=== PATIENT | male | born 1955 | race Two or more races ===

== ENCOUNTER 2019-12-13 07:27 | Day surgery (SDC) | payer MEDICARE, SELFPAY ==
[2019-12-10 12:56] VITALS: BMI 28.8
--- NOTE | 2019-12-10 13:15 | HO.ANESPROP2 ---
FORMERLY [facility], LATER [facility] Past Medical History Medical History (Updated 12/10/19 @ 13:16 by Cherelle Lindsay) Abdominal mass Allergic rhinitis BPH (benign prostatic hyperplasia) Diabetes Elevated cholesterol Elevated PSA GERD (gastroesophageal reflux disease) Presbyopia Surgical History Surgical History (Updated 12/10/19 @ 13:00 by Mateo Burns) History of inguinal hernia repair, bilateral History of lithotripsy History of local excision of skin lesion History of parathyroidectomy History of prostate surgery Meds Allergies Allergy/AdvReac Type Severity Reaction Status Date / Time aspirin [ASPIRIN] Allergy Unknown LOW Unverified 11/25/19 19:29 PLATELETS Finasteride Allergy Unknown lower Uncoded 09/08/19 00:00 etremity parasthesia Home Medications Medication Instructions Recorded Confirmed Type atorvastatin 1 tab PO DAILY 12/10/19 12/10/19 History doxazosin 2 tab PO DAILY 12/10/19 12/10/19 History dutasteride 1 cap PO DAILY 12/10/19 12/10/19 History fluticasone propionate 1 spray INTRANASAL DAILY 12/10/19 12/10/19 History loratadine 1 tab PO DAILY 12/10/19 12/10/19 History metformin 1 tab PO BID 12/10/19 12/10/19 History omeprazole 1 cap PO DAILY 12/10/19 12/10/19 History Exam Exam Date and Time: December 10, 2019 1315 Height,Weight and Vital Signs: Height 5 ft 8 in Weight 86.183 kg Assessment and Plan Assessment Anesthesia Assessment: Chart Reviewed
[2019-12-13] VITALS (12 sets, daily range): BP systolic 126–145; BP diastolic 79–92; PULSE 66–78; RESP 16–18; TEMP 36.1–36.3; O2SAT 96–98
[2019-12-13 08:20] LABS: Glucose, Whole Blood 94 mg/dL (60-115)
[2019-12-13] MEDS: levoFLOXacin 500 MG TABLET PO (08:35)
[2019-12-13] MEDS: Lactated Ringers 1,000 ML 100 ML IVCONT (08:35)
--- NOTE | 2019-12-13 08:48 | HO.ANESPROP2 ---
[facility] Past Medical History Medical History Abdominal mass Allergic rhinitis BPH (benign prostatic hyperplasia) Diabetes Elevated cholesterol Elevated PSA GERD (gastroesophageal reflux disease) Presbyopia Surgical History Surgical History History of inguinal hernia repair, bilateral History of lithotripsy History of local excision of skin lesion History of parathyroidectomy History of prostate surgery Social History Social History Smoking Status: Never smoker Use of substances other than those prescribed or required for medical reasons: No Have you been hit, kicked, punched, or otherwise hurt by someone within the past year? If so, by whom?: No Advance Directives: No (n/a) Advance Directives Information Provided: No Meds Allergies Allergy/AdvReac Type Severity Reaction Status Date / Time aspirin [ASPIRIN] Allergy Unknown LOW Unverified 11/25/19 19:29 PLATELETS Finasteride Allergy Unknown lower Uncoded 09/08/19 00:00 etremity parasthesia Home Medications Medication Instructions Recorded Confirmed Type atorvastatin 1 tab PO DAILY 12/10/19 12/10/19 History doxazosin 2 tab PO DAILY 12/10/19 12/10/19 History dutasteride 1 cap PO DAILY 12/10/19 12/10/19 History fluticasone propionate 1 spray INTRANASAL DAILY 12/10/19 12/10/19 History loratadine 1 tab PO DAILY 12/10/19 12/10/19 History metformin 1 tab PO BID 12/10/19 12/10/19 History omeprazole 1 cap PO DAILY 12/10/19 12/10/19 History Exam Exam Date and Time: December 13, 2019 0848 Height,Weight and Vital Signs: Height 5 ft 8 in Weight 86.183 kg Last Vital Signs Temp 97 F 12/13/19 08:19 Pulse 72 12/13/19 08:19 Resp 18 12/13/19 08:19 BP 131/80 12/13/19 08:19 Pertinent Lab Results Pertinent Lab Results: Laboratory Tests 12/13/19 08:17 POC Glucose 94 Assessment and Plan Assessment Anesthesia Assessment: Anesthesia Plan Discussed, Consent Obtained and PAT Visit Final Anesthetic Review NPO: Yes ASA Class: II Final Preanesthetic Review: No Changes in Pt Med Stat, Meds & Allergies Reviewed, Consent Obtained/Reviewed, Med/Surg/Anes Hx Reviewed and Anes Risks/Benef Reviewed Patient Risk: Intermediate Procedure Risk: Low Anesthetic Plan Anesthetic Plan: GA Disposition: Standard PACU
--- NOTE | 2019-12-13 11:12 | PM.OP ---
Brief Operative Note Date of procedure: 12/13/19 Pre-op diagnosis: Recurrent BPH Post-op diagnosis: same Procedure: Laser enucleation of prostate Anesthesia: SONIA Surgeon: Sai Snow Pathology: other (prostate) Condition: stable Disposition: same day
[2019-12-13] MEDS: oxyCODONE HCl Immed Release 5 MG TABLET PO (11:26)
--- NOTE | 2019-12-13 12:59 | HO.POSTANES ---
Post Anesthesia Evaluation Post Anesthesia Evaluation Vital Signs: Vital Signs Temp Pulse Resp BP Pulse Ox 12/13/19 12:19 68 18 142/90 H 97 12/13/19 12:04 67 18 145/92 H 97 12/13/19 11:49 68 18 141/90 H 97 12/13/19 11:44 71 18 138/82 96 12/13/19 11:39 66 18 138/85 97 12/13/19 11:34 67 16 126/84 96 12/13/19 11:29 70 18 126/79 97 12/13/19 11:18 69 18 136/84 98 12/13/19 11:13 75 16 144/84 H 96 12/13/19 11:08 72 18 144/85 H 97 12/13/19 11:03 97.3 F 78 16 134/80 96 12/13/19 08:19 97 F 72 18 131/80 Anesthesia: General LMA Mental Status: Awake Pain Control: Satisfactory Nausea/Vomiting: None Hydration: Adequate Anesthesia-Related Issues: No Anes. Related Issues
--- NOTE | 2019-12-14 20:18 | OP_ITS ---
SURGEON: Sai Snow MD PREOPERATIVE DIAGNOSIS: Recurrent benign prostatic hypertrophy. POSTOPERATIVE DIAGNOSIS: Recurrent benign prostatic hypertrophy. PROCEDURE PERFORMED: Laser enucleation of the prostate. ESTIMATED BLOOD LOSS: COMPLICATIONS: ANESTHESIA: General. ASSISTANTS: SPECIMENS: Prostate tissue. INDICATIONS FOR PROCEDURE: This is a 64-year-old male. Progressive urinary weakness of stream and incomplete emptying. On cystoscopy, had regrowth of bilateral lobes. Had procedure performed on prostate in [place] greater than 10 years ago. He is aware that he needs a secondary procedure. DESCRIPTION OF PROCEDURE: After informed consent was verified, the patient was brought to the operating room and placed in supine position. Anesthesia administered per protocol. The patient was placed in modified dorsal lithotomy position and prepped and draped in sterile fashion. Safety pause time-out observed. Antibiotics had been given. A 24-Faroese laser resectoscope placed. No abnormalities of the bladder. Both ureteric orifices were normal in position. There was regrowth of both lateral lobes. We focused first on the right side. We developed the 7 o'clock groove more to the lateral side, undermining the lateral lobe. We then developed a groove at the 11 o'clock position. The intervening tissue was ablated and enucleated. We then moved around to the median lobe and realized there had been some regrowth there. This was removed and the floor was flattened. We moved to the left lobe and a similar procedure was repeated with undermining at the 5 o'clock position and then groove taken in the 1 o'clock position down to fibers and the intervening tissue removed. In the medium lobe area, we did encounter some prostatic calcifications indicative of the junction between the surgical capsule on the rest of the prostate. At the completion of the procedure, we were able to get fragments of the tissue. When the procedure was completed, we had placed a 22-Faroese to a 30 mL Arredondo catheter. He tolerated the procedure well, was extubated in the operating room, and transferred in stable condition to the recovery area. Approximately, 96 kJ energy was used. Please see laser form for further details. MD BETTIE Torrez/ARACELI / [phone] MTDLaurne
== END 2019-12-13 13:00 | disposition home or self-care (01) ==
PROVIDERS: PCP Physician Assistant; Visit Provider Urology
PROC: 0V507ZZ Destruction of Prostate, Via Natural or Artificial Opening (ICD-10-PCS; CPT 52648; principal; 2019-12-13 09:40)
DX: N40.1 Benign prostatic hyperplasia with lower urinary tract symptoms (principal); R39.12 Poor urinary stream; R39.11 Hesitancy of micturition; R97.20 Elevated prostate specific antigen [PSA]; I10 Essential (primary) hypertension; E11.9 Type 2 diabetes mellitus without complications; K21.9 Gastro-esophageal reflux disease without esophagitis; E78.00 Pure hypercholesterolemia, unspecified; J30.9 Allergic rhinitis, unspecified
CPT/HCPCS: 52648; 82947; 88305; J2250; J3010

== ENCOUNTER → 2019-12-16 09:27 | Outpatient (BNVA) | payer MEDICARE, SELFPAY | PROVIDERS: PCP Physician Assistant; Visit Provider Urology | DX: Z48.816 Encounter for surgical aftercare following surgery on the genitourinary system (principal); Z46.6 Encounter for fitting and adjustment of urinary device | CPT/HCPCS: 51798; 99024; 99212 ==

== ENCOUNTER → 2020-01-25 09:55 | Outpatient (BNVA) | payer MEDICARE, SELFPAY | PROVIDERS: PCP Physician Assistant; Referring Provider Physician Assistant; Visit Provider Urology | DX: N40.1 Benign prostatic hyperplasia with lower urinary tract symptoms (principal); N13.8 Other obstructive and reflux uropathy; N52.9 Male erectile dysfunction, unspecified | CPT/HCPCS: 51798; 81002; 99212 ==

== ENCOUNTER 2020-02-11 08:44 | Outpatient (REF) | payer MEDICARE, SELFPAY ==
[2020-02-11 10:14] LABS: MANUAL DIFF FLAG NO
[2020-02-11 10:26] LABS: Basophils Percent Auto 0.4 % (0-2); Eosinophils Absolute Auto 0.1 X10*3/uL (0.0-0.4); Eosinophils Percent Auto 1.3 % (0-4); Hematocrit 46.3 % (42-52); Hemoglobin 14.9 g/dl (14.0-18.0); Imm Gran Abs Auto 0.01 X10*3/uL (0.00-0.03); Imm Gran Pct Auto 0.2 % (0.0-0.4); Lymphocytes Percent Auto 36.8 % (20-40); Mean Corpuscular HGB Conc 32.2 g/dl (31.0-36.0); Mean Corpuscular Hemoglobin 30.2 pg (27.0-33.0); Mean Corpuscular Volume 93.7 fL (80-98); Mean Platelet Volume 12.3 fL (9.4-12.4); Monocytes Absolute Auto 0.6 X10*3/uL (0.1-1.2); Monocytes Percent Auto 10.1 % (2-11); Neutrophils Absolute Auto 2.8 X10*3/uL (2.0-8.3); Neutrophils Percent Auto 51.2 % (45-73); Platelet Count 121 X10*3/uL (160-400); Red Blood Count 4.94 X10*6/uL (4.60-5.80); Red Cell Distribution Width 11.8 % (11.0-16.0); White Blood Count 5.5 X10*3/uL (4.8-10.8)
[2020-02-11 10:36] LABS: Alanine Aminotransferase 35 U/L (0-40); Albumin Level 4.2 g/dL (3.5-5.0); Alkaline Phosphatase 54 U/L (39-117); Anion Gap 14 (12-20); Aspartate Amino Transferase 26 U/L (5-37); Bilirubin Total 0.7 mg/dL (0.0-1.0); Blood Urea Nitrogen 24 mg/dL (9-16); Calcium 8.8 mg/dL (8.4-10.2); Carbon Dioxide 29 mmol/L (22-29); Chloride 101 mmol/L (96-108); Cholesterol 165 mg/dL; Estimated Average Glucose 126 mg/dL; Estimated Glomerular Filt Rate > 60; Glucose Fasting 83 mg/dL (60-99); HDL Cholesterol 50 mg/dL; LDL Cholesterol Calculated 103 mg/dl; Potassium 4.3 mmol/l (3.3-5.1); Sodium 140 mmol/L (135-145); Triglycerides 64 mg/dL
[2020-02-11 10:58] LABS: TSH reflex Free T4 2.48 mIU/mL (0.32-4.0)
[2020-02-11 11:17] LABS: Creatinine Urine 120.58 mg/dL; Microalbum/Creatinine Ratio Ur 70.4 ug/mg cr
== END 2020-02-11 08:45 | disposition home or self-care (01) ==
LOC: HO.LAB 08:44
PROVIDERS: PCP Physician Assistant; Visit Provider Physician Assistant
DX: E11.9 Type 2 diabetes mellitus without complications (principal); I10 Essential (primary) hypertension
CPT/HCPCS: 36415; 80053; 80061; 82043; 83036; 84443; 85025

== ENCOUNTER 2020-04-21 09:23 | Outpatient (REF) | payer MEDICARE, SELFPAY ==
[2020-04-21 11:15] LABS: PSA,Total (Free>4and<10) 2.77 ng/mL (0.00-4.00)
== END 2020-04-21 09:24 | disposition home or self-care (01) ==
LOC: HO.LAB 09:23
PROVIDERS: PCP Physician Assistant; Visit Provider Urology
DX: N40.1 Benign prostatic hyperplasia with lower urinary tract symptoms (principal); N13.8 Other obstructive and reflux uropathy; Z12.5 Encounter for screening for malignant neoplasm of prostate
CPT/HCPCS: 36415; 84153

== ENCOUNTER 2020-07-13 07:12 | Outpatient (REF) | payer MEDICARE, SELFPAY ==
[2020-07-13 08:45] LABS: Hemoglobin 15.5 g/dl (14.0-18.0); Mean Corpuscular Hemoglobin 30.9 pg (27.0-33.0); Mean Corpuscular Volume 93.8 fL (80-98); Mean Platelet Volume 12.1 fL (9.4-12.4); Platelet Count 115 X10*3/uL (160-400); Red Blood Count 5.01 X10*6/uL (4.60-5.80); Red Cell Distribution Width 11.7 % (11.0-16.0); White Blood Count 4.5 X10*3/uL (4.8-10.8)
[2020-07-13 08:58] LABS: Alanine Aminotransferase 33 U/L (0-40); Albumin Level 4.2 g/dL (3.5-5.0); Alkaline Phosphatase 56 U/L (39-117); Anion Gap 13 (12-20); Aspartate Amino Transferase 25 U/L (5-37); Bilirubin Total 0.7 mg/dL (0.0-1.0); Blood Urea Nitrogen 18 mg/dL (9-16); Calcium 9.1 mg/dL (8.4-10.2); Carbon Dioxide 30 mmol/L (22-29); Chloride 102 mmol/L (96-108); Cholesterol 191 mg/dL; Estimated Glomerular Filt Rate > 60; Glucose Fasting 117 mg/dL (60-99); HDL Cholesterol 54 mg/dL; LDL Cholesterol Calculated 127 mg/dl; Potassium 4.5 mmol/L (3.3-5.1); Sodium 140 mmol/L (135-145); Total Protein 7.1 g/dL (6.5-8.0); Triglycerides 54 mg/dL
[2020-07-13 09:11] LABS: Estimated Average Glucose 137 mg/dL; Hemoglobin A1c % 6.4 %
[2020-07-13 09:23] LABS: TSH reflex Free T4 1.49 uIU/mL (0.32-4.0)
== END 2020-07-13 07:13 | disposition home or self-care (01) ==
LOC: HO.LAB 07:12
PROVIDERS: Visit Provider Physician Assistant
DX: I10 Essential (primary) hypertension (principal); E11.9 Type 2 diabetes mellitus without complications
CPT/HCPCS: 36415; 80053; 80061; 83036; 84443; 85027

== ENCOUNTER → 2020-08-03 13:24 | Outpatient (BNVA) | payer MEDICARE, SELFPAY | PROVIDERS: PCP Physician Assistant; Visit Provider Urology | DX: N52.9 Male erectile dysfunction, unspecified (principal); N40.1 Benign prostatic hyperplasia with lower urinary tract symptoms | CPT/HCPCS: 99212 ==

== ENCOUNTER → 2020-11-21 08:26 | Outpatient (BNVA) | payer MEDICARE, SELFPAY | PROVIDERS: PCP Physician Assistant; Referring Provider Physician Assistant; Visit Provider Nurse Practitioner Family | DX: G47.19 Other hypersomnia (principal); G47.9 Sleep disorder, unspecified | CPT/HCPCS: 99202 ==

== ENCOUNTER → 2020-12-12 10:44 | Outpatient (REF) | payer MEDICARE, SELFPAY | LOC: HO.SL 10:44 | PROVIDERS: PCP Physician Assistant; Visit Provider Nurse Practitioner Family | DX: G47.19 Other hypersomnia (principal); G47.9 Sleep disorder, unspecified; G47.00 Insomnia, unspecified; I10 Essential (primary) hypertension; E11.9 Type 2 diabetes mellitus without complications | CPT/HCPCS: 95806 ==

== ENCOUNTER → 2021-02-06 14:37 | Outpatient (BNVA) | payer MEDICARE, SELFPAY | PROVIDERS: PCP Physician Assistant; Visit Provider Urology | DX: N40.1 Benign prostatic hyperplasia with lower urinary tract symptoms (principal); N52.9 Male erectile dysfunction, unspecified; N48.6 Induration penis plastica | CPT/HCPCS: 51798; 99212 ==

== ENCOUNTER 2021-02-26 08:02 | Outpatient (REF) | payer MEDICARE, SELFPAY ==
[2021-02-26 09:11] LABS: Estimated Average Glucose 140 mg/dL; Hemoglobin A1c % 6.5 %
[2021-02-26 09:27] LABS: Alanine Aminotransferase 33 U/L (0-40); Albumin Level 4.2 g/dL (3.5-5.0); Alkaline Phosphatase 49 U/L (39-117); Anion Gap 12 (12-20); Aspartate Amino Transferase 21 U/L (5-37); Bilirubin Total 0.4 mg/dL (0.0-1.0); Blood Urea Nitrogen 17 mg/dL (9-16); Calcium 9.7 mg/dL (8.4-10.2); Carbon Dioxide 32 mmol/L (22-29); Chloride 102 mmol/L (96-108); Cholesterol 174 mg/dL; Estimated Glomerular Filt Rate > 60; Glucose Fasting 91 mg/dL (60-99); HDL Cholesterol 50 mg/dL; LDL Cholesterol Calculated 109 mg/dl; Potassium 4.6 mmol/L (3.3-5.1); Sodium 141 mmol/L (135-145); Total Protein 7.1 g/dL (6.5-8.0); Triglycerides 79 mg/dL
[2021-02-26 09:52] LABS: TSH reflex Free T4 1.92 uIU/mL (0.32-4.0)
[2021-02-26 10:13] LABS: Hematocrit 46.8 % (42.0-52.0); Hemoglobin 16.3 g/dl (14.0-18.0); Mean Corpuscular HGB Conc 34.8 g/dl (31.0-36.0); Mean Corpuscular Volume 94.7 fL (80.0-98.0); Mean Platelet Volume 12.2 fL (9.4-12.4); Platelet Count 123 X10*3/uL (160-400); Red Blood Count 4.94 X10*6/uL (4.60-5.80); Red Cell Distribution Width 11.3 % (11.0-16.0); White Blood Count 4.5 X10*3/uL (4.8-10.8)
[2021-02-26 10:53] LABS: Creatinine Urine 146.94 mg/dL; Microalbum/Creatinine Ratio Ur 18.3 ug/mg cr
== END 2021-02-26 08:03 | disposition home or self-care (01) ==
LOC: HO.LAB 08:02
PROVIDERS: PCP Physician Assistant; Visit Provider Physician Assistant
DX: E11.65 Type 2 diabetes mellitus with hyperglycemia (principal); I10 Essential (primary) hypertension
CPT/HCPCS: 36415; 80053; 80061; 82043; 83036; 84443; 85027

== ENCOUNTER 2021-05-15 14:01 | Outpatient (REF) | payer MEDICARE, SELFPAY ==
--- NOTE | ~2021-05-15 | XR_ITS ---
EXAMINATION: XR ABDOMEN COMPLETE CLINICAL INDICATION: This is a 66-year-old male with noninfectious gastroenteritis and colitis, unspecified. COMPARISON: Comparison is made to a previous KUB dated 05/13/2018. TECHNIQUE: 2 views of the abdomen. FINDINGS: There is a nonobstructive bowel gas pattern present. Air and fluid is seen in the distribution of the colon. There appears to be increased fullness and soft tissue density overlying the anatomic region of the left kidney. This may represent an increasing mass within the left kidney. A CT scan through the abdomen is recommended for better characterization. Again noted is the heterogeneous lucent lesion in the proximal left femur. This appears similar to the previous study. XR/XR abdomen 3V IMPRESSION: 1. Air and fluid levels are seen in the nondilated colon. There is a nonobstructive bowel gas pattern present. 2. There appears to be an increasing mass in the anatomic region of the left kidney. This would be best evaluated with a CT scan of the abdomen.
== END 2021-05-15 14:02 | disposition home or self-care (01) ==
LOC: HO.XRAY 14:01
PROVIDERS: PCP Physician Assistant; Visit Provider Physician Assistant
DX: K52.9 Noninfective gastroenteritis and colitis, unspecified (principal)
CPT/HCPCS: 74021

== ENCOUNTER 2021-05-16 09:09 | Outpatient (REF) | payer MEDICARE, SELFPAY ==
[2021-05-16 10:16] LABS: Hematocrit 48.8 % (42.0-52.0); Hemoglobin 15.8 g/dl (14.0-18.0); Mean Corpuscular HGB Conc 32.4 g/dl (31.0-36.0); Mean Corpuscular Hemoglobin 30.4 pg (27.0-33.0); Mean Platelet Volume 11.5 fL (9.4-12.4); Platelet Count 117 X10*3/uL (160-400); Red Blood Count 5.19 X10*6/uL (4.60-5.80); Red Cell Distribution Width 11.4 % (11.0-16.0)
[2021-05-16 10:27] LABS: Estimated Average Glucose 143 mg/dL; Hemoglobin A1c % 6.6 %
[2021-05-16 10:50] LABS: Alanine Aminotransferase 42 U/L (0-40); Alkaline Phosphatase 58 U/L (39-117); Anion Gap 10 (12-20); Aspartate Amino Transferase 23 U/L (5-37); Bilirubin Direct 0.3 mg/dL (0.0-0.5); Bilirubin Total 0.9 mg/dL (0.0-1.0); Blood Urea Nitrogen 9 mg/dL (9-16); Calcium 9.3 mg/dL (8.4-10.2); Carbon Dioxide 32 mmol/L (22-29); Chloride 103 mmol/L (96-108); Cholesterol 172 mg/dL; Estimated Glomerular Filt Rate > 60; Glucose Random 111 mg/dL (60-115); HDL Cholesterol 44 mg/dL; LDL Cholesterol Calculated 108 mg/dl; Lipase 31 U/L (8-78); Potassium 4.9 mmol/L (3.3-5.1); Sodium 140 mmol/L (135-145); Triglycerides 102 mg/dL
[2021-05-16 11:13] LABS: TSH reflex Free T4 1.92 uIU/mL (0.32-4.0)
== END 2021-05-16 09:10 | disposition home or self-care (01) ==
LOC: HO.LAB 09:09
PROVIDERS: PCP Physician Assistant; Visit Provider Physician Assistant
DX: K52.9 Noninfective gastroenteritis and colitis, unspecified (principal); I10 Essential (primary) hypertension; E11.65 Type 2 diabetes mellitus with hyperglycemia
CPT/HCPCS: 36415; 80048; 80061; 80076; 83036; 83690; 84443; 85027

== ENCOUNTER 2021-06-02 06:14 | Inpatient (IN) | payer OTHER, SELFPAY ==
--- NOTE | ~2021-06-02 | CT_ITS ---
EXAMINATION: CT ABDOMEN AND PELVIS WITH CONTRAST CLINICAL INFORMATION: Upper abdominal pain COMPARISON: Previous x-ray from earlier this month, abdominal ultrasound September [address] February 2018 TECHNIQUE: Multidetector volumetric images were obtained from the superior aspect of the liver through the pubic symphysis following administration 85 mL of Omnipaque 350 intravenous contrast. Sagittal and coronal reformatted images were obtained on the technologist's workstation. Oral contrast: Yes This CT examination was performed using dose optimization techniques as appropriate, variously including the following: *Automated exposure control *Adjustment of mA and/or kV according to patient size (this includes techniques or standardized protocols for targeted exams where dose is matched to indication/reason for exam; i.e. extremities or head) *Use of iterative reconstruction technique DLP: 538 mGy-cm FINDINGS: LUNG BASES: The visualized lung bases are unremarkable. LIVER, GALLBLADDER, AND BILIARY TREE: The liver is normal in size, shape, and attenuation. No focal hepatic lesion or biliary ductal dilatation is present. The gallbladder is upper normal in size. There are gallstones. There is gallbladder wall thickening or edema. There is a stranding of the pericholecystic fat. Findings are suggestive of acute cholecystitis. PANCREAS: Unremarkable. SPLEEN: Unremarkable. ADRENAL GLANDS: Unremarkable. KIDNEYS AND URETERS: There is a large 8 cm left renal cyst. There is a 3 mm stone in the lower pole the left kidney. BLADDER: The prostate gland is enlarged and protrudes into the base of the bladder. The bladder is otherwise unremarkable. GASTROINTESTINAL TRACT: The small and large bowel are unremarkable. The appendix is unremarkable. ABDOMINAL WALL: No significant hernia is appreciated. LYMPH NODES: Normal. VASCULAR: Unremarkable. PELVIC VISCERA: Prostate gland is enlarged and protrudes into the base of the bladder. OSSEOUS STRUCTURES: There are degenerative changes of the spine. There is stable partially visualized lesion in the left femoral intertrochanteric region. Going back to August 2017 suggestive of a benign process. CT/CT abdomen pelvis w con IMPRESSION: Gallstones and probable acute cholecystitis. Largest left renal cyst. Small nonobstructing left renal stone. Slightly enlarged prostate gland. Stable left femoral intertrochanteric bone lesion. Fleischner guidelines were followed.
--- NOTE | 2021-06-02 06:31 | ECG_ITS ---
Test Reason : ABNOMINAL PAIN Blood Pressure : / mmHG Vent. Rate : 077 BPM Atrial Rate : 077 BPM P-R Int : 212 ms QRS Dur : 082 ms QT Int : 364 ms P-R-T Axes : 037 014 019 degrees QTc Int : 411 ms Sinus rhythm with 1st degree A-V block Otherwise normal ECG No previous ECGs available Referred By: Abbey Kennedy Electronically Signed By:Christopher Alarcon
[2021-06-02 06:41] VITALS: BP 172/99; BP 182/92; PULSE 77; RESP 18; TEMP 36.4; O2SAT 97; BMI 27.0
--- NOTE | 2021-06-02 06:49 | ED_ITS ---
HPI - Abdominal Pain General Chief Complaint: Abdominal Pain Stated Complaint: abd pain Time Seen by Provider: 06/02/21 06:31 Source: patient Mode of arrival: EMS History of Present Illness HPI narrative: 66 years old male presented to the ED via ambulance with chief complaint of upper abdominal pain since that 3 am, denies any shortness of breath denies any vomiting any diarrhea, the pain is localized in the upper abdomen epigastric jacqueline garcia MD elicited complaint: abdominal pain Onset (ago): hour(s) (4) Pain Consistency: constant Location: epigastric Severity: moderate Quality: aching Radiation: epigastric Migration to: no migration Exacerbating factors: nothing Relieving factors: nothing Associated symptoms: denies other symptoms Related Data Home Medications Medication Instructions Recorded Confirmed doxazosin 4 mg tablet 2 tab PO DAILY 12/10/19 05/15/21 fluticasone propionate 50 spray INTRANASAL 02/06/21 05/15/21 mcg/actuation nasal spray,suspension Previous Rx's Medication Instructions Recorded atorvastatin 40 mg tablet 80 mg PO DAILY 90 Days #180 tab 07/27/20 acetaminophen 500 mg capsule 500 mg PO Q6H PRN 15 Days #60 cap 08/28/20 loratadine 10 mg tablet 10 mg PO DAILY #90 tab 09/20/20 omeprazole 20 mg capsule,delayed 20 mg PO DAILY #90 cap 10/23/20 release metformin 500 mg tablet 500 mg PO BID #180 tab 11/14/20 cimetidine 200 mg tablet 200 mg PO DAILY #90 tab 11/19/20 lidocaine HCl 2 % mucosal solution 15 ml MUCOUS MEMBRANE Q3H PRN 10 11/28/20 (Lidocaine Viscous) Days #100 ml lisinopril 20 mg tablet 20 mg PO DAILY 90 Days #90 tab 02/28/21 amoxicillin 500 mg-potassium 1 tab PO BID 7 Days #14 tab 05/18/21 clavulanate 125 mg tablet (Augmentin) Allergies Allergy/AdvReac Type Severity Reaction Status Date / Time aspirin [ASPIRIN] Allergy Unknown LOW Verified 05/15/21 13:42 PLATELETS finasteride Allergy Unknown lower Verified 05/15/21 13:42 extremity parasthesia Review of Systems Review of Systems Yes all other systems are reviewed and are negative Constitutional: Denies fever(s) Cardiovascular: Reports Epigastric Pain and Denies dyspnea Respiratory: Denies cough and Denies dyspnea Gastrointestinal: Reports abdominal pain and Denies diarrhea PMF Past Medical History Medical History Abdominal mass Allergic rhinitis BPH (benign prostatic hyperplasia) BPH loc w urin obs/LUTS Diabetes Elevated cholesterol Elevated PSA GERD (gastroesophageal reflux disease) Headache Pharyngitis Presbyopia Surgical History History of colonoscopy History of inguinal hernia repair, bilateral History of lithotripsy History of local excision of skin lesion History of parathyroidectomy History of prostate surgery Family History Family History Mother No problems noted. Father No problems noted. Social History Social History Housing: House Alcohol intake: never Patient Tobacco Use Status: Never used Tobacco Advance Directives: No Advance Directives Information Provided: No service: No Current occupational status: employed Physical Exam ED Vital Signs: Vital Signs - 24 hr 06/02/21 06:41 06/02/21 09:09 Temperature 97.5 F Pulse Rate 77 88 Respiratory Rate 18 20 Blood Pressure 172/99 H 131/84 Pulse Oximetry 97 96 BMI result Body Mass Index 27.0 Const General: cooperative and no acute distress Nutritional Appearance: average body habitus Orientation/consciousness: patient oriented x3 HENMT Head: Yes normal to inspection Face and sinus: Yes normal facial exam Throat: Yes posterior oropharynx normal Neck Neck: Yes normal visual inspection, Yes full ROM and Yes no lymphadenopathy Thyroid: Thyroid normal Chest Chest palpation & inspection: normal inspection of the chest Resp Effort & Inspection: normal respiratory effort and able to speak in complete sentences Auscultation: clear to auscultation bilaterally Cardio Jugular venous distension: no JVD Rate: regular rate Rhythm: regular rhythm GI Inspection: Yes normal to inspection Palpation (GI): Tenderness to palpation present (GI) (epigastric tenderness) Auscultation: normal bowel sounds Skin General skin exam: no rashes or lesions noted, elasticity normal and turgor normal Rashes: no rashes Neuro General: patient oriented x3 Cranial nerves: Yes CN's II-XII intact bilaterally Course Reevaluation(s) Reevaluation #1: Spoke with surgery Dr Wiley will see pt in ED Reevaluation #2: Seen by Dr Wiley will admit to Dr Wiley service MDM - Abdominal Pain Lab Data Result diagrams: 06/02/21 07:00 06/02/21 07:00 Labs: Lab Results 06/02/21 06/02/21 06/02/21 Range/Units 07:00 07:00 09:05 WBC 9.0 (4.8-10.8) X10*3/uL RBC 5.03 (4.60-5.80) X10*6/uL Hgb 15.3 (14.0-18.0) g/dl Hct 46.4 (42.0-52.0) % MCV 92.2 (80.0-98.0) fL MCH 30.4 (27.0-33.0) pg MCHC 33.0 (31.0-36.0) g/dl RDW 11.3 (11.0-16.0) % Plt Count 116 L (160-400) X10*3/uL MPV 11.6 (9.4-12.4) fL Immature Gran % (Auto) 0.2 (0.0-0.4) % Neut % (Auto) 84.0 H (45-73) % Lymph % (Auto) 11.5 L (20-40) % Warren % (Auto) 4.0 (2-11) % Eos % (Auto) 0.2 (0-4) % Baso % (Auto) 0.1 (0-2) % Lymph # (Auto) 1.0 L (1.2-4.9) X10*3/uL Warren # (Auto) 0.4 (0.1-1.2) X10*3/uL Eos # (Auto) 0.0 (0.0-0.4) X10*3/uL Baso # (Auto) 0.0 (0.0-0.2) X10*3/uL Abs Immat Gran (auto) 0.02 (0.00-0.03) X10*3/uL Absolute Neuts (auto) 7.6 (2.0-8.3) x10*3/uL Absolute Nucleated RBC 0.000 (0.0-0.012) X10*3/uL Nucleated RBC % (auto) 0.0 (0.0-0.2) /100WBC Sodium 139 (135-145) mmol/L Potassium 5.3 H (3.3-5.1) mmol/L Chloride 101 (96-108) mmol/L Carbon Dioxide 30 H (22-29) mmol/L Anion Gap 13 (12-20) BUN 20 H D (9-16) mg/dL Creatinine 1.10 (0.5-1.4) mg/dL Estim Creat Clear Calc 62.1 Estimated GFR > 60 Random Glucose 174 H D (60-115) mg/dL Calcium 9.8 (8.4-10.2) mg/dL Total Bilirubin 0.5 (0.0-1.0) mg/dL Direct Bilirubin 0.3 (0.0-0.5) mg/dL AST 25 (5-37) U/L ALT 50 H (0-40) U/L Alkaline Phosphatase 54 (39-117) U/L Total Protein 7.3 (6.5-8.0) g/dL Albumin 4.3 (3.5-5.0) g/dL Lipase 60 (8-78) U/L Urine Color YELLOW Urine Appearance CLEAR Urine pH 7.0 (5.0-8.0) Ur Specific Stewart 1.015 (1.005-1.025) Urine Protein NEG (NEG-TRACE) MG/DL Urine Glucose (UA) NEG (NEG) MG/DL Urine Ketones NEG (NEG) MG/DL Urine Blood NEG (NEG) Urine Nitrite NEG (NEG) Ur Leukocyte Esterase NEG (NEG) ECG Data Attestation: I personally reviewed and interpreted this ECG as follows: ECG interpretation time: 06:54 Interpretation: ASTROINTESTINAL TRACT: The small and large bowel are unremarkable. The appendix is unremarkable.? ABDOMINAL WALL: No significant hernia is appreciated.? LYMPH NODES: Normal. VASCULAR: Unremarkable. PELVIC VISCERA: Prostate gland is enlarged and protrudes into the base of the bladder. OSSEOUS STRUCTURES: There are degenerative changes of the spine. There is stable partially visualized lesion in the left femoral intertrochanteric region. Going back to August 2017 suggestive of a benign process.? CT/CT abdomen pelvis w con IMPRESSION: Gallstones and probable acute cholecystitis. Largest left renal cyst. Small nonobstructing left renal stone. Slightly enlarged prostate gland. Stable left femoral intertrochanteric bone lesion. ? Fleischner guidelines were followed. Pacemaker model: NSR 77 no ischemic changes Discharge Plan Discharge Clinical Impression: Gallstone, Cholecystitis Patient Disposition: Admitted As Inpatient
[2021-06-02 07:11] LABS: MANUAL DIFF FLAG NO
[2021-06-02 07:16] LABS: Basophils Percent Auto 0.1 % (0-2); Eosinophils Percent Auto 0.2 % (0-4); Hematocrit 46.4 % (42.0-52.0); Hemoglobin 15.3 g/dl (14.0-18.0); Imm Gran Abs Auto 0.02 X10*3/uL (0.00-0.03); Imm Gran Pct Auto 0.2 % (0.0-0.4); Lymphocytes Percent Auto 11.5 % (20-40); Mean Corpuscular Hemoglobin 30.4 pg (27.0-33.0); Mean Corpuscular Volume 92.2 fL (80.0-98.0); Mean Platelet Volume 11.6 fL (9.4-12.4); Monocytes Absolute Auto 0.4 X10*3/uL (0.1-1.2); Neutrophils Absolute Auto 7.6 x10*3/uL (2.0-8.3); Platelet Count 116 X10*3/uL (160-400); Red Blood Count 5.03 X10*6/uL (4.60-5.80); Red Cell Distribution Width 11.3 % (11.0-16.0)
[2021-06-02] MEDS: ondansetron HCL 4 MG/2 ML VIAL IVPUSH (07:25)
[2021-06-02] MEDS: Famotidine/PF 20 MG/2 ML VIAL IVPUSH (07:25)
[2021-06-02] MEDS: Morphine Sulfate 4 MG/ML CARTRIDGE IVPUSH ×2 (07:25→10:08)
[2021-06-02 07:28] LABS: Alanine Aminotransferase 50 U/L (0-40); Albumin Level 4.3 g/dL (3.5-5.0); Alkaline Phosphatase 54 U/L (39-117); Anion Gap 13 (12-20); Aspartate Amino Transferase 25 U/L (5-37); Bilirubin Direct 0.3 mg/dL (0.0-0.5); Bilirubin Total 0.5 mg/dL (0.0-1.0); Blood Urea Nitrogen 20 mg/dL (9-16); Calcium 9.8 mg/dL (8.4-10.2); Carbon Dioxide 30 mmol/L (22-29); Chloride 101 mmol/L (96-108); Creatinine Clr Calc Pharmacy 62.1; Estimated Glomerular Filt Rate > 60; Glucose Random 174 mg/dL (60-115); Lipase 60 U/L (8-78); Potassium 5.3 mmol/L (3.3-5.1); Sodium 139 mmol/L (135-145); Total Protein 7.3 g/dL (6.5-8.0)
--- NOTE | 2021-06-02 07:48 | PC.NURSE ---
Pt A&OX3, pain 10/17 to diffuse abd, denies any N/V/D at this time. Medicated as per MAR orders. Call beasley within reach. Will continue to monitor.
[2021-06-02] MEDS: iohexoL 350 MG/ML 100 ML INFUS..BTL IV (08:23)
[2021-06-02 09:09] VITALS: BP 131/84; PULSE 88; RESP 20; O2SAT 96
[2021-06-02 09:24] LABS: Appearance Urine CLEAR; Color Urine YELLOW; Glucose Urine UA NEG (NEG); Leukocyte Esterase Urine NEG (NEG); Nitrite Urine NEG (NEG); Specific Gravity - Urine 1.015 (1.005-1.025); Urine Blood NEG (NEG); Urine Ketones NEG (NEG); Urine Protein NEG (NEG-TRACE)
--- NOTE | 2021-06-02 10:33 | P.HPGS_ITS ---
History of Present Illness History of Present Illness Date of Service: 06/02/21 Chief complaint: Acute cholecystitis, cholelithiasis Narrative: Olivier Valentine is a 66 year old male with history of diabetes, hyperlipidemia, hypertension, and GERD, presenting with complaints of abdominal pain in the upper abdomen found to have acute cholecystitis. His pain began at 03:00 this morning he was localized in the upper abdomen extending down to a periumbilical region mainly on the right side. The pain was associated with nausea and vomiting without fever or chills. He denies a previous history of similar pain in the past. He reports shortness of breath associated with the abdominal pain. He was subsequently brought to the emergency department by ambulance. In the ED was noted to be tender in the right upper quadrant with a positive Najera sign. Laboratories revealed a normal WBC. CT of the abdomen and pelvis however revealed a distended gallbladder with thickened gallbladder wall and gallstones within the gallbladder. Findings were suggestive of acute cholecystitis. He is admitted to the surgical service for further management. Review of Systems Constitutional: Constitutional: Denies chills, Denies fever(s), Denies headache(s) and Reports poor appetite ENT: Denies dizziness and Denies headache(s) Cardiovascular: Cardiovascular: Denies chest pain, Denies rapid heart rate, Denies palpitations and Denies slow heart rate Respiratory: Respiratory: Denies chest congestion, Denies cough, Denies pain on inspiration and Denies wheezing Gastrointestinal: Gastrointestinal: Reports abdominal pain, Denies bloating, Denies change in stool character, Denies constipation, Denies diarrhea, Reports nausea, Reports vomiting and Denies hematemesis Musculoskeletal: Musculoskeletal: Denies back pain, Denies arthralgias, Denies joint swelling and Denies numbness Integumentary/Breasts: Skin/Breast: Denies change in pigmentation, Denies erythema and Denies rash Neurologic: Denies dizziness, Denies headache(s) and Denies numbness Psychiatric: Psychiatric: Denies anxiety and Denies depression Endocrine: Endocrine: Denies palpitations Hematologic/Lymphatic: Hematologic/Lymphatic: Denies easy bleeding, Denies easy bruising and Denies lymphadenopathy Allergic/Immunologic: Allergic/Immunologic: Denies wheezing PMFSH Past Medical History Medical History Abdominal mass Allergic rhinitis BPH (benign prostatic hyperplasia) BPH loc w urin obs/LUTS Diabetes Elevated cholesterol Elevated PSA GERD (gastroesophageal reflux disease) Headache Pharyngitis Presbyopia Family History Family History Mother No problems noted. Father No problems noted. Surgical History Surgical History History of colonoscopy History of inguinal hernia repair, bilateral History of lithotripsy History of local excision of skin lesion History of parathyroidectomy History of prostate surgery Social History Social History Housing: House Alcohol intake: never Patient Tobacco Use Status: Never used Tobacco Advance Directives: No Advance Directives Information Provided: No service: No Current occupational status: employed Meds Allergies Allergy/AdvReac Type Severity Reaction Status Date / Time aspirin [ASPIRIN] Allergy Unknown LOW Verified 05/15/21 13:42 PLATELETS finasteride Allergy Unknown lower Verified 05/15/21 13:42 extremity parasthesia Active Medications: Current Medications Acetaminophen (Acetaminophen 325 Mg Tablet) 650 mg PO Q6H PRN PRN Reason: Pain, Mild (Pain Scale 1-3) Hydromorphone HCl (Hydromorphone Hcl 1 Mg/Ml Syringe) 0.5 mg IVPUSH Q4H PRN; Protocol PRN Reason: Pain, Severe (Pain Scale 7-10) Lactated Ringer's (Lr) 1,000 mls @ 100 mls/hr IVCONT .Q10H PAULA Piperacillin Sod/Tazobactam (Sod 3.375 gm/ Sodium Chloride) 50 mls @ 100 mls/hr IV Q6H PAULA Ondansetron HCl (Ondansetron Hcl 4 Mg/2 Ml Vial) 4 mg IVPUSH Q8H PRN PRN Reason: Nausea and Vomiting Oxycodone HCl (Oxycodone Hcl Immed Release 5 Mg Tablet) 5 mg PO Q6H PRN PRN Reason: Pain, Moderate (Pain Scale 4-6 Pharmacy Consult (Consult Rx Perform Med Rec) 1 each MISCELLANE ONCE PRN PRN Reason: Consult order Sodium Chloride (0.9 % Sodium Chloride Flush 3 Ml Syringe) 3 ml IVFLUSH QSHIFT PAULA Zolpidem Tartrate (Zolpidem Tartrate 5 Mg Tablet) 5 mg PO BEDTIME PRN PRN Reason: Insomnia Home Medications Medication Instructions Recorded Confirmed Last Taken Type doxazosin 4 mg tablet 2 tab PO DAILY 12/10/19 05/15/21 Unknown History fluticasone propionate 50 spray INTRANASAL 02/06/21 05/15/21 Unknown History mcg/actuation nasal spray,suspension Physical Exam Vital Signs: Vital Signs: Last Vital Signs Temp 97.5 F 06/02/21 06:41 Pulse 88 06/02/21 09:09 Resp 20 06/02/21 09:09 BP 131/84 06/02/21 09:09 Pulse Ox 96 06/02/21 09:09 BMI result Body Mass Index 27.0 Const: General: cooperative, comfortable and well developed Nutritional Appearance: well nourished Orientation/consciousness: patient oriented x3 HEENT: Head: Yes normocephalic and Yes atraumatic Ears: hearing grossly normal bilaterally Eyes: Sclerae: sclerae normal EOM: EOMs intact bilaterally Neck: Neck: Yes normal visual inspection Resp: Effort & Inspection: normal respiratory effort, no cough, no respiratory distress and no stridor Cardio: Jugular venous distension: no JVD GI: Inspection: Yes normal to inspection Palpation (GI): Soft to palpation, Tenderness to palpation present (GI) in the epigastrum, in the RUQ and Najera's sign positive, no guarding, not rigid and No Rebound tenderness present Percussion: Yes normal to percussion Auscultation: normal bowel sounds Rectal Exam - Male: Yes deferred Skin: General skin exam: dry skin Rashes: no rashes Neuro: General: patient oriented x3 and no focal motor deficits Extrem: General: Yes full ROM and Yes no clubbing, cyanosis or edema Psych: Appearance: grossly normal Results Results Labs: Short CBC 06/02/21 Range/Units 07:00 WBC 9.0 (4.8-10.8) X10*3/uL Hgb 15.3 (14.0-18.0) g/dl Hct 46.4 (42.0-52.0) % Plt Count 116 L (160-400) X10*3/uL BMP 06/02/21 07:00 Sodium 139 Potassium 5.3 H Chloride 101 Carbon Dioxide 30 H BUN 20 H D Creatinine 1.10 Calcium 9.8 Liver Function 03/26/22 Range/Units 07:00 Total Bilirubin 0.5 (0.0-1.0) mg/dL Direct Bilirubin 0.3 (0.0-0.5) mg/dL AST 25 (5-37) U/L ALT 50 H (0-40) U/L Alkaline Phosphatase 54 (39-117) U/L Albumin 4.3 (3.5-5.0) g/dL Urine 06/02/21 Range/Units 09:05 Urine Color YELLOW Urine Appearance CLEAR Urine pH 7.0 (5.0-8.0) Ur Specific [place] 1.015 (1.005-1.025) Urine Protein NEG (NEG-TRACE) MG/DL Urine Glucose (UA) NEG (NEG) MG/DL Abdomen CT scan report/results: image reviewed CT scan - pelvis: image reviewed Assessment and Plan (1) Cholecystitis, acute with cholelithiasis: Status: Acute Plan 66-year-old male patient presenting with complaints of abdominal pain in the epigastrium and right upper quadrant since 03:00 this morning. He denies previous episodes of similar pain. On examination he is tender in the epigastrium and right upper quadrant with a positive Najera sign. CT abdomen and pelvis revealed a thickened gallbladder wall with dilated gallbladder and gallstones suggestive of acute cholecystitis due to cholelithiasis. He will be admitted to the surgical service with plans of laparoscopic cholecystectomy possibly tomorrow morning. Hospitalist consultation for medical issues. Quality Stroke Does the patient have a stroke diagnosis?: No VTE Prior VTE?: No VTE Risk Level:: Surgical - high VTE Device Contraindication: N/A - Device Ordered VTE Drug Contraindication: N/A - Med Ordered Procedures Date of Service Date of Service: 06/02/21
[2021-06-02] MEDS: Enoxaparin Sodium 40 MG/0.4 ML SYRINGE SUBCUT (10:48)
[2021-06-02] MEDS: Piperacillin Sodium/Tazobactam 3.375 GM in 0.9 % Sodium Chloride 50 ML IV ×3 (10:48→22:27)
[2021-06-02] MEDS: Lactated Ringers 1,000 ML 100 ML IVCONT ×2 (10:49→22:33)
--- NOTE | 2021-06-02 11:31 | PHA.MEDREC ---
Pharmacy Consult ? Medication Reconciliation Pharmacy has completed the medication reconciliation.
[2021-06-02 12:14] LABS: Glucose, Whole Blood 149 mg/dL (60-115)
[2021-06-02 13:37] VITALS: BP 139/88; PULSE 77; RESP 18; TEMP 37.1; O2SAT 96
[2021-06-02 14:07] LABS: COVID-19 Test Negative (Negative); IDNOW Serial# 16C4AD1C
--- NOTE | 2021-06-02 14:41 | P.CONIM_ITS ---
History of Present Illness Data of Consult Service Date: 06/02/21 Primary Care Provider: Memo Gallo PA-C HPI Reason for consult: Abdominal pain A 66 years old male with PMH of BPH, diabetes, GERD who presents to the hospital complaining of RUQ abdominal pain. The patient reports that he started to have pain a home 03:00 this morning in his right upper quadrant extending to his mid abdomen associated with nausea and vomiting. He denies any fever, chills, change in bowel habit or urinary symptoms. He reports having similar episodes of this pain previously but not to this extent. In the emergency a CT scan of the abdomen was consistent with distended gallbladder with thickened wall and gallstones. Evaluated by surgery team who admitted the patient for acute cholecystitis with plan for surgical intervention during the hospital stay. Hospitalist team asked to evaluate the patient for preop evaluation. Review of Systems Review of Systems: No fever, chills or weakness No chest pain, palpitation No shortness of breath or coughing Reporting abdominal pain associated with nausea and vomiting No urinary symptoms No any rash or wounds PMFSH Medical History Abdominal mass Allergic rhinitis BPH (benign prostatic hyperplasia) BPH loc w urin obs/LUTS Diabetes Elevated cholesterol Elevated PSA GERD (gastroesophageal reflux disease) Headache Pharyngitis Presbyopia Family History Mother No problems noted. Father No problems noted. Surgical History History of colonoscopy History of inguinal hernia repair, bilateral History of lithotripsy History of local excision of skin lesion History of parathyroidectomy History of prostate surgery Social History Housing: House Alcohol intake: never Patient Tobacco Use Status: Never used Tobacco Advance Directives: No Advance Directives Information Provided: No service: No Current occupational status: employed Meds Allergies Allergy/AdvReac Type Severity Reaction Status Date / Time aspirin [ASPIRIN] Allergy Unknown LOW Verified 05/15/21 13:42 PLATELETS finasteride Allergy Unknown lower Verified 05/15/21 13:42 extremity parasthesia Active Medications: Current Medications Acetaminophen (Acetaminophen 325 Mg Tablet) 650 mg PO Q6H PRN PRN Reason: Pain, Mild (Pain Scale 1-3) Dextrose (Dextrose 50 % 25 Gm/50 Ml Vial) 25 gm IVPUSH Q15M PRN; Protocol PRN Reason: per Hypoglycemia Standing Ord. Enoxaparin Sodium (Enoxaparin Sodium 40 Mg/0.4 Ml Syringe) 40 mg SUBCUT Q24H [facility] Last Admin: 06/02/21 10:48 Dose: 40 mg Documented by: Glucose (Glucose Gel 15 Gm Gel..Gram.) 15 gm PO Q15M PRN; Protocol PRN Reason: per Hypoglycemia Standing Ord. Hydromorphone HCl (Hydromorphone Hcl 1 Mg/Ml Syringe) 0.5 mg IVPUSH Q4H PRN; Protocol PRN Reason: Pain, Severe (Pain Scale 7-10) Lactated Ringer's (Lr) 1,000 mls @ 100 mls/hr IVCONT .Q10H [facility] Last Admin: 06/02/21 10:49 Dose: 100 mls/hr Documented by: Piperacillin Sod/Tazobactam (Sod 3.375 gm/ Sodium Chloride) 50 mls @ 100 mls/hr IV Q6H [facility] Last Infusion: 06/02/21 12:13 Dose: Infused Documented by: Insulin Human Lispro (Insulin Lispro 100 Unit/Ml 3 Ml Vial) 0 unit SUBCUT QIDACHS [facility]; Protocol Stop: 06/03/21 10:31 Last Admin: 06/02/21 12:12 Dose: Not Given Documented by: Ondansetron HCl (Ondansetron Hcl 4 Mg/2 Ml Vial) 4 mg IVPUSH Q8H PRN PRN Reason: Nausea and Vomiting Oxycodone HCl (Oxycodone Hcl Immed Release 5 Mg Tablet) 5 mg PO Q6H PRN PRN Reason: Pain, Moderate (Pain Scale 4-6 Pharmacy Consult (Consult Rx Perform Med Rec) 1 each MISCELLANE ONCE PRN PRN Reason: Consult order Sodium Chloride (0.9 % Sodium Chloride Flush 3 Ml Syringe) 3 ml IVFLUSH [facility] Zolpidem Tartrate (Zolpidem Tartrate 5 Mg Tablet) 5 mg PO BEDTIME PRN PRN Reason: Insomnia Home Medications Medication Instructions Recorded Confirmed Last Taken Type fluticasone propionate 50 1 spray INTRANASAL DAILY 02/06/21 06/02/21 06/01/21 History mcg/actuation nasal spray,suspension atorvastatin 40 mg tablet 40 mg PO BEDTIME 06/02/21 06/02/21 Unknown History Physical Exam Vital Signs and Narrative: Vital Signs: Last Vital Signs Temp 98.7 F 06/02/21 13:37 Pulse 77 06/02/21 13:37 Resp 18 06/02/21 13:37 BP 139/88 06/02/21 13:37 Pulse Ox 96 06/02/21 13:37 BMI result Body Mass Index 27.0 Const: Other: Constitutional : Alert, oriented, not in distress Neck : Normal inspection, Supple Cardiovascular : RRR, S1 S2, no lower extremity edema Respiratory : Good bilateral air entry, no crackles, wheezes or rhonchi Gastrointestinal: soft, lax, RUQ tenderness, positive Najera sign Skin : Warm, Dry Neurological : Alert & oriented x3, No focal deficit Results Labs CBC and Chem 7: 06/02/21 07:00 06/02/21 07:00 Labs: Laboratory Results - last 24 hr 06/02/21 06/02/21 06/02/21 07:00 07:00 09:05 MCV 92.2 MCH 30.4 MCHC 33.0 RDW 11.3 Plt Count 116 L MPV 11.6 Immature Gran % (Auto) 0.2 Neut % (Auto) 84.0 H Lymph % (Auto) 11.5 L [place] % (Auto) 4.0 Eos % (Auto) 0.2 Baso % (Auto) 0.1 Lymph # (Auto) 1.0 L [place] # (Auto) 0.4 Eos # (Auto) 0.0 Baso # (Auto) 0.0 Abs Immat Gran (auto) 0.02 Absolute Neuts (auto) 7.6 Absolute Nucleated RBC 0.000 Nucleated RBC % (auto) 0.0 Anion Gap 13 Estim Creat Clear Calc 62.1 Estimated GFR > 60 POC Glucose Random Glucose 174 H D Calcium 9.8 Total Bilirubin 0.5 Direct Bilirubin 0.3 AST 25 ALT 50 H Alkaline Phosphatase 54 Total Protein 7.3 Albumin 4.3 Lipase 60 Urine Color YELLOW Urine Appearance CLEAR Urine pH 7.0 Ur Specific [place] 1.015 Urine Protein NEG Urine Glucose (UA) NEG Urine Ketones NEG Urine Blood NEG Urine Nitrite NEG Ur Leukocyte Esterase NEG COVID-19 (K[facility]AR) COVID-19 Clin Com 06/02/21 06/02/21 12:08 13:39 MCV MCH MCHC RDW Plt Count MPV Immature Gran % (Auto) Neut % (Auto) Lymph % (Auto) [place] % (Auto) Eos % (Auto) Baso % (Auto) Lymph # (Auto) [place] # (Auto) Eos # (Auto) Baso # (Auto) Abs Immat Gran (auto) Absolute Neuts (auto) Absolute Nucleated RBC Nucleated RBC % (auto) Anion Gap Estim Creat Clear Calc Estimated GFR POC Glucose 149 H Random Glucose Calcium Total Bilirubin Direct Bilirubin AST ALT Alkaline Phosphatase Total Protein Albumin Lipase Urine Color Urine Appearance Urine pH Ur Specific [place] Urine Protein Urine Glucose (UA) Urine Ketones Urine Blood Urine Nitrite Ur Leukocyte Esterase COVID-19 ([facility]AR) Negative COVID-19 Clin Com See Note Imaging Radiologist's Impressions: Impressions Abdomen/Pelvis CT 06/02/21 08:23 IMPRESSION: Gallstones and probable acute cholecystitis. Largest left renal cyst. Small nonobstructing left renal stone. Slightly enlarged prostate gland. Stable left femoral intertrochanteric bone lesion. Fleischner guidelines were followed. Assessment and Plan (1) Cholecystitis, acute with cholelithiasis: Status: Acute (2) Pre-op evaluation: Status: Acute Plan A 66 years old male with PMH of BPH, diabetes, GERD who presents to the hospital complaining of RUQ abdominal pain. Preop evaluation Non emergent surgery, no ACS RCRI score of 0, low risk MACE [id number] risk for major and Fares perioperative cardiac event We can proceed to operating room, no further testing needed at this point Acute cholecystitis Treatment per surgery team Hypertension Hold lisinopril until surgery Type 2 diabetes Hold metformin SSI DVT PPX Lovenox Thank you for the consult, will continue to monitor the patient with you.
[2021-06-02 16:00] VITALS: BP 154/90; PULSE 62; RESP 16; TEMP 36.8; O2SAT 98
--- NOTE | 2021-06-02 16:06 | PC.NURSE ---
Report to Joleen in Overflow.
[2021-06-02] MEDS: Acetaminophen 325 MG TABLET 650 MG PO (16:26)
[2021-06-02] MEDS: 0.9 % Sodium Chloride Flush 3 ML SYRINGE IVFLUSH (16:28)
[2021-06-02 18:07] LABS: Glucose, Whole Blood 91 mg/dL (60-115)
[2021-06-02 20:00] VITALS: BP 157/94; PULSE 74; RESP 16; TEMP 36.1; O2SAT 99
[2021-06-02 20:47] LABS: Glucose, Whole Blood 148 mg/dL (60-115)
[2021-06-02] MEDS: HYDROmorphone HCl 1 MG/ML SYRINGE 0.5 MG IVPUSH (22:24)
[2021-06-03] VITALS (12 sets, daily range): BP systolic 112–158; BP diastolic 77–100; PULSE 67–79; RESP 16–23; TEMP 36.6–37.8; O2SAT 93–99
[2021-06-03] MEDS: 0.9 % Sodium Chloride Flush 3 ML SYRINGE IVFLUSH ×4 (01:47→20:55)
[2021-06-03] MEDS: Piperacillin Sodium/Tazobactam 3.375 GM in 0.9 % Sodium Chloride 50 ML IV ×4 (05:42→20:55)
[2021-06-03 06:26] LABS: MANUAL DIFF FLAG NO
[2021-06-03 06:48] LABS: Basophils Percent Auto 0.3 % (0-2); Eosinophils Absolute Auto 0.1 X10*3/uL (0.0-0.4); Eosinophils Percent Auto 0.7 % (0-4); Hematocrit 45.9 % (42.0-52.0); Hemoglobin 15.1 g/dl (14.0-18.0); Imm Gran Abs Auto 0.02 X10*3/uL (0.00-0.03); Imm Gran Pct Auto 0.3 % (0.0-0.4); Lymphocytes Absolute Auto 1.5 X10*3/uL (1.2-4.9); Lymphocytes Percent Auto 21.3 % (20-40); Mean Corpuscular HGB Conc 32.9 g/dl (31.0-36.0); Mean Corpuscular Hemoglobin 30.4 pg (27.0-33.0); Mean Corpuscular Volume 92.5 fL (80.0-98.0); Mean Platelet Volume 11.7 fL (9.4-12.4); Monocytes Absolute Auto 0.8 X10*3/uL (0.1-1.2); Monocytes Percent Auto 11.2 % (2-11); Neutrophils Absolute Auto 4.7 x10*3/uL (2.0-8.3); Neutrophils Percent Auto 66.2 % (45-73); Platelet Count 115 X10*3/uL (160-400); Red Blood Count 4.96 X10*6/uL (4.60-5.80); Red Cell Distribution Width 11.3 % (11.0-16.0); White Blood Count 7.1 X10*3/uL (4.8-10.8)
[2021-06-03 06:59] LABS: Anion Gap 11 (12-20); Blood Urea Nitrogen 11 mg/dL (9-16); Calcium 8.8 mg/dL (8.4-10.2); Carbon Dioxide 30 mmol/L (22-29); Chloride 102 mmol/L (96-108); Creatinine Clr Calc Pharmacy 79.5; Estimated Glomerular Filt Rate > 60; Glucose Random 127 mg/dL (60-115); Potassium 4.3 mmol/L (3.3-5.1); Sodium 139 mmol/L (135-145)
[2021-06-03 07:07] LABS: Glucose, Whole Blood 129 mg/dL (60-115)
--- NOTE | 2021-06-03 08:15 | P.PNGS_ITS ---
Subjective Subjective Date of Service: 06/03/21 Interval history: Continued abdominal pain in the right upper quadrant, no nausea or vomiting Physical Exam Vital Signs: Vital Signs: Last Vital Signs Temp 98.4 F 06/03/21 07:32 Pulse 73 06/03/21 07:20 Resp 18 06/03/21 07:20 BP 142/89 H 06/03/21 07:20 Pulse Ox 94 06/03/21 07:20 BMI result Body Mass Index 27.0 Const: General: well developed Nutritional Appearance: well nourished Orientation/consciousness: patient oriented x3 Limitations: no limitations Eyes: Sclerae: sclerae normal GI: Palpation (GI): Soft to palpation and Tenderness to palpation present (GI) in the RUQ and Najera's sign positive Percussion: Yes normal to percussion Auscultation: normal bowel sounds Rectal Exam - Male: Yes deferred Skin: General skin exam: no rashes or lesions noted Neuro: General: patient oriented x3 Extrem: General: Yes no clubbing, cyanosis or edema Objective Data Active Medications Acetaminophen (Acetaminophen 325 Mg Tablet) 650 mg PO Q6H PRN PRN Reason: Pain, Mild (Pain Scale 1-3) Last Admin: 06/02/21 16:26 Dose: 650 mg Documented by: ALPESH Dextrose (Dextrose 50 % 25 Gm/50 Ml Vial) 25 gm IVPUSH Q15M PRN; Protocol PRN Reason: per Hypoglycemia Standing Ord. Enoxaparin Sodium (Enoxaparin Sodium 40 Mg/0.4 Ml Syringe) 40 mg SUBCUT Q24H [facility] Last Admin: 06/02/21 10:48 Dose: 40 mg Documented by: KRISTINA-HENNY Glucose (Glucose Gel 15 Gm Gel..Gram.) 15 gm PO Q15M PRN; Protocol PRN Reason: per Hypoglycemia Standing Ord. Hydromorphone HCl (Hydromorphone Hcl 1 Mg/Ml Syringe) 0.5 mg IVPUSH Q4H PRN; Protocol PRN Reason: Pain, Severe (Pain Scale 7-10) Last Admin: 06/02/21 22:24 Dose: 0.5 mg Documented by: ALPESH Lactated Ringer's (Lr) 1,000 mls @ 100 mls/hr IVCONT .Q10H [facility] Last Admin: 06/03/21 07:29 Dose: Not Given Documented by: EDIS Non-Admin Reason: IV Running Piperacillin Sod/Tazobactam (Sod 3.375 gm/ Sodium Chloride) 50 mls @ 100 mls/hr IV Q6H [facility] Last Infusion: 06/03/21 06:16 Dose: 0 mls/hr Documented by: SUSANA Cefotetan Disodium 2 gm/ (Sodium Chloride) 50 mls @ 100 mls/hr IV PREOP ONE Stop: 06/03/21 08:41 Insulin Human Lispro (Insulin Lispro 100 Unit/Ml 3 Ml Vial) [facility]; Protocol Stop: 06/03/21 10:31 Last Admin: 06/03/21 07:15 Dose: Not Given Documented by: EDIS Non-Admin Reason: No Insulin Coverage Ondansetron HCl (Ondansetron Hcl 4 Mg/2 Ml Vial) 4 mg IVPUSH Q8H PRN PRN Reason: Nausea and Vomiting Oxycodone HCl (Oxycodone Hcl Immed Release 5 Mg Tablet) 5 mg PO Q6H PRN PRN Reason: Pain, Moderate (Pain Scale 4-6 Pharmacy Consult (Consult Rx Perform Med Rec) 1 each MISCELLANE ONCE PRN PRN Reason: Consult order Sodium Chloride (0.9 % Sodium Chloride Flush 3 Ml Syringe) 3 ml IVFLUSH [facility] Last Admin: 06/03/21 07:26 Dose: 3 ml Documented by: EDIS Zolpidem Tartrate (Zolpidem Tartrate 5 Mg Tablet) 5 mg PO BEDTIME PRN PRN Reason: Insomnia Labs CBC & Chem 7: 06/03/21 06:13 06/03/21 06:13 Labs: Laboratory Results - last 24 hr 06/02/21 06/02/21 06/02/21 09:05 12:08 13:39 MCV MCH MCHC RDW Plt Count MPV Immature Gran % (Auto) Neut % (Auto) Lymph % (Auto) [place] % (Auto) Eos % (Auto) Baso % (Auto) Lymph # (Auto) [place] # (Auto) Eos # (Auto) Baso # (Auto) Abs Immat Gran (auto) Absolute Neuts (auto) Absolute Nucleated RBC Nucleated RBC % (auto) Anion Gap Estim Creat Clear Calc Estimated GFR POC Glucose 149 H Random Glucose Calcium Urine Color YELLOW Urine Appearance CLEAR Urine pH 7.0 Ur Specific [place] 1.015 Urine Protein NEG Urine Glucose (UA) NEG Urine Ketones NEG Urine Blood NEG Urine Nitrite NEG Ur Leukocyte Esterase NEG COVID-19 ([facility]AR) Negative COVID-19 [facility] [facility] See Note 06/02/21 06/02/21 06/03/21 18:04 20:39 06:13 MCV 92.5 MCH 30.4 MCHC 32.9 RDW 11.3 Plt Count 115 L MPV 11.7 Immature Gran % (Auto) 0.3 Neut % (Auto) 66.2 Lymph % (Auto) 21.3 [place] % (Auto) 11.2 H Eos % (Auto) 0.7 Baso % (Auto) 0.3 Lymph # (Auto) 1.5 [place] # (Auto) 0.8 Eos # (Auto) 0.1 Baso # (Auto) 0.0 Abs Immat Gran (auto) 0.02 Absolute Neuts (auto) 4.7 Absolute Nucleated RBC 0.000 Nucleated RBC % (auto) 0.0 Anion Gap Estim Creat Clear Calc Estimated GFR POC Glucose 91 148 H Random Glucose Calcium Urine Color Urine Appearance Urine pH Ur Specific [place] Urine Protein Urine Glucose (UA) Urine Ketones Urine Blood Urine Nitrite Ur Leukocyte Esterase COVID-19 ([facility]) COVID-[place] 06/03/21 06/03/21 06:13 07:02 MCV MCH MCHC RDW Plt Count MPV Immature Gran % (Auto) Neut % (Auto) Lymph % (Auto) [place] % (Auto) Eos % (Auto) Baso % (Auto) Lymph # (Auto) [place] # (Auto) Eos # (Auto) Baso # (Auto) Abs Immat Gran (auto) Absolute Neuts (auto) Absolute Nucleated RBC Nucleated RBC % (auto) Anion Gap 11 L Estim Creat Clear Calc 79.5 Estimated GFR > 60 POC Glucose 129 H Random Glucose 127 H Calcium 8.8 D Urine Color Urine Appearance Urine pH Ur Specific [place] Urine Protein Urine Glucose (UA) Urine Ketones Urine Blood Urine Nitrite Ur Leukocyte Esterase COVID-19 ([facility]UMAR) COVID-19 [facility] Procedures Date of Service Date of Service: 06/03/21 Progress Note: A&P Assessment and plan (1) Cholecystitis, acute with cholelithiasis: Status: Acute Plan Patient presents with complaints of abdominal pain in the right upper quadrant found to have gallstones and wall thickening consistent with acute cholecystitis. I recommended a laparoscopic or possible open cholecystectomy and after a discussion of the risks, alternatives and risks, consents to the p rocedure. He will be added on to the OR schedule for today. Fall Risk Details Current Medications: Current Medications Acetaminophen (Acetaminophen 325 Mg Tablet) 650 mg PO Q6H PRN PRN Reason: Pain, Mild (Pain Scale 1-3) Last Admin: 06/02/21 16:26 Dose: 650 mg Documented by: Dextrose (Dextrose 50 % 25 Gm/50 Ml Vial) 25 gm IVPUSH Q15M PRN; Protocol PRN Reason: per Hypoglycemia Standing Ord. Enoxaparin Sodium (Enoxaparin Sodium 40 Mg/0.4 Ml Syringe) 40 mg SUBCUT Q24H [facility] Last Admin: 06/02/21 10:48 Dose: 40 mg Documented by: Glucose (Glucose Gel 15 Gm Gel..Gram.) 15 gm PO Q15M PRN; Protocol PRN Reason: per Hypoglycemia Standing Ord. Hydromorphone HCl (Hydromorphone Hcl 1 Mg/Ml Syringe) 0.5 mg IVPUSH Q4H PRN; Protocol PRN Reason: Pain, Severe (Pain Scale 7-10) Last Admin: 06/02/21 22:24 Dose: 0.5 mg Documented by: Lactated Ringer's (Lr) 1,000 mls @ 100 mls/hr IVCONT .Q10H [facility] Last Admin: 06/03/21 07:29 Dose: Not Given Documented by: Piperacillin Sod/Tazobactam (Sod 3.375 gm/ Sodium Chloride) 50 mls @ 100 mls/hr IV Q6H [facility] Last Infusion: 06/03/21 06:16 Dose: Infused Documented by: Cefotetan Disodium 2 gm/ (Sodium Chloride) 50 mls @ 100 mls/hr IV PREOP ONE Stop: 06/03/21 08:41 Insulin Human Lispro (Insulin Lispro 100 Unit/Ml 3 Ml Vial) 0 unit SUBCUT QIDACHS [facility]; Protocol Stop: 06/03/21 10:31 Last Admin: 06/03/21 07:15 Dose: Not Given Documented by: Ondansetron HCl (Ondansetron Hcl 4 Mg/2 Ml Vial) 4 mg IVPUSH Q8H PRN PRN Reason: Nausea and Vomiting Oxycodone HCl (Oxycodone Hcl Immed Release 5 Mg Tablet) 5 mg PO Q6H PRN PRN Reason: Pain, Moderate (Pain Scale 4-6 Pharmacy Consult (Consult Rx Perform Med Rec) 1 each MISCELLANE ONCE PRN PRN Reason: Consult order Sodium Chloride (0.9 % Sodium Chloride Flush 3 Ml [facility]ringe) [facility] Last Admin: 06/03/21 07:26 Dose: 3 ml Documented by: Zolpidem Tartrate (Zolpidem Tartrate 5 Mg Tablet) 5 mg PO BEDTIME PRN PRN Reason: Insomnia Time Spent With Patient Time: Total time spent is greater than 50% in coordination of care (as documented) at patient's floor/unit and/or counseling patient: Quality Stroke Does the patient have a stroke diagnosis?: No VTE Prior VTE?: No VTE Risk Level:: Surgical - high VTE Device Contraindication: N/A - Device Ordered VTE Drug Contraindication: N/A - Med Ordered
[2021-06-03] MEDS: Acetaminophen 325 MG TABLET 650 MG PO (09:14)
[2021-06-03] MEDS: Lactated Ringers 1,000 ML 100 ML IVCONT ×2 (11:27→17:02)
[2021-06-03 12:30] LABS: Glucose, Whole Blood 103 mg/dL (60-115)
--- NOTE | 2021-06-03 14:07 | P.CONAN_ITS ---
[facility] Active Problems Active Problems: All Active Problems (Updated 06/02/21 @ 14:45 by Gopi Stevenson MD) Cholecystitis, acute with cholelithiasis (Acute) Pre-op evaluation (Acute) Gallstone (Acute) Cholecystitis (Acute) Left renal mass (Acute) Colitis (Acute) Peyronie's disease (Acute) Pharyngitis (Acute) Adult general medical exam (Acute) Sleep disorder (Acute) Excessive daytime sleepiness (Acute) Hyperlipidemia (Acute) GERD (gastroesophageal reflux disease) (Acute) VIRA (obstructive sleep apnea) (Acute) Insomnia (Acute) HTN (hypertension) (Acute) Diabetes (Acute) Erectile dysfunction (Acute) BPH loc w urin obs/LUTS (Acute) Past Medical History Medical History Abdominal mass Allergic rhinitis BPH (benign prostatic hyperplasia) BPH loc w urin obs/LUTS Diabetes Elevated cholesterol Elevated PSA GERD (gastroesophageal reflux disease) Headache Pharyngitis Presbyopia Family History Family History Mother No problems noted. Father No problems noted. Family history of problems with anesthesia: No Surgical History Surgical History History of colonoscopy History of inguinal hernia repair, bilateral History of lithotripsy History of local excision of skin lesion History of parathyroidectomy History of prostate surgery History of Problems with Anesthesia: No Social History Social History Housing: House Alcohol intake: never Patient Tobacco Use Status: Never used Tobacco service: No Current occupational status: employed Meds Allergies Allergy/AdvReac Type Severity Reaction Status Date / Time aspirin [ASPIRIN] Allergy Unknown LOW Verified 05/15/21 13:42 PLATELETS finasteride Allergy Unknown lower Verified 05/15/21 13:42 extremity parasthesia Active Medications: Current Medications Acetaminophen (Acetaminophen 325 Mg Tablet) 650 mg PO Q6H PRN PRN Reason: Pain, Mild (Pain Scale 1-3) Last Admin: 06/03/21 09:14 Dose: 650 mg Documented by: Dextrose (Dextrose 50 % 25 Gm/50 Ml Vial) 25 gm IVPUSH Q15M PRN; Protocol PRN Reason: per Hypoglycemia Standing Ord. Enoxaparin Sodium (Enoxaparin Sodium 40 Mg/0.4 Ml Syringe) 40 mg SUBCUT Q24H [facility] Last Admin: 06/03/21 11:38 Dose: Not Given Documented by: Glucose (Glucose Gel 15 Gm Gel..Gram.) 15 gm PO Q15M PRN; Protocol PRN Reason: per Hypoglycemia Standing Ord. Hydromorphone HCl (Hydromorphone Hcl 1 Mg/Ml Syringe) 0.5 mg IVPUSH Q4H PRN; Protocol PRN Reason: Pain, Severe (Pain Scale 7-10) Last Admin: 06/02/21 22:24 Dose: 0.5 mg Documented by: Lactated Ringer's (Lr) 1,000 mls @ 100 mls/hr IVCONT .Q10H [facility] Last Admin: 06/03/21 11:27 Dose: 100 mls/hr Documented by: Piperacillin Sod/Tazobactam (Sod 3.375 gm/ Sodium Chloride) 50 mls @ 100 mls/hr IV Q6H [facility] Last Infusion: 06/03/21 11:35 Dose: Infused Documented by: Ondansetron HCl (Ondansetron Hcl 4 Mg/2 Ml Vial) 4 mg IVPUSH Q8H PRN PRN Reason: Nausea and Vomiting Oxycodone HCl (Oxycodone Hcl Immed Release 5 Mg Tablet) 5 mg PO Q6H PRN PRN Reason: Pain, Moderate (Pain Scale 4-6 Pharmacy Consult (Consult Rx Perform Med Rec) 1 each MISCELLANE ONCE PRN PRN Reason: Consult order Sodium Chloride (0.9 % Sodium Chloride Flush 3 Ml Syringe) 3 ml IVFLUSH QSHIFT [facility] Last Admin: 06/03/21 07:26 Dose: 3 ml Documented by: Zolpidem Tartrate (Zolpidem Tartrate 5 Mg Tablet) 5 mg PO BEDTIME PRN PRN Reason: Insomnia Home Medications Medication Instructions Recorded Confirmed Last Taken Type fluticasone propionate 50 1 spray INTRANASAL DAILY 02/06/21 06/02/21 06/01/21 History mcg/actuation nasal spray,suspension atorvastatin 40 mg tablet 40 mg PO BEDTIME 06/02/21 06/02/21 Unknown History Exam Exam Date and Time: June 03, 2021 1407 Height,Weight and Vital Signs: Height 5 ft 8 in Weight 80.739 kg Last Vital Signs Temp 97.9 F 06/03/21 13:37 Pulse 67 06/03/21 13:37 Resp 19 06/03/21 13:37 BP 146/82 H 06/03/21 13:37 Pulse Ox 97 06/03/21 13:37 Pertinent Lab Results Pertinent Lab Results: Laboratory Tests 06/02/21 06/02/21 06/02/21 07:00 07:00 09:05 WBC 9.0 RBC 5.03 Hgb 15.3 Hct 46.4 MCV 92.2 MCH 30.4 MCHC 33.0 RDW 11.3 Plt Count 116 L MPV 11.6 Immature Gran % (Auto) 0.2 Neut % (Auto) 84.0 H Lymph % (Auto) 11.5 L [place] % (Auto) 4.0 Eos % (Auto) 0.2 Baso % (Auto) 0.1 Lymph # (Auto) 1.0 L [place] # (Auto) 0.4 Eos # (Auto) 0.0 Baso # (Auto) 0.0 Abs Immat Gran (auto) 0.02 Absolute Neuts (auto) 7.6 Absolute Nucleated RBC 0.000 Nucleated RBC % (auto) 0.0 Sodium 139 Potassium 5.3 H Chloride 101 Carbon Dioxide 30 H Anion Gap 13 BUN 20 H D Creatinine 1.10 Estim Creat Clear Calc 62.1 Estimated GFR > 60 POC Glucose Random Glucose 174 H D Calcium 9.8 Total Bilirubin 0.5 Direct Bilirubin 0.3 AST 25 ALT 50 H Alkaline Phosphatase 54 Total Protein 7.3 Albumin 4.3 Lipase 60 Urine Color YELLOW Urine Appearance CLEAR Urine pH 7.0 Ur Specific [place] 1.015 Urine Protein NEG Urine Glucose (UA) NEG Urine Ketones NEG Urine Blood NEG Urine Nitrite NEG Ur Leukocyte Esterase NEG COVID-19 ([facility]) COVID-19 Clin Com 06/02/21 06/02/21 06/02/21 12:08 13:39 18:04 WBC RBC Hgb Hct MCV MCH MCHC RDW Plt Count MPV Immature Gran % (Auto) Neut % (Auto) Lymph % (Auto) [place] % (Auto) Eos % (Auto) Baso % (Auto) Lymph # (Auto) [place] # (Auto) Eos # (Auto) Baso # (Auto) Abs Immat Gran (auto) Absolute Neuts (auto) Absolute Nucleated RBC Nucleated RBC % (auto) Sodium Potassium Chloride Carbon Dioxide Anion Gap BUN Creatinine Estim Creat Clear Calc Estimated GFR POC Glucose 149 H 91 Random Glucose Calcium Total Bilirubin Direct Bilirubin AST ALT Alkaline Phosphatase Total Protein Albumin Lipase Urine Color Urine Appearance Urine pH Ur Specific [place] Urine Protein Urine Glucose (UA) Urine Ketones Urine Blood Urine Nitrite Ur Leukocyte Esterase COVID-19 ([facility]) Negative COVID-19 Clin Com See Note 06/02/21 06/03/21 06/03/21 20:39 06:13 06:13 WBC 7.1 RBC 4.96 Hgb 15.1 Hct 45.9 MCV 92.5 MCH 30.4 MCHC 32.9 RDW 11.3 Plt Count 115 L MPV 11.7 Immature Gran % (Auto) 0.3 Neut % (Auto) 66.2 Lymph % (Auto) 21.3 [place] % (Auto) 11.2 H Eos % (Auto) 0.7 Baso % (Auto) 0.3 Lymph # (Auto) 1.5 [place] # (Auto) 0.8 Eos # (Auto) 0.1 Baso # (Auto) 0.0 Abs Immat Gran (auto) 0.02 Absolute Neuts (auto) 4.7 Absolute Nucleated RBC 0.000 Nucleated RBC % (auto) 0.0 Sodium 139 Potassium 4.3 Chloride 102 Carbon Dioxide 30 H Anion Gap 11 L BUN 11 Creatinine 0.86 Estim Creat Clear Calc 79.5 Estimated GFR > 60 POC Glucose 148 H Random Glucose 127 H Calcium 8.8 D Total Bilirubin Direct Bilirubin AST ALT Alkaline Phosphatase Total Protein Albumin Lipase Urine Color Urine Appearance Urine pH Ur Specific [place] Urine Protein Urine Glucose (UA) Urine Ketones Urine Blood Urine Nitrite Ur Leukocyte Esterase COVID-19 ([facility]) COVID-19 Clin Com 06/03/21 06/03/21 07:02 12:26 WBC RBC Hgb Hct MCV MCH MCHC RDW Plt Count MPV Immature Gran % (Auto) Neut % (Auto) Lymph % (Auto) [place] % (Auto) Eos % (Auto) Baso % (Auto) Lymph # (Auto) [place] # (Auto) Eos # (Auto) Baso # (Auto) Abs Immat Gran (auto) Absolute Neuts (auto) Absolute Nucleated RBC Nucleated RBC % (auto) Sodium Potassium Chloride Carbon Dioxide Anion Gap BUN Creatinine Estim Creat Clear Calc Estimated GFR POC Glucose 129 H 103 Random Glucose Calcium Total Bilirubin Direct Bilirubin AST ALT Alkaline Phosphatase Total Protein Albumin Lipase Urine Color Urine Appearance Urine pH Ur Specific [place] Urine Protein Urine Glucose (UA) Urine Ketones Urine Blood Urine Nitrite Ur Leukocyte Esterase COVID-19 ([facility]) COVID-19 Clin Com Assessment and Plan Assessment Anesthesia Assessment: Anesthesia Plan Discussed and Chart Reviewed Final Anesthetic Review Family History of Problems with Anesthesia: No History of Problems with Anesthesia: No NPO: Yes ASA Class: III and Emergency Final Preanesthetic Review: No Changes in Pt Med Stat, Meds/Allgs Chart Reviewed, Consent Obtained/Reviewed and Anes Risks/Benef Reviewed Patient Risk: Intermediate Procedure Risk: Intermediate Anesthetic Plan Anesthetic Plan: GA Disposition: Standard PACU
--- NOTE | 2021-06-03 15:40 | P.OP_ITS ---
Operative Note Operative Note Date of Service: 06/03/21 Narrative: Preoperative diagnosis: Acute cholecystitis, cholelithiasis Postoperative diagnosis: Same Procedure: Laparoscopic cholecystectomy Surgeon: Kobe Wiley MD Manuscripts Archivist: SHIVAM Grimaldo Anesthesia: General endotracheal Indications for procedure: 66-year-old male patient presenting with complaints of abdominal pain in the right upper quadrant epigastrium found to have gallstones within the gallbladder with thickened gallbladder wall suggestive of acute cholecystitis. Operative findings: Acute cholecystitis with edematous gallbladder wall and distended gallbladder. Specimen: gallbladder Estimated blood loss: 2 mL Complications: None Procedure details: Patient was brought to the OR and placed in a supine position. After administering general anesthesia the patient's abdomen was prepped with ChloraPrep and draped in a sterile fashion. Local anesthesia consisting of 0.5% Sensorcaine without epinephrine was infiltrated in a periumbilical region. A 5 mm incision was made above the umbilicus in a transverse fashion. The Veress needle was then inserted while elevating abdominal cavity with towel clips. After positive drop test the abdomen was insufflated to a pressure of 15 mm of mercury. The Veress needle was then removed and a 5 mm trocar inserted. The camera was inserted in the abdomen explored. A 12 mm trocar was then placed in the epigastrium and two 5 mm trocars placed in the right upper quadrant. The patient was placed in reverse Trendelenburg positioning and rotated to the left. The gallbladder was grasped with the fundus and retracted cephalad.. The infundibulum was then grasped and retracted away from the liver bed. The Dolphin dissected was then used to dissect the peritoneum off the infundibulum to reveal the junction with the cystic duct. Cystic artery was noted slightly medial and posterior to the cystic duct. After obtaining a critical view the cystic duct was doubly clipped and divided. The cystic artery was then doubly clipped and divided. The gallbladder was then dissected off the liver bed using electrocautery with an L hook. Hemostasis was assured all times using the electrocautery. When the gallbladder is completely dissected off the liver bed was placed in an Endo- Catch bag and brought out through the epigastric incision. The gallbladder was sent to pathology for further examination. The abdomen was then re-examined. The liver bed was irrigated and suctioned dry. No bleeding or bile leak could be identified. CO2 was then evacuated and all trocars removed. Fascia was closed at the epigastric incision using a [id number] 0 Polysorb suture. Skin was closed in all incisions using a subcuticular 4 0 Polysorb suture. Sterile dressings consisting of Steri-Strips, 2 x 2 gauze, and Tegaderm were then applied. The patient tolerated the procedure well. Sponge instrument and needle counts reported as correct. The patient was transferred to PACU in stable condition.
[2021-06-03] MEDS: fentaNYL citrate/PF 100 MCG/2 ML VIAL 50 MCG IVPUSH (15:52)
[2021-06-03 16:37] LABS: Glucose, Whole Blood 124 mg/dL (60-115)
[2021-06-03 19:49] LABS: Glucose, Whole Blood 264 mg/dL (60-115)
[2021-06-03] MEDS: Atorvastatin Calcium 40 MG TABLET PO (20:55)
[2021-06-03] MEDS: HYDROmorphone HCl 1 MG/ML SYRINGE 0.5 MG IVPUSH (20:59)
[2021-06-04] VITALS: BP 134/85; PULSE 76; RESP 18; TEMP 36.5; O2SAT 97
[2021-06-04] MEDS: oxyCODONE HCl Immed Release 5 MG TABLET PO (00:21)
[2021-06-04] MEDS: Acetaminophen 325 MG TABLET 650 MG PO (00:21)
[2021-06-04] MEDS: Piperacillin Sodium/Tazobactam 3.375 GM in 0.9 % Sodium Chloride 50 ML IV ×2 (03:23→09:04)
[2021-06-04] MEDS: Lactated Ringers 1,000 ML 100 ML IVCONT (03:23)
[2021-06-04 03:33] VITALS: BP 109/70; PULSE 69; RESP 18; TEMP 36.2; O2SAT 97
[2021-06-04 07:28] VITALS: BP 144/82; PULSE 73; RESP 18; TEMP 36.3; O2SAT 98
[2021-06-04 07:47] LABS: Glucose, Whole Blood 128 mg/dL (60-115)
[2021-06-04] MEDS: 0.9 % Sodium Chloride Flush 3 ML SYRINGE IVFLUSH (09:04)
[2021-06-04] MEDS: Loratadine 10 MG TABLET PO (09:04)
[2021-06-04] MEDS: Omeprazole 20 MG CAPSULE.DR PO (09:04)
[2021-06-04] MEDS: lisinopriL 20 MG TABLET PO (09:05)
--- NOTE | 2021-06-04 09:59 | HO.POSTANES ---
Post Anesthesia Evaluation Post Anesthesia Evaluation Vital Signs: Vital Signs Temp Pulse Resp BP Pulse Ox 06/04/21 07:28 97.4 F 73 18 144/82 H 98 06/04/21 03:33 97.1 F 69 18 109/70 97 06/04/21 00:00 97.7 F 76 18 134/85 97 Anesthesia: General Endotracheal-GETA Mental Status: Awake Pain Control: Satisfactory Nausea/Vomiting: None Hydration: Adequate Anesthesia-Related Issues: No Anes. Related Issues
--- NOTE | 2021-06-04 11:27 | P.PNGS_ITS ---
Subjective Subjective Date of Service: 06/04/21 Interval history: Just received pain meds. Tired and sleepy now. He is comfortable. Tolerating solid diet. Has not been OOB. Physical Exam Vital Signs: Vital Signs: Last Vital Signs Temp 97.4 F 06/04/21 07:28 Pulse 73 06/04/21 07:28 Resp 18 06/04/21 07:28 BP 144/82 H 06/04/21 07:28 Pulse Ox 98 06/04/21 07:28 BMI result Body Mass Index 27.0 Const: General: comfortable, no acute distress and alert Orientation/consciousness: patient oriented x3 Resp: Effort & Inspection: normal respiratory effort GI: Inspection: No distended and Yes incision (dressings c/d/i) Palpation (GI): Tenderness to palpation present (GI) (mild, incisional), no guarding and not rigid Percussion: Yes tympanic to percussion Skin: General skin exam: no rashes or lesions noted Neuro: General: patient oriented x3 Extrem: General: Yes no clubbing, cyanosis or edema Objective Data Active Medications Acetaminophen (Acetaminophen 325 Mg Tablet) 650 mg PO Q6H PRN PRN Reason: Pain, Mild (Pain Scale 1-3) Last Admin: 06/04/21 00:21 Dose: 650 mg Documented by: KIA Atorvastatin Calcium (Atorvastatin Calcium 40 Mg Tablet) 40 mg PO BEDTIME [facility] Last Admin: 06/03/21 20:55 Dose: 40 mg Documented by: KIA Dextrose (Dextrose 50 % 25 Gm/50 Ml Vial) 25 gm IVPUSH Q15M PRN; Protocol PRN Reason: per Hypoglycemia Standing Ord. Dextrose (Dextrose 50 % 25 Gm/50 Ml Vial) 25 gm IVPUSH Q15M PRN; Protocol PRN Reason: per Hypoglycemia Standing Ord. Enoxaparin Sodium (Enoxaparin Sodium 40 Mg/0.4 Ml Syringe) 40 mg SUBCUT Q24H [facility] Last Admin: 06/03/21 11:38 Dose: Not Given Documented by: EDIS Non-Admin Reason: See Note Comments: surgery today Fluticasone Propionate (Fluticasone Propionate Nasal 16 Gm [place]) 1 spray NOSTRIL-B DAILY [facility] Last Admin: 06/04/21 09:19 Dose: Not Given Documented by: MIMI Non-Admin Reason: Patient Refused Glucose (Glucose Gel 15 Gm Gel..Gram.) 15 gm PO Q15M PRN; Protocol PRN Reason: per Hypoglycemia Standing Ord. Hydromorphone HCl (Hydromorphone Hcl 1 Mg/Ml Syringe) 0.5 mg IVPUSH Q4H PRN; Protocol PRN Reason: Pain, Severe (Pain Scale 7-10) Last Admin: 06/03/21 20:59 Dose: 0.5 mg Documented by: KIA Lactated Ringer's (Lr) 1,000 mls @ 100 mls/hr IVCONT .Q10H [facility] Last Admin: 06/04/21 03:23 Dose: 100 mls/hr Documented by: KIA Piperacillin Sod/Tazobactam (Sod 3.375 gm/ Sodium Chloride) 50 mls @ 100 mls/hr IV Q6H [facility] Last Infusion: 06/04/21 09:39 Dose: 0 mls/hr Documented by: MIMI Insulin Human Lispro (Insulin Lispro 100 Unit/Ml 3 Ml Vial) 0 unit SUBCUT QIDACHS [facility]; Protocol Lisinopril (Lisinopril 20 Mg Tablet) 20 mg PO DAILY [facility]; Protocol Last Admin: 06/04/21 09:05 Dose: 20 mg Documented by: MIMI Loratadine (Loratadine 10 Mg Tablet) 10 mg PO DAILY [facility] Last Admin: 06/04/21 09:04 Dose: 10 mg Documented by: MIMI Omeprazole (Omeprazole 20 Mg Capsule.Dr) 20 mg PO DAILY [facility] Last Admin: 06/04/21 09:04 Dose: 20 mg Documented by: MIMI Ondansetron HCl (Ondansetron Hcl 4 Mg/2 Ml Vial) 4 mg IVPUSH Q8H PRN PRN Reason: Nausea and Vomiting Oxycodone HCl (Oxycodone Hcl Immed Release 5 Mg Tablet) 5 mg PO Q6H PRN PRN Reason: Pain, Moderate (Pain Scale 4-6 Last Admin: 06/04/21 00:21 Dose: 5 mg Documented by: KIA Pharmacy Consult (Consult Rx Perform Med Rec) 1 each MISCELLANE ONCE PRN PRN Reason: Consult order Sodium Chloride (0.9 % Sodium Chloride Flush 3 Ml Syringe) 3 ml IVFLUSH QSHIFT [facility] Last Admin: 06/04/21 09:04 Dose: 3 ml Documented by: MIMI Zolpidem Tartrate (Zolpidem Tartrate 5 Mg Tablet) 5 mg PO BEDTIME PRN PRN Reason: Insomnia Labs CBC & Chem 7: 06/03/21 06:13 06/03/21 06:13 Labs: Laboratory Results - last 24 hr 06/03/21 06/03/21 06/03/21 12:26 16:32 19:45 POC Glucose 103 124 H 264 H 06/04/21 07:36 POC Glucose 128 H Procedures Date of Service Date of Service: 06/04/21 Progress Note: A&P Assessment and plan (1) Cholecystitis, acute with cholelithiasis: Status: Acute (2) S/P laparoscopic cholecystectomy: Status: Acute Plan 66 year old male admitted with acute cholecystitis nowPOD #1 s/p lap CCY. Doing well post op- comfortable, tolerating diet. VSS. Abd exam benign with intact dressings, appropriate post op tenderness. Encouraged OOB/ambulation of halls this morning. If able to ambulate without difficulty, stable for discharge to home today. Patient comfortable with plan. Fall Risk Details Current Medications: Current Medications Acetaminophen (Acetaminophen 325 Mg Tablet) 650 mg PO Q6H PRN PRN Reason: Pain, Mild (Pain Scale 1-3) Last Admin: 06/04/21 00:21 Dose: 650 mg Documented by: Atorvastatin Calcium (Atorvastatin Calcium 40 Mg Tablet) 40 mg PO BEDTIME [facility] Last Admin: 06/03/21 20:55 Dose: 40 mg Documented by: Dextrose (Dextrose 50 % 25 Gm/50 Ml Vial) 25 gm IVPUSH Q15M PRN; Protocol PRN Reason: per Hypoglycemia Standing Ord. Dextrose (Dextrose 50 % 25 Gm/50 Ml Vial) 25 gm IVPUSH Q15M PRN; Protocol PRN Reason: per Hypoglycemia Standing Ord. Enoxaparin Sodium (Enoxaparin Sodium 40 Mg/0.4 Ml Syringe) 40 mg SUBCUT Q24H [facility] Last Admin: 06/03/21 11:38 Dose: Not Given Documented by: Fluticasone Propionate (Fluticasone Propionate Nasal 16 Gm [place]) 1 spray NOSTRIL-B DAILY [facility] Last Admin: 06/04/21 09:19 Dose: Not Given Documented by: Glucose (Glucose Gel 15 Gm Gel..Gram.) 15 gm PO Q15M PRN; Protocol PRN Reason: per Hypoglycemia Standing Ord. Hydromorphone HCl (Hydromorphone Hcl 1 Mg/Ml Syringe) 0.5 mg IVPUSH Q4H PRN; Protocol PRN Reason: Pain, Severe (Pain Scale 7-10) Last Admin: 06/03/21 20:59 Dose: 0.5 mg Documented by: Lactated Ringer's (Lr) 1,000 mls @ 100 mls/hr IVCONT .Q10H [facility] Last Admin: 06/04/21 03:23 Dose: 100 mls/hr Documented by: Piperacillin Sod/Tazobactam (Sod 3.375 gm/ Sodium Chloride) 50 mls @ 100 mls/hr IV Q6H [facility] Last Infusion: 06/04/21 09:39 Dose: Infused Documented by: Insulin Human Lispro (Insulin Lispro 100 Unit/Ml 3 Ml Vial) 0 unit SUBCUT QIDACHS [facility]; Protocol Lisinopril (Lisinopril 20 Mg Tablet) 20 mg PO DAILY [facility]; Protocol Last Admin: 06/04/21 09:05 Dose: 20 mg Documented by: Loratadine (Loratadine 10 Mg Tablet) 10 mg PO DAILY [facility] Last Admin: 06/04/21 09:04 Dose: 10 mg Documented by: Omeprazole (Omeprazole 20 Mg Capsule.Dr) 20 mg PO DAILY [facility] Last Admin: 06/04/21 09:04 Dose: 20 mg Documented by: Ondansetron HCl (Ondansetron Hcl 4 Mg/2 Ml Vial) 4 mg IVPUSH Q8H PRN PRN Reason: Nausea and Vomiting Oxycodone HCl (Oxycodone Hcl Immed Release 5 Mg Tablet) 5 mg PO Q6H PRN PRN Reason: Pain, Moderate (Pain Scale 4-6 Last Admin: 06/04/21 00:21 Dose: 5 mg Documented by: Pharmacy Consult (Consult Rx Perform Med Rec) 1 each MISCELLANE ONCE PRN PRN Reason: Consult order Sodium Chloride (0.9 % Sodium Chloride Flush 3 Ml Syringe) 3 ml IVFLUSH QSHIFT [facility] Last Admin: 06/04/21 09:04 Dose: 3 ml Documented by: Zolpidem Tartrate (Zolpidem Tartrate 5 Mg Tablet) 5 mg PO BEDTIME PRN PRN Reason: Insomnia Time Spent With Patient Time: Total time spent is greater than 50% in coordination of care (as documented) at patient's floor/unit and/or counseling patient: Quality Stroke Does the patient have a stroke diagnosis?: No VTE Prior VTE?: No VTE Risk Level:: Surgical - high VTE Device Contraindication: N/A - Device Ordered VTE Drug Contraindication: N/A - Med Ordered
[2021-06-04 11:28] VITALS: BP 140/78; PULSE 71; RESP 18; TEMP 37; O2SAT 96
[2021-06-04 11:39] LABS: Glucose, Whole Blood 170 mg/dL (60-115)
[2021-06-04] MEDS: Insulin Lispro 100 UNIT/ML 3 ML VIAL SUBCUT (11:49)
--- NOTE | 2021-06-04 13:33 | PM.DS ---
DS: Providers Provider Date of Service: 06/04/21 Date of admission: 06/02/21 10:28 Primary care physician: Memo Gallo PA-C Attending physician on admission: Kobe Wiley Consults: 06/02/21 10:27 Consult to Hospitalist Routine Consulting Provider: Hospitalist Reason For Exam: Diabetic, acute cholecystitis, preop evaluation Attending physician on discharge: Kobe Wiley DS: Diagnosis Discharge Diagnosis (1) Cholecystitis, acute with cholelithiasis: Status: Acute (2) S/P laparoscopic cholecystectomy: Status: Acute DS: Summary Hospital Course Hospital Course: BRIEF HPI: Olivier Valentine is a 66 year old male with history of diabetes, hyperlipidemia, hypertension, and GERD, presenting with complaints of abdominal pain in the upper abdomen found to have acute cholecystitis. His pain began at 03:00 this morning he was localized in the upper abdomen extending down to a periumbilical region mainly on the right side. The pain was associated with nausea and vomiting without fever or chills. He denies a previous history of similar pain in the past. He reports shortness of breath associated with the abdominal pain. He was subsequently brought to the emergency department by ambulance. In the ED was noted to be tender in the right upper quadrant with a positive Najera sign. Laboratories revealed a normal WBC. CT of the abdomen and pelvis however revealed a distended gallbladder with thickened gallbladder wall and gallstones within the gallbladder. Findings were suggestive of acute cholecystitis. HOSPITAL COURSE: He was admitted to the surgical service with plans of laparoscopic cholecystectomy possible open. He was added on for the following morning. Hospitalist consultation was obtained for medical issues. On 06/04/21, a laparoscopic cholecystectomy was performed by Dr. Wiley without complication. The patient tolerated the procedure well and was admitted following for observation. The patient had an uncomplicated recovery course. On POD #1, he felt well. He was tolerating a solid diet. His pain was well controlled. His abdomen was benign with appropriate post op tenderness with intact dressings. He was ambulated. He was reassessed later in the day and felt ready for discharge to home. He was discharged to home on 06/04/21 in stable condition. Status at Discharge Functional status at discharge: independent ambulation Overall status at discharge: patient is progressing back to baseline Time Spent with Patient Time attestation: Total time spent providing and/or coordinating discharge services: Discharge coordination time: Greater than 30 minutes Quality: Stroke Does the patient have a stroke diagnosis?: No Physical Exam Vital Signs: Vital Signs: Last Vital Signs Temp 98.6 F 06/04/21 11:28 Pulse 71 06/04/21 11:28 Resp 18 06/04/21 11:28 BP 140/78 H 06/04/21 11:28 Pulse Ox 96 06/04/21 11:28 BMI result Body Mass Index 27.0 Const: Orientation/consciousness: patient oriented x3 Eyes: Sclerae: sclerae normal Resp: Effort & Inspection: normal respiratory effort GI: Inspection: Yes distended and Yes incision (intact) Palpation (GI): Soft to palpation, Tenderness to palpation present (GI) (mild, incisional), no guarding and not rigid Percussion: Yes normal to percussion Skin: General skin exam: no rashes or lesions noted Neuro: General: patient oriented x3 Extrem: General: Yes no clubbing, cyanosis or edema DS: Data Data Completed and Pending Completed studies during hospitalization [Text1]: 06/03/21 15:04 Surgical [PTH] Routine Gallbladder, cholecystectomy: -Acute on chronic cholecystitis with focal mucosal necrosis. -Cholelithiasis. Discharge Plan Discharge Patient Disposition: Home, Self-Care Discharge Diagnosis: Acute cholecystitis, cholelithiasis Referrals: Memo Gallo PA-C [Primary Care Provider] - 1 Week Kobe Wiley MD [Physician] - 2 Weeks Discharge Medications: New oxycodone 5 mg tablet 5 mg PO Q4H PRN (Reason: pain (scale score 7-10)) Qty: 24 0RF Continued loratadine 10 mg tablet 10 mg PO DAILY Qty: 90 2RF omeprazole 20 mg capsule,delayed release(DR/EC) 20 mg PO DAILY Qty: 90 2RF metformin 500 mg tablet 500 mg PO BID Qty: 180 2RF cimetidine 200 mg tablet 200 mg PO DAILY Qty: 90 1RF atorvastatin 40 mg Tablet 40 mg PO BEDTIME 0RF lisinopril 20 mg tablet 20 mg PO DAILY 90 Days Qty: 90 1RF fluticasone propionate 50 mcg/actuation spray,suspension 1 spray intranasal DAILY 0RF Discharge Orders: Discharge Order (Routine); Ordered 06/04/21 Ordered By: Marta Magaña Diet: diabetic diet and low fat, low cholesterol Activity on Discharge: No heavy lifting Stand Alone Forms: Patient Portal Discharge page Activity Restrictions/Additional Instructions: If the incision area is tender, you may apply an ice pack for short intervals (No more than 20 minutes on, followed by at least 20 minutes off). Do not apply heat. Do not use creams, lotions, or topical antibiotics unless instructed to do so by your surgeon. These can cause infection or allergic reaction. Ok to shower. Remove clear dressings 3 days following your procedure. You have steri strips (small white cloth strips) covering your incision- these will fall off ~1 week. No heavy lifting (>10lbs) or strenuous activity! Follow up in office with Dr. Wiley in 1 week. ([phone]) Call Your Doctor If: -Your temperature exceeds 101.5? F -You experience excessive pain or swelling -You have an unexpected reaction to medication -You have excessive bleeding -You experience continued vomiting/nausea -Your incision begins to separate -Your incision shows signs of infection such as increased redness, swelling, excessive pain, drainage (light blood or clear fluid is normal) or heat Care Plan Goals: Return to normal diet in one month and normal activity in 2 weeks Health Concerns: Abdominal pain right upper abdomen Plan of Treatment: Laparoscopc cholecystectomy on 06/03/2021 Assessment: Acute cholecystitis due to cholelithiasis Discharge Date/Time: 06/04/21 15:20
--- NOTE | 2021-06-04 14:52 | MHC.CM.PN ---
PATIENT IS INDEPENDENT WITH ADLS. HE IS DC HOME WITH NO SERVICES. IMM 06/03/21 IN CHART [facility] [place]SP[place]
== END 2021-06-04 15:20 | disposition home or self-care (01) | DRG 419 ==
LOC: HO.ED 10:06 → HO.EDOVER 10:37 → HO.S3 06-03 09:10
PROVIDERS: Emergency Medicine; Admitting Provider Surgery; Emergency Provider Emergency Medicine; PCP Physician Assistant; Visit Provider Surgery
PROC: 0FT44ZZ Resection of Gallbladder, Percutaneous Endoscopic Approach (ICD-10-PCS; CPT 47562; principal; 2021-06-03 13:45)
DX: K80.12 Calculus of gallbladder with acute and chronic cholecystitis without obstruction (principal); E78.5 Hyperlipidemia, unspecified; E11.9 Type 2 diabetes mellitus without complications; K21.9 Gastro-esophageal reflux disease without esophagitis; Z20.822 Contact with and (suspected) exposure to COVID-19; Z87.442 Personal history of urinary calculi; Z88.0 Allergy status to penicillin; Z79.51 Long term (current) use of inhaled steroids; Z79.84 Long term (current) use of oral hypoglycemic drugs; Z79.899 Other long term (current) drug therapy
CPT/HCPCS: 36415; 74177; 80048; 80076; 81003; 82947; 83690; 85025; 87635; 88304; 93005; 96374; 96375; 96376; 99285; J0131; J1100; J1170; J1650; J2250; J2270; J2405; J2543; J3010; Q9967

== ENCOUNTER 2021-06-20 12:54 | Outpatient (REF) | payer OTHER, SELFPAY ==
--- NOTE | ~2021-06-20 | CT_ITS ---
EXAMINATION: CT ABDOMEN AND PELVIS WITH CONTRAST CLINICAL INFORMATION: Nonobstructive gastroenteritis and colitis COMPARISON: Previous CT of the abdomen and pelvis most recent May 2021 TECHNIQUE: Multidetector volumetric images were obtained from the superior aspect of the liver through the pubic symphysis following administration 85 mL of Omnipaque 350 intravenous contrast. Sagittal and coronal reformatted images were obtained on the technologist's workstation. Oral contrast: Yes This CT examination was performed using dose optimization techniques as appropriate, variously including the following: *Automated exposure control *Adjustment of mA and/or kV according to patient size (this includes techniques or standardized protocols for targeted exams where dose is matched to indication/reason for exam; i.e. extremities or head) *Use of iterative reconstruction technique DLP: 388 mGy-cm FINDINGS: LUNG BASES: The visualized lung bases are unremarkable. LIVER, GALLBLADDER, AND BILIARY TREE: The liver is normal in size, shape, and attenuation. No focal hepatic lesion or biliary ductal dilatation is present. The gallbladder has been removed in the interval from May 2021 exam. There is a small amount of fluid seen in the gallbladder fossa. There is no ascites.. PANCREAS: Unremarkable. SPLEEN: Unremarkable. ADRENAL GLANDS: Unremarkable. KIDNEYS AND URETERS: There is a large cyst in the lower pole of the left kidney that measures 11 cm. There is a 3 mm stone in the lower pole of the left kidney. The right kidney is unremarkable. BLADDER: Unremarkable. GASTROINTESTINAL TRACT: The small and large bowel are unremarkable. The appendix is unremarkable. ABDOMINAL WALL: No significant hernia is appreciated. LYMPH NODES: Normal. VASCULAR: Unremarkable. PELVIC VISCERA: The prostate gland is enlarged and protrudes into the base of the bladder. OSSEOUS STRUCTURES: There is heterogeneous attenuation in the left femoral intertrochanteric region that appears unchanged and is stable from old exam suggestive of a benign process. There are degenerative changes of the spine. CT/CT abdomen pelvis w con IMPRESSION: No evidence of gastroenteritis or colitis. Interval cholecystectomy. Small amount of fluid in the gallbladder fossa. No biliary duct dilatation or ascites. Large left renal cyst. Left renal stone. Enlarged prostate gland protrudes into the base of the bladder. Fleischner guidelines were followed.
[2021-06-20] MEDS: iohexoL 350 MG/ML 100 ML INFUS..BTL IV (15:56)
[2021-06-20] MEDS: Barium Sulfate Oral (Berry) 450 ML ORAL.SUSP 900 ML PO (15:56)
== END 2021-06-20 12:55 | disposition home or self-care (01) ==
LOC: HO.CT 12:54
PROVIDERS: PCP Physician Assistant; Visit Provider Physician Assistant
DX: K52.9 Noninfective gastroenteritis and colitis, unspecified (principal); N28.89 Other specified disorders of kidney and ureter
CPT/HCPCS: 74177; Q9967

== ENCOUNTER → 2021-06-29 13:05 | Outpatient (BNVA) | payer OTHER, SELFPAY | PROVIDERS: PCP Physician Assistant; Visit Provider Surgery | DX: Z48.815 Encounter for surgical aftercare following surgery on the digestive system (principal); Z90.49 Acquired absence of other specified parts of digestive tract; Z87.19 Personal history of other diseases of the digestive system | CPT/HCPCS: 99212 ==

== ENCOUNTER 2021-07-06 11:21 | Outpatient (REF) | payer OTHER, SELFPAY ==
[2021-07-06 12:30] LABS: COVID-19 Test Negative (Negative); IDNOW Serial# 55D5AD1C
== END 2021-07-06 11:22 | disposition home or self-care (01) ==
LOC: HO.LAB 11:21
PROVIDERS: Visit Provider Internal Medicine
DX: Z20.822 Contact with and (suspected) exposure to COVID-19 (principal)
CPT/HCPCS: 87635; C9803

== ENCOUNTER 2021-07-26 08:55 | Outpatient (REF) | payer OTHER, SELFPAY ==
[2021-07-26 09:24] LABS: Hematocrit 45.8 % (42.0-52.0); Mean Corpuscular HGB Conc 32.8 g/dl (31.0-36.0); Mean Corpuscular Hemoglobin 30.4 pg (27.0-33.0); Mean Corpuscular Volume 92.9 fL (80.0-98.0); Mean Platelet Volume 11.6 fL (9.4-12.4); Platelet Count 113 X10*3/uL (160-400); Red Blood Count 4.93 X10*6/uL (4.60-5.80); Red Cell Distribution Width 12.1 % (11.0-16.0); White Blood Count 4.1 X10*3/uL (4.8-10.8)
[2021-07-26 09:36] LABS: Estimated Average Glucose 131 mg/dL; Hemoglobin A1c % 6.2 %
[2021-07-26 09:49] LABS: Alanine Aminotransferase 44 U/L (0-40); Alkaline Phosphatase 55 U/L (39-117); Anion Gap 12 (12-20); Aspartate Amino Transferase 30 U/L (5-37); Bilirubin Total 0.9 mg/dL (0.0-1.0); Blood Urea Nitrogen 11 mg/dL (9-16); Calcium 9.3 mg/dL (8.4-10.2); Carbon Dioxide 27 mmol/L (22-29); Chloride 105 mmol/L (96-108); Estimated Glomerular Filt Rate > 60; Glucose Fasting 109 mg/dL (60-99); Potassium 5.2 mmol/L (3.3-5.1); Sodium 139 mmol/L (135-145)
[2021-07-26 10:07] LABS: TSH reflex Free T4 1.51 uIU/mL (0.32-4.0)
[2021-07-26 10:08] LABS: Prostate Specific Antigen 3.73 ng/mL (<0.05-4.0)
[2021-07-26 10:39] LABS: Creatinine Urine 134.64 mg/dL; Microalbum/Creatinine Ratio Ur 31.1 ug/mg cr
== END 2021-07-26 08:56 | disposition home or self-care (01) ==
LOC: HO.LAB 08:55
PROVIDERS: Urology; PCP Physician Assistant; Visit Provider Physician Assistant
DX: Z12.5 Encounter for screening for malignant neoplasm of prostate (principal); N40.1 Benign prostatic hyperplasia with lower urinary tract symptoms; I10 Essential (primary) hypertension; E11.9 Type 2 diabetes mellitus without complications
CPT/HCPCS: 36415; 80053; 82043; 83036; 84153; 84443; 85027

== ENCOUNTER → 2021-08-07 11:38 | Outpatient (BNVA) | payer OTHER, SELFPAY | PROVIDERS: PCP Physician Assistant; Visit Provider Urology | DX: N40.1 Benign prostatic hyperplasia with lower urinary tract symptoms (principal); R97.20 Elevated prostate specific antigen [PSA] | CPT/HCPCS: Q3014 ==

== ENCOUNTER → 2021-08-24 10:23 | Outpatient (BNVA) | payer OTHER, SELFPAY | PROVIDERS: PCP Physician Assistant; Visit Provider Nurse Practitioner | DX: K21.9 Gastro-esophageal reflux disease without esophagitis (principal); R63.4 Abnormal weight loss | CPT/HCPCS: 99202 ==

== ENCOUNTER 2021-09-03 15:16 | Outpatient (REF) | payer OTHER, SELFPAY ==
[2021-09-03 17:24] LABS: Anion Gap 12 (12-20); Blood Urea Nitrogen 15 mg/dL (9-16); Calcium 9.4 mg/dL (8.4-10.2); Carbon Dioxide 27 mmol/L (22-29); Chloride 105 mmol/L (96-108); Estimated Glomerular Filt Rate > 60; Glucose Random 65 mg/dL (60-115); Potassium 4.4 mmol/L (3.3-5.1); Sodium 140 mmol/L (135-145)
[2021-09-03 17:52] LABS: Appearance Urine CLEAR; Color Urine YELLOW; Glucose Urine UA NEG (NEG); Leukocyte Esterase Urine NEG (NEG); Nitrite Urine NEG (NEG); Specific Gravity - Urine 1.025 (1.005-1.025); Urine Blood NEG (NEG); Urine Ketones NEG (NEG); Urine Protein NEG (NEG-TRACE)
== END 2021-09-03 15:17 | disposition home or self-care (01) ==
LOC: HO.HMGCLDS 15:16
PROVIDERS: Visit Provider Physician Assistant
DX: M25.50 Pain in unspecified joint (principal); Z87.442 Personal history of urinary calculi
CPT/HCPCS: 36415; 80048; 81003

== ENCOUNTER 2021-09-04 10:30 | Outpatient (REF) | payer OTHER, SELFPAY ==
--- NOTE | ~2021-09-04 | XR_ITS ---
EXAMINATION: XR lumbar spine 2-3V CLINICAL INFORMATION: Reason for Exam M54.50 - Low back pain, unspecified COMPARISON: CT abdomen pelvis 06/21/2019 TECHNIQUE: 3 views of the lumbar spine FINDINGS: Transitional lumbosacral anatomy. There are 4 nonrib-bearing lumbar-type vertebral bodies with sacralization of L5. The last well-formed disc space will be referred to as L4-L5. There are rudimentary T12 ribs. Vertebral body heights are maintained. Loss of usual lumbar lordosis. Moderate degenerative disc disease at L4-L5 with loss of disc space height and anterior disc osteophyte complex is with advanced L4-L5 facet arthropathy. Paravertebral soft tissues are unremarkable. XR/XR lumbar spine 2-3V IMPRESSION: * Transitional lumbosacral anatomy. There are 4 nonrib-bearing lumbar-type vertebral bodies with sacralization of L5. The last well-formed disc space will be referred to as L4-L5. There are rudimentary T12 ribs. Intervention is being considered recommend total spine radiographs to ensure accurate numbering. * Moderate degenerative disc disease at L4-L5 with loss of disc space height and anterior disc osteophyte complex is with advanced L4-L5 facet arthropathy.
--- NOTE | ~2021-09-04 | XR_ITS ---
EXAMINATION: XR KUB CLINICAL INDICATION: Reason for Exam M54.50 - Low back pain, unspecified COMPARISON: KUB 05/15/2021 TECHNIQUE: AP view of the abdomen. XR/XR KUB FINDINGS/IMPRESSION: * 3 mm calcification overlying the left lower renal pole similar to prior CT corresponding to known renal stone. * Nonobstructive bowel gas pattern. No significant stool burden.
== END 2021-09-04 10:31 | disposition home or self-care (01) ==
LOC: HO.XRAY 10:30
PROVIDERS: PCP Physician Assistant; Visit Provider Physician Assistant
DX: M54.50 Low back pain, unspecified (principal); Z87.442 Personal history of urinary calculi
CPT/HCPCS: 72100; 74018

== ENCOUNTER 2021-09-08 16:09 | Emergency (ER) | payer OTHER, SELFPAY ==
--- NOTE | ~2021-09-08 | CT_ITS ---
EXAMINATION: CT ABDOMEN AND PELVIS WITHOUT CONTRAST CLINICAL INFORMATION: Left flank pain. History of stones COMPARISON: 06/20/2021 TECHNIQUE: Multidetector volumetric imaging was performed from the lung bases through the pubic symphysis. Sagittal and coronal reformatted images were obtained on the technologist workstation. This CT examination was performed using dose optimization techniques as appropriate, variously including the following: *Automated exposure control *Adjustment of mA and/or kV according to patient size (this includes techniques or standardized protocols for targeted exams where dose is matched to indication/reason for exam; i.e. extremities or head) *Use of iterative reconstruction technique FINDINGS: The lack of intravenous contrast limits evaluation of the solid visceral organs including the liver, spleen, pancreas, and kidneys. LUNG BASES: Borderline cardiomegaly. Lung bases are clear. LIVER, GALLBLADDER, AND BILIARY TREE: Limited non-contrast evaluation is normal. No gross focal hepatic lesion. Normal liver size and contour. No gross biliary ductal dilation. Status post cholecystectomy. No biliary ductal dilatation. PANCREAS: Limited non-contrast evaluation is normal. No khushbu-pancreatic fluid. SPLEEN: Limited non-contrast evaluation is normal. ADRENAL GLANDS: Normal; no adrenal mass. KIDNEYS AND URETERS: Nonobstructing 3 to 4 mm left lower pole calculus. 9 cm exophytic left renal cyst. No right renal calculi. No hydronephrosis or hydroureter bilaterally. GASTROINTESTINAL TRACT: Small bowel and colon are non-dilated. No bowel wall thickening. No pericolonic inflammatory changes to suggest colitis or diverticulitis. Normal appendix. ABDOMINAL WALL: Fat-containing bilateral inguinal hernias. LYMPH NODES: No pathologically enlarged lymph nodes in the abdomen or pelvis. VASCULAR: Normal caliber abdominal aorta. BLADDER: Unremarkable. PELVIC VISCERA: The prostate is enlarged, 5.2 x 4.8 cm.. There is a central prostatic defect consistent with prior TURP. OSSEOUS STRUCTURES: Heterogeneous mixed density sclerotic lesion in the left femoral intertrochanteric region is again seen, unchanged. Differential considerations would include a bone infarct, fibrous dysplasia, or likely sclerosing myxofibrous tumor. CT/CT abdomen pelvis wo con IMPRESSION: No acute CT findings. 3 to 4 mm nonobstructing left lower pole calculus. Large left renal cyst requiring no imaging follow-up.
[2021-09-08 16:34] VITALS: BP 118/79; PULSE 77; RESP 16; TEMP 36.4; O2SAT 98; BMI 27.6
[2021-09-08 20:49] LABS: Basophils Percent Auto 0.3 % (0-2); Imm Gran Abs Auto 0.01 X10*3/uL (0.00-0.03); Imm Gran Pct Auto 0.2 % (0.0-0.4); Mean Corpuscular HGB Conc 33.3 g/dl (31.0-36.0); Mean Platelet Volume 11.1 fL (9.4-12.4); PLT CLUMP 1; SCAN SMEAR FLAG 1
[2021-09-08 20:51] LABS: Eosinophils Absolute Auto 0.1 X10*3/uL (0.0-0.4); Eosinophils Percent Auto 1.5 % (0-4); Hematocrit 44.2 % (42.0-52.0); Hemoglobin 14.7 g/dl (14.0-18.0); Lymphocytes Absolute Auto 1.7 X10*3/uL (1.2-4.9); Lymphocytes Percent Auto 28.6 % (20-40); Mean Corpuscular Hemoglobin 30.4 pg (27.0-33.0); Mean Corpuscular Volume 91.3 fL (80.0-98.0); Monocytes Absolute Auto 0.5 X10*3/uL (0.1-1.2); Monocytes Percent Auto 8.8 % (2-11); Neutrophils Absolute Auto 3.6 x10*3/uL (2.0-8.3); Neutrophils Percent Auto 60.6 % (45-73); Red Blood Count 4.84 X10*6/uL (4.60-5.80); Red Cell Distribution Width 11.8 % (11.0-16.0)
[2021-09-08 21:06] LABS: White Blood Count 5.9 X10*3/uL (4.8-10.8)
[2021-09-08 21:07] LABS: Alanine Aminotransferase 39 U/L (0-40); Alkaline Phosphatase 57 U/L (39-117); Anion Gap 11 (12-20); Aspartate Amino Transferase 25 U/L (5-37); Bilirubin Direct 0.3 mg/dL (0.0-0.5); Bilirubin Total 0.8 mg/dL (0.0-1.0); Blood Urea Nitrogen 14 mg/dL (9-16); Calcium 8.9 mg/dL (8.4-10.2); Carbon Dioxide 27 mmol/L (22-29); Chloride 104 mmol/L (96-108); Estimated Glomerular Filt Rate > 60; Glucose Random 111 mg/dL (60-115); MANUAL DIFF FLAG NO; Platelet Count 117 X10*3/uL (160-400); Potassium 4.2 mmol/L (3.3-5.1); Sodium 138 mmol/L (135-145); Total Protein 6.9 g/dL (6.5-8.0)
--- NOTE | 2021-09-08 22:28 | ED.GENADULT ---
HPI - General Adult General Chief complaint: General Medical Stated complaint: lower back pain Time Seen by Provider: 09/08/21 17:55 Source: patient Mode of arrival: ambulatory Limitations: other (Poor historian) History of Present Illness HPI narrative: 66-year-old male history of kidney stones requiring multiple operations, tubular adenoma of the colon, constipation, diabetes, recent laparoscopic cholecystectomy on 06/03/2021, hyperlipidemia, GERD, hypertension presents to the emergency department with complaints of severe left flank pain times a week or 2 worsening. Patient tells me that he has intermittent stabbing, severe 10/10 left-sided flank pain. Tells me was seen at urgent care where they thought this is muscular and they prescribed him baclofen, he tells me this is not been helping the pain it has just been helping him fall asleep however he tells me pain wakes him from his sleep. Denies fevers, chills chest pain, shortness nausea, vomiting, changes in urination and abdominal pain Onset (ago): week(s) (1) Location: left (flank ) Radiation: non-radiation Severity: severe Severity scale (1-10): >10 Quality: stabbing Relieving factors: none Exacerbating factors: none Associated symptoms: denies other symptoms Treatments prior to arrival: none Related Data Home Medications Medication Instructions Recorded Confirmed fluticasone propionate 50 1 spray intranasal DAILY 02/06/21 08/07/21 mcg/actuation nasal spray,suspension ciprofloxacin HCl 500 mg tablet 500 mg PO BID 08/07/21 08/07/21 metronidazole 500 mg tablet 500 mg PO BID 08/07/21 08/07/21 Previous Rx's Medication Instructions Recorded cimetidine 200 mg tablet 200 mg PO DAILY #90 tabs 06/25/21 loratadine 10 mg tablet 10 mg PO DAILY #90 tabs 07/04/21 omeprazole 20 mg capsule,delayed 20 mg PO DAILY #90 caps 07/20/21 release blood pressure monitor (Blood #1 ea 07/25/21 Pressure Kit) dutasteride 0.5 mg capsule 0.5 mg PO DAILY 90 days #90 caps 08/07/21 metformin 500 mg tablet 500 mg PO BID #180 tabs 08/07/21 terazosin 5 mg capsule 5 mg PO BEDTIME 90 days #90 caps 08/07/21 atorvastatin 40 mg tablet 40 mg PO BEDTIME #30 tabs 08/14/21 sucralfate 1 gram tablet (Carafate) 1 g PO QNOON #30 tabs 08/24/21 lisinopril 20 mg tablet 20 mg PO DAILY 90 days #90 tabs 08/27/21 plecanatide 3 mg tablet (Trulance) 3 mg PO DAILY #30 tabs 08/27/21 baclofen 10 mg tablet 10 mg PO BID 10 days #20 tabs 09/05/21 lidocaine 5 % topical patch 1 patch topical DAILY PRN pain #15 09/09/21 ea morphine 15 mg immediate release 15 mg PO BID PRN pain #6 tabs 09/09/21 tablet Allergies Allergy/AdvReac Type Severity Reaction Status Date / Time aspirin [ASPIRIN] Allergy Unknown LOW Verified 09/03/21 14:41 PLATELETS finasteride Allergy Unknown lower Verified 09/03/21 14:41 extremity parasthesia tamsulosin AdvReac Intermediate Abdominal Verified 09/03/21 14:41 Pain Review of Systems Review of Systems: Constitutional : No Weight loss, No Fever, No Chills, No Fatigue, No Malaise ENT/Mouth : No sore throat, No Rhinorrhea Eyes: No Eye Pain, No Swelling, No Redness Cardiovascular : No Chest Pain, No SOB, No Dyspnea on Exertion, No Orthopnea, No Edema, No Palpitations Respiratory : No Cough, No Sputum, No Wheezing Gastrointestinal : No Nausea, No Vomiting, No Diarrhea, No Constipation, No abdominal Pain, No Hematochezia, No Melena Genitourinary : No Dysuria, No Urinary Frequency, No Hematuria, Musculoskeletal : No joint pain, No Myalgias, No Joint Swelling, + flank pain Skin : No Skin Lesions, No rash Neuro : No Weakness, No Numbness, No Dizziness, No Headache Psych : No Anxiety/Panic, No Depression All other systems reviewed and are negative Yes all other systems are reviewed and are negative [facility] Past Medical History Attestation statement: The following information was validated with the patient. Source: old records reviewed and nursing notes reviewed Medical History Abdominal mass Allergic rhinitis BPH (benign prostatic hyperplasia) BPH loc w urin obs/LUTS Cholecystitis, acute with cholelithiasis Diabetes Diabetes mellitus Elevated cholesterol Elevated PSA GERD (gastroesophageal reflux disease) Headache Overweight (BMI 25.0-29.9) Pharyngitis Presbyopia Surgical History History of colonoscopy History of inguinal hernia repair, bilateral History of lithotripsy History of local excision of skin lesion History of parathyroidectomy History of prostate surgery Hx of cholecystectomy S/P laparoscopic cholecystectomy (~06/03/21) Family History Family History Mother No problems noted. Father No problems noted. Social History Social History Household Members: Spouse Housing: House Do you presently have visiting nurse or other home services: No Alcohol intake: never Patient Tobacco Use Status: Never used Tobacco e-Cigarette/Vaping Use: Never Used Second Hand Smoke Exposure: No Advance Directives: No Advance Directives Information Provided: Yes service: No Current occupational status: employed Cognitive needs: No Hearing needs: No Vision needs: Yes Physical Exam ED Vital Signs: Vital Signs - 24 hr 09/08/21 16:34 09/08/21 23:20 09/09/21 00:49 Temperature 97.6 F 96.9 F 97.7 F Pulse Rate 77 75 82 Respiratory Rate 16 16 18 Blood Pressure 118/79 149/85 H 140/88 H Pulse Oximetry 98 97 98 Oxygen Delivery Method Room Air Room Air Room Air BMI result Body Mass Index 27.6 Vital signs stable Appearance: Alert.? Oriented X3.? No acute distress.? Head: Normocephalic, atraumatic, no step-offs or deformities Eyes: Pupils equal, round and reactive to light.? ENT: Pharynx normal.? Neck: Normal inspection.? Neck supple.? CVS: Normal heart rate and rhythm.? Pulses normal.? Respiratory: No respiratory distress.? Breath sounds normal.? Abdomen: Soft and nontender.? Skin: Skin warm and dry.? Normal skin color.? Normal skin turgor.? Extremities: No lower extremity edema.? No calf ttp. 5/5 strength to bilateral upper and lower extremities Back: No midline tenderness, no C-spine tenderness, full range of motion, no CVA tenderness bilaterally Neuro: Oriented X 3.? No motor deficit.? No sensory deficit. CN 2-12 intact Course Reevaluation(s) Reevaluation #1: CBC within normal limits. Chemistry with no acute electrolyte abnormalities requiring intervention. Time: 22:34 Reevaluation #2: Nonobstructing 3-4 mm left lower pole calculus, 9 cm exophytic left renal cyst also noted, unlikely that the stones are causing patient's pain however did it is likely that he did pass a kidney stone based off of his history, physical examination. Unlikely that this is pyelonephritis. UA clean. Time: 23:21 Reevaluation #3: Patient eating without issues Pain improved with morphine. Patient tells me his pain was initially 10/10 and now it is a 5/10. Due to location of the kidney stones I do not suspect the stone is currently causing pain, patient could have passed a kidney stone or this could be musculoskeletal. Patient is denying any back pain, no midline tenderness, patient has no history of IV drug abuse, no previous back surgeries. I do not suspect epidural abscess or cauda equina. Patient ambulating with steady gait 2+ patellar reflexes equal bilateral. Normal coordination normal sensory and motor, no saddle paresthesias. Patient will be discharged home with morphine and with Lidoderm patches. Advised him to return with new or worsening symptoms. At this time patient will be discharged. Comfortable discharge home Time: 01:55 Medical Decision Making [facility] Narrative Medical decision making narrative: 2230 66 yo m presents w/ severe intermittent stabbing l flank pain X1 week. Hx of kidney stones PE left sided CVA tenderness Plan- labs, urine, imaging Unlikely diverticulitis, appendicitis, cholecystitis. Likely musculoskeletal or kidney stone Medical Records Medical records reviewed: Yes I reviewed the patient's medical records. Lab Data Lab results reviewed: Yes I reviewed the patient's lab results. Result diagrams: 09/08/21 20:39 09/08/21 20:39 Labs: Lab Results 09/08/21 09/08/21 09/09/21 Range/Units 20:39 20:39 00:23 WBC 5.9 (4.8-10.8) X10*3/uL RBC 4.84 (4.60-5.80) X10*6/uL Hgb 14.7 (14.0-18.0) g/dl Hct 44.2 (42.0-52.0) % MCV 91.3 (80.0-98.0) fL MCH 30.4 (27.0-33.0) pg MCHC 33.3 (31.0-36.0) g/dl RDW 11.8 (11.0-16.0) % Plt Count 117 L (160-400) X10*3/uL MPV 11.1 (9.4-12.4) fL Immature Gran % (Auto) 0.2 (0.0-0.4) % Neut % (Auto) 60.6 (45-73) % Lymph % (Auto) 28.6 (20-40) % Mayes % (Auto) 8.8 (2-11) % Eos % (Auto) 1.5 (0-4) % Baso % (Auto) 0.3 (0-2) % Lymph # (Auto) 1.7 (1.2-4.9) X10*3/uL Mayes # (Auto) 0.5 (0.1-1.2) X10*3/uL Eos # (Auto) 0.1 (0.0-0.4) X10*3/uL Baso # (Auto) 0.0 (0.0-0.2) X10*3/uL Abs Immat Gran (auto) 0.01 (0.00-0.03) X10*3/uL Absolute Neuts (auto) 3.6 (2.0-8.3) x10*3/uL Absolute Nucleated RBC 0.000 (0.0-0.012) X10*3/uL Nucleated RBC % (auto) 0.0 (0.0-0.2) /100WBC Sodium 138 (135-145) mmol/L Potassium 4.2 (3.3-5.1) mmol/L Chloride 104 (96-108) mmol/L Carbon Dioxide 27 (22-29) mmol/L Anion Gap 11 L (12-20) BUN 14 (9-16) mg/dL Creatinine 0.85 (0.5-1.4) mg/dL Estim Creat Clear Calc 87.0 Estimated GFR > 60 Random Glucose 111 D (60-115) mg/dL Calcium 8.9 (8.4-10.2) mg/dL Total Bilirubin 0.8 (0.0-1.0) mg/dL Direct Bilirubin 0.3 (0.0-0.5) mg/dL AST 25 (5-37) U/L ALT 39 (0-40) U/L Alkaline Phosphatase 57 (39-117) U/L Total Protein 6.9 (6.5-8.0) g/dL Albumin 4.0 (3.5-5.0) g/dL Urine Color YELLOW Urine Appearance CLEAR Urine pH 6.0 (5.0-8.0) Ur Specific [place] 1.015 (1.005-1.025) Urine Protein NEG (NEG-TRACE) MG/DL Urine Glucose (UA) NEG (NEG) MG/DL Urine Ketones NEG (NEG) MG/DL Urine Blood NEG (NEG) Urine Nitrite NEG (NEG) Ur Leukocyte Esterase NEG (NEG) Critical Care Time Critical Care Time Critical Care Time: No Discharge Plan Discharge Clinical Impression: Kidney calculi Patient Disposition: Home, Self-Care Instructions: Kidney Stones (ED) Additional Instructions: Take your medications as prescribed. If you were prescribed antibiotics today, it is important that you take your medication to their entirety, do not skip any doses, do not finish them early. Follow-up with your primary care provider this week. Follow-up with urology. Return to the emergency department with new or worsening symptoms. Such as fevers, chills, chest pain, shortness of breath, nausea, vomiting, dizziness, headache, vision changes, lethargy In case of emergency call 911 Prescriptions: New morphine 15 mg tablet 15 mg PO BID PRN (Reason: pain) Qty: 6 0RF Rx Instructions: Partial Fill upon patient request. lidocaine 5 % adhesive patch,medicated 1 patch topical DAILY PRN (Reason: pain) Qty: 15 0RF Rx Instructions: leave on most painful area for up to 12 hrs No Action cimetidine 200 mg tablet 200 mg PO DAILY Qty: 90 1RF omeprazole 20 mg capsule,delayed release(DR/EC) 20 mg PO DAILY Qty: 90 2RF metformin 500 mg tablet 500 mg PO BID Qty: 180 2RF atorvastatin 40 mg tablet 40 mg PO BEDTIME Qty: 30 1RF Trulance 3 mg tablet 3 mg PO DAILY Qty: 30 3RF lisinopril 20 mg tablet 20 mg PO DAILY 90 Days Qty: 90 1RF baclofen 10 mg tablet 10 mg PO BID 10 Days Qty: 20 0RF loratadine 10 mg tablet 10 mg PO DAILY Qty: 90 2RF (DME) blood pressure monitor [Blood Pressure Kit] Kit See Rx Instructions .Route Qty: 1 0RF Rx Instructions: As directed fluticasone propionate 50 mcg/actuation spray,suspension 1 spray intranasal DAILY ciprofloxacin HCl 500 mg tablet 500 mg PO BID metronidazole 500 mg tablet 500 mg PO BID terazosin 5 mg capsule 5 mg PO BEDTIME 90 Days Qty: 90 1RF dutasteride 0.5 mg capsule 0.5 mg PO DAILY 90 Days Qty: 90 1RF sucralfate [Carafate] 1 gram tablet 1 g PO QNOON Qty: 30 3RF Referrals: Sai Snow MD [Physician] - 1 week Memo Gallo PA-C [Primary Care Provider] - 2 days
[2021-09-08] MEDS: 0.9 % Sodium Chloride 1,000 ML 999 ML IV (23:17)
[2021-09-08] MEDS: Morphine Sulfate 4 MG/ML CARTRIDGE IVPUSH (23:17)
[2021-09-08] MEDS: predniSONE 20 MG TABLET PO (23:17)
[2021-09-08] MEDS: Tamsulosin HCL 0.4 MG CAPSULE PO (23:17)
[2021-09-08 23:20] VITALS: BP 149/85; PULSE 75; RESP 16; TEMP 36.1; O2SAT 97
[2021-09-09 00:28] LABS: Appearance Urine CLEAR; Color Urine YELLOW; Glucose Urine UA NEG (NEG); Leukocyte Esterase Urine NEG (NEG); Nitrite Urine NEG (NEG); Specific Gravity - Urine 1.015 (1.005-1.025); Urine Blood NEG (NEG); Urine Ketones NEG (NEG); Urine Protein NEG (NEG-TRACE)
[2021-09-09 00:49] VITALS: BP 140/88; PULSE 82; RESP 18; TEMP 36.5; O2SAT 98
[2021-09-09 02:03] LABS: Lipase 39 U/L (8-78)
[2021-09-09] MEDS: Lidocaine 4 % Patch ADH..PATCH 1 PATCH TRANSDERMA (02:10)
== END 2021-09-09 02:20 | disposition home or self-care (01) ==
PROVIDERS: Physician Assistant; Emergency Provider Emergency Medicine; PCP Physician Assistant
DX: N20.0 Calculus of kidney (principal); R10.9 Unspecified abdominal pain; E11.9 Type 2 diabetes mellitus without complications; I10 Essential (primary) hypertension; E78.5 Hyperlipidemia, unspecified; Z87.442 Personal history of urinary calculi; Z90.49 Acquired absence of other specified parts of digestive tract; Z79.02 Long term (current) use of antithrombotics/antiplatelets
CPT/HCPCS: 36415; 74176; 80048; 80076; 81003; 83690; 85025; 96361; 96374; 99283; 99284; J2270

== ENCOUNTER 2021-10-01 09:14 | Outpatient (REF) | payer OTHER, SELFPAY ==
[2021-10-01 11:12] LABS: PSA,Total (Free>4and<10) 2.49 ng/mL (0.00-4.00)
== END 2021-10-01 09:15 | disposition home or self-care (01) ==
LOC: HO.LAB 09:14
PROVIDERS: Urology; PCP Physician Assistant; Visit Provider Physician Assistant
DX: Z12.5 Encounter for screening for malignant neoplasm of prostate (principal); N40.1 Benign prostatic hyperplasia with lower urinary tract symptoms; R97.20 Elevated prostate specific antigen [PSA]; N13.8 Other obstructive and reflux uropathy
CPT/HCPCS: 36415; 84153

== ENCOUNTER 2021-10-03 05:58 | Emergency (ER) | payer OTHER, SELFPAY ==
--- NOTE | ~2021-10-03 | CT_ITS ---
EXAMINATION: CT ABDOMEN AND PELVIS WITHOUT CONTRAST CLINICAL INFORMATION: Left flank pain and left lower quadrant pain COMPARISON: 09/08/2021 TECHNIQUE: Multidetector volumetric imaging was performed from the superior aspect of the liver through the pubic symphysis. Sagittal and coronal reformatted images were obtained on the technologist's workstation. This CT examination was performed using dose optimization techniques as appropriate, variously including the following: *Automated exposure control *Adjustment of mA and/or kV according to patient size (this includes techniques or standardized protocols for targeted exams where dose is matched to indication/reason for exam; i.e. extremities or head) *Use of iterative reconstruction technique DLP: 607 mGy-cm FINDINGS: LUNG BASES: Minimal left basilar pleural thickening. LIVER, GALLBLADDER, AND BILIARY TREE: Moderate hepatic steatosis. No intrahepatic biliary dilatation. No focal hepatic mass. The gallbladder is surgically absent. PANCREAS: Unremarkable. SPLEEN: Unremarkable. ADRENAL GLANDS: Unremarkable. KIDNEYS AND URETERS: There is mild left hydronephrosis. There is mild distention of the left ureter down to the bladder. The previously noted left nephrolith is now not seen. However, there is a 3.5 mm stone in the bladder, just past the left UVJ. There is no evidence for right or left nephrolithiasis or right hydronephrosis. There is a large exophytic cyst projecting off of the posterior mid left kidney at 8.5 cm. BLADDER: Small stone in the bladder just past the left UVJ. GASTROINTESTINAL TRACT: The small and large bowel are unremarkable. The appendix is unremarkable. ABDOMINAL WALL: Small bilateral fat-containing inguinal hernias are noted with some induration around the right inguinal hernia. Bowel does not participate. LYMPH NODES: Normal. VASCULAR: The iliac bifurcation is atherosclerotic but nonaneurysmal. PELVIC VISCERA: Unremarkable. OSSEOUS STRUCTURES: Generative disc disease noted L3-S1. No fracture or destructive process. CT/CT abdomen pelvis wo con IMPRESSION: Recently passed stone now in the bladder, with resultant left ureteral pyelocaliectasis. Fleischner guidelines were followed.
[2021-10-03 06:03] VITALS: BP 185/107; PULSE 72; O2SAT 100
[2021-10-03 06:13] VITALS: BP 164/86; PULSE 71; RESP 16; TEMP 36.9; O2SAT 99
[2021-10-03 06:20] VITALS: BP 164/86; PULSE 74; RESP 18; TEMP 36.9; O2SAT 97; BMI 28.1
--- NOTE | 2021-10-03 07:17 | ECG_ITS ---
Test Reason : abd pain Blood Pressure : / mmHG Vent. Rate : 073 BPM Atrial Rate : 073 BPM P-R Int : 190 ms QRS Dur : 078 ms QT Int : 382 ms P-R-T Axes : 038 000 032 degrees QTc Int : 420 ms Normal sinus rhythm Normal ECG When compared with ECG of 02-JUN-2021 06:46, No significant change was found Referred By: Abbey Kennedy Electronically Signed By:KELLY YADAV
--- NOTE | 2021-10-03 07:19 | ED_ITS ---
HPI - Abdominal Pain General Chief Complaint: Abdominal Pain Stated Complaint: abdominal pain Time Seen by Provider: 10/03/21 07:11 Source: patient Mode of arrival: ambulatory Limitations: no limitations History of Present Illness HPI narrative: Patient comes to emergency room complaining of left lower quadrant pain starting approximately 4 hours ago. The pain walking up from sleep. Patient complaining of nausea, no vomiting, no constipation or diarrhea. Patient was evaluated for similar pain 3 and half weeks ago. Patient was diagnosed with renal calculi. Patient states that today the pain is worse. Patient denies passing stones recently. Related Data Home Medications Medication Instructions Recorded Confirmed fluticasone propionate 50 1 spray intranasal DAILY 02/06/21 09/13/21 mcg/actuation nasal spray,suspension ciprofloxacin HCl 500 mg tablet 500 mg PO BID 08/07/21 09/13/21 metronidazole 500 mg tablet 500 mg PO BID 08/07/21 09/13/21 Previous Rx's Medication Instructions Recorded cimetidine 200 mg tablet 200 mg PO DAILY #90 tabs 06/25/21 loratadine 10 mg tablet 10 mg PO DAILY #90 tabs 07/04/21 omeprazole 20 mg capsule,delayed 20 mg PO DAILY #90 caps 07/20/21 release blood pressure monitor (Blood #1 ea 07/25/21 Pressure Kit) dutasteride 0.5 mg capsule 0.5 mg PO DAILY 90 days #90 caps 08/07/21 metformin 500 mg tablet 500 mg PO BID #180 tabs 08/07/21 terazosin 5 mg capsule 5 mg PO BEDTIME 90 days #90 caps 08/07/21 sucralfate 1 gram tablet (Carafate) 1 g PO QNOON #30 tabs 08/24/21 lisinopril 20 mg tablet 20 mg PO DAILY 90 days #90 tabs 08/27/21 plecanatide 3 mg tablet (Trulance) 3 mg PO DAILY #30 tabs 08/27/21 baclofen 10 mg tablet 10 mg PO BID 10 days #20 tabs 09/05/21 atorvastatin 40 mg tablet 40 mg PO BEDTIME #30 tabs 09/09/21 lidocaine 5 % topical patch 1 patch topical DAILY PRN pain #15 09/09/21 ea meloxicam 15 mg tablet 15 mg PO DAILY PRN pain 15 days 09/13/21 #15 tabs tizanidine 4 mg tablet 4 mg PO Q8H PRN muscle spasms/left 09/13/21 low back pain 10 days #30 tabs ketorolac 10 mg tablet 10 mg PO BID PRN pain 5 days #10 10/03/21 tabs ondansetron HCl 4 mg tablet 4 mg PO Q6H PRN nausea and 10/03/21 vomiting #10 tabs prednisone 20 mg tablet 20 mg PO DAILY #3 tabs 10/03/21 tamsulosin 0.4 mg capsule 0.4 mg PO BEDTIME #10 caps 10/03/21 Allergies Allergy/AdvReac Type Severity Reaction Status Date / Time aspirin [ASPIRIN] Allergy Unknown LOW Verified 09/13/21 11:48 PLATELETS finasteride Allergy Unknown lower Verified 09/13/21 11:48 extremity parasthesia tamsulosin AdvReac Intermediate Abdominal Verified 09/13/21 11:48 Pain Review of Systems Review of Systems Constitutional : No Weight loss, No Fever, No Chills, No Night Sweats, No Fatigue, No Malaise ENT/Mouth : No Hearing loss, No Ear Pain, No Nasal Congestion, No Sinus Pain, No Hoarseness, No sore throat, No Rhinorrhea, No Swallowing Difficulty Eyes: No Eye Pain, No Swelling, No Redness, No Foreign Body, No Discharge, No Vision Changes Cardiovascular : No Chest Pain, No SOB, No Dyspnea on Exertion, No Orthopnea, No Edema, No Palpitations Respiratory : No Cough, No Sputum, No Wheezing, No Smoke Exposure, No Dyspnea Gastrointestinal : Complaining of Nausea, No Vomiting, No Diarrhea, No Constipation, complaining of severe left lower quadrant pain, No Hematochezia, No Melena Genitourinary : no irregular bleeding, No Dysuria, No Urinary Frequency, No Hematuria, No Urinary Incontinence, No Urgency, No Flank Pain, No Urinary Flow Changes, No Hesitancy Musculoskeletal : No joint pain, No Myalgias, No Joint Swelling Skin : No Skin Lesions, No rash Neuro : No Weakness, No Numbness, No Paresthesias, No Loss of Consciousness, No Dizziness, No Headache Psych : No Anxiety/Panic, No Depression, No SI/HI/AH/VH, No Social Issues, Heme/Lymph: No Bruising, No Bleeding,No Lymphadenopathy Endocrine : No Polyuria, No Polydipsia, No Temperature Intolerance [facility] Past Medical History Medical History Abdominal mass Allergic rhinitis BPH (benign prostatic hyperplasia) BPH loc w urin obs/LUTS Cholecystitis, acute with cholelithiasis Diabetes Diabetes mellitus Elevated cholesterol Elevated PSA GERD (gastroesophageal reflux disease) Headache Overweight (BMI 25.0-29.9) Pharyngitis Presbyopia Surgical History History of colonoscopy History of inguinal hernia repair, bilateral History of lithotripsy History of local excision of skin lesion History of parathyroidectomy History of prostate surgery Hx of cholecystectomy S/P laparoscopic cholecystectomy (~06/03/21) Family History Family History Mother No problems noted. Father No problems noted. Social History Social History Household Members: Spouse Housing: House Do you presently have visiting nurse or other home services: No Alcohol intake: never Patient Tobacco Use Status: Never used Tobacco e-Cigarette/Vaping Use: Never Used Second Hand Smoke Exposure: No Use of substances other than those prescribed or required for medical reasons: No Advance Directives: No Advance Directives Information Provided: No service: No Current occupational status: employed Cognitive needs: No Hearing needs: No Vision needs: Yes Physical Exam ED Vital Signs: Vital Signs - 24 hr 10/03/21 06:20 10/03/21 06:13 10/03/21 07:23 Temperature 98.5 F 98.5 F 98.2 F Pulse Rate 74 71 79 Respiratory Rate 18 16 14 Blood Pressure 164/86 H 164/86 H 168/104 H Pulse Oximetry 97 99 99 Oxygen Delivery Method Room Air Room Air Room Air 10/03/21 09:28 Temperature Pulse Rate 77 Respiratory Rate 17 Blood Pressure 150/87 H Pulse Oximetry 97 Oxygen Delivery Method Room Air BMI result Body Mass Index 28.1 Const Other: Appearance: Alert. Oriented X3. Seems uncomfortable Eyes: Pupils equal, round and reactive to light. ENT: Pharynx normal. Neck: Normal inspection. Neck supple. No lymph nodes noted. No crepitus CVS: Normal heart rate and rhythm. Pulses normal. Normal S1 and S2 Respiratory: No respiratory distress. Breath sounds normal. No Wheezing. No rales Abdomen: Soft , moderately distended, pain to palpation in left lower quadrant, mild rebound, no guarding Skin: Skin warm , mildly diaphoretic. Normal skin color. Normal skin turgor. Extremities: No lower extremity edema. No Lacerations. No Rash Neuro: Oriented X 3. No motor deficit. No sensory deficit. Moving all extremities. No slurred speech. CN 2 through 12 grossly intact Psych: calm, cooperative, normal affect Course Course Course Narrative: Patient is receiving at this time IV fluids, Zofran and morphine. All patient's labs and imaging are pending. I discussed the labs with the patient, patient does have blood in the urine. CT scan shows a small 3 mm stone in the bladder. Patient's pain likely was a kidney stone which already fell into the bladder. Patient requesting another dose of pain medication, this time patient received 1 dose of Toradol. MDM - Abdominal Pain Lab Data Result diagrams: 10/03/21 07:54 10/03/21 07:54 Labs: Lab Results 10/03/21 10/03/21 10/03/21 Range/Units 07:43 07:54 07:54 WBC 7.0 (4.8-10.8) X10*3/uL RBC 4.91 (4.60-5.80) X10*6/uL Hgb 15.2 (14.0-18.0) g/dl Hct 45.2 (42.0-52.0) % MCV 92.1 (80.0-98.0) fL MCH 31.0 (27.0-33.0) pg MCHC 33.6 (31.0-36.0) g/dl RDW 12.1 (11.0-16.0) % Plt Count 121 L (160-400) X10*3/uL MPV 11.2 (9.4-12.4) fL Immature Gran % (Auto) 0.4 (0.0-0.4) % Neut % (Auto) 74.5 H (45-73) % Lymph % (Auto) 17.1 L (20-40) % [place] % (Auto) 7.3 (2-11) % Eos % (Auto) 0.6 (0-4) % Baso % (Auto) 0.1 (0-2) % Lymph # (Auto) 1.2 (1.2-4.9) X10*3/uL [place] # (Auto) 0.5 (0.1-1.2) X10*3/uL Eos # (Auto) 0.0 (0.0-0.4) X10*3/uL Baso # (Auto) 0.0 (0.0-0.2) X10*3/uL Abs Immat Gran (auto) 0.03 (0.00-0.03) X10*3/uL Absolute Neuts (auto) 5.2 (2.0-8.3) x10*3/uL Absolute Nucleated RBC 0.000 (0.0-0.012) X10*3/uL Nucleated RBC % (auto) 0.0 (0.0-0.2) /100WBC PT (10.0-13.1) SEC INR (0.9-1.1) Sodium 139 (135-145) mmol/L Potassium 4.1 (3.3-5.1) mmol/L Chloride 103 (96-108) mmol/L Carbon Dioxide 28 (22-29) mmol/L Anion Gap 12 (12-20) BUN 15 (9-16) mg/dL Creatinine 0.98 (0.5-1.4) mg/dL Estim Creat Clear Calc 76.1 Estimated GFR > 60 Random Glucose 114 (60-115) mg/dL Lactic Acid (0.5-2.0) mmol/L Calcium 9.1 (8.4-10.2) mg/dL Total Bilirubin 0.6 (0.0-1.0) mg/dL Direct Bilirubin 0.3 (0.0-0.5) mg/dL AST 20 (5-37) U/L ALT 28 (0-40) U/L Alkaline Phosphatase 57 (39-117) U/L Total Protein 7.6 (6.5-8.0) g/dL Albumin 4.4 (3.5-5.0) g/dL Urine Color YELLOW Urine Appearance CLOUDY Urine pH 6.0 (5.0-8.0) Ur Specific [place] 1.025 (1.005-1.025) Urine Protein TRACE (NEG-TRACE) MG/DL Urine Glucose (UA) 100 H (NEG) MG/DL Urine Ketones NEG (NEG) MG/DL Urine Blood 3+ H (NEG) Urine Nitrite NEG (NEG) Ur Leukocyte Esterase NEG (NEG) Urine RBC TNTC H (0) /HPF Urine WBC 0 (0-4) /HPF Ur Squamous Epith Cells NONE /LPF Urine Bacteria NONE /LPF 10/03/21 10/03/21 Range/Units 07:54 07:54 WBC (4.8-10.8) X10*3/uL RBC (4.60-5.80) X10*6/uL Hgb (14.0-18.0) g/dl Hct (42.0-52.0) % MCV (80.0-98.0) fL MCH (27.0-33.0) pg MCHC (31.0-36.0) g/dl RDW (11.0-16.0) % Plt Count (160-400) X10*3/uL MPV (9.4-12.4) fL Immature Gran % (Auto) (0.0-0.4) % Neut % (Auto) (45-73) % Lymph % (Auto) (20-40) % [place] % (Auto) (2-11) % Eos % (Auto) (0-4) % Baso % (Auto) (0-2) % Lymph # (Auto) (1.2-4.9) X10*3/uL [place] # (Auto) (0.1-1.2) X10*3/uL Eos # (Auto) (0.0-0.4) X10*3/uL Baso # (Auto) (0.0-0.2) X10*3/uL Abs Immat Gran (auto) (0.00-0.03) X10*3/uL Absolute Neuts (auto) (2.0-8.3) x10*3/uL Absolute Nucleated RBC (0.0-0.012) X10*3/uL Nucleated RBC % (auto) (0.0-0.2) /100WBC PT 12.6 (10.0-13.1) SEC INR 1.1 (0.9-1.1) Sodium (135-145) mmol/L Potassium (3.3-5.1) mmol/L Chloride (96-108) mmol/L Carbon Dioxide (22-29) mmol/L Anion Gap (12-20) BUN (9-16) mg/dL Creatinine (0.5-1.4) mg/dL Estim Creat Clear Calc Estimated GFR Random Glucose (60-115) mg/dL Lactic Acid 1.4 (0.5-2.0) mmol/L Calcium (8.4-10.2) mg/dL Total Bilirubin (0.0-1.0) mg/dL Direct Bilirubin (0.0-0.5) mg/dL AST (5-37) U/L ALT (0-40) U/L Alkaline Phosphatase (39-117) U/L Total Protein (6.5-8.0) g/dL Albumin (3.5-5.0) g/dL Urine Color Urine Appearance Urine pH (5.0-8.0) Ur Specific [place] (1.005-1.025) Urine Protein (NEG-TRACE) MG/DL Urine Glucose (UA) (NEG) MG/DL Urine Ketones (NEG) MG/DL Urine Blood (NEG) Urine Nitrite (NEG) Ur Leukocyte Esterase (NEG) Urine RBC (0) /HPF Urine WBC (0-4) /HPF Ur Squamous Epith Cells /LPF Urine Bacteria /LPF Imaging Data CT scan - abdomen: Radiologist's impression: FINDINGS: LUNG BASES: Minimal left basilar pleural thickening.? LIVER, GALLBLADDER, AND BILIARY TREE: Moderate hepatic steatosis. No intrahepatic biliary dilatation. No focal hepatic mass. The gallbladder is surgically absent.? PANCREAS: Unremarkable.? SPLEEN: Unremarkable.? ADRENAL GLANDS: Unremarkable.? KIDNEYS AND URETERS: There is mild left hydronephrosis. There is mild distention of the left ureter down to the bladder. The previously noted left nephrolith is now not seen. However, there is a 3.5 mm stone in the bladder, just past the left UVJ. There is no evidence for right or left nephrolithiasis or right hydronephrosis. There is a large exophytic cyst projecting off of the posterior mid left kidney at 8.5 cm. BLADDER: Small stone in the bladder just past the left UVJ.? GASTROINTESTINAL TRACT: The small and large bowel are unremarkable. The appendix is unremarkable.? ABDOMINAL WALL: Small bilateral fat-containing inguinal hernias are noted with some induration around the right inguinal hernia. Bowel does not participate. LYMPH NODES: Normal. VASCULAR: The iliac bifurcation is atherosclerotic but nonaneurysmal. PELVIC VISCERA: Unremarkable.? OSSEOUS STRUCTURES: Generative disc disease noted L3-S1. No fracture or destructive process.? CT/CT abdomen pelvis wo con IMPRESSION: Recently passed stone now in the bladder, with resultant left ureteral pyelocaliectasis.? ? Fleischner guidelines were followed. Discharge Plan Discharge Clinical Impression: Ureterolithiasis Patient Disposition: Home, Self-Care Instructions: Ureteral Stones (ED) Additional Instructions: Please follow-up with your primary care physician tomorrow. If you have any worsening or new symptoms, please return to the emergency room or call 911 Prescriptions: New ketorolac 10 mg tablet 10 mg PO BID PRN (Reason: pain) 5 Days Qty: 10 0RF tamsulosin 0.4 mg capsule 0.4 mg PO BEDTIME Qty: 10 0RF ondansetron HCl 4 mg tablet 4 mg PO Q6H PRN (Reason: nausea and vomiting) Qty: 10 0RF prednisone 20 mg tablet 20 mg PO DAILY Qty: 3 0RF No Action cimetidine 200 mg tablet 200 mg PO DAILY Qty: 90 1RF omeprazole 20 mg capsule,delayed release(DR/EC) 20 mg PO DAILY Qty: 90 2RF metformin 500 mg tablet 500 mg PO BID Qty: 180 2RF Trulance 3 mg tablet 3 mg PO DAILY Qty: 30 3RF lisinopril 20 mg tablet 20 mg PO DAILY 90 Days Qty: 90 1RF baclofen 10 mg tablet 10 mg PO BID 10 Days Qty: 20 0RF atorvastatin 40 mg tablet 40 mg PO BEDTIME Qty: 30 1RF lidocaine 5 % adhesive patch,medicated 1 patch topical DAILY PRN (Reason: pain) Qty: 15 0RF Rx Instructions: leave on most painful area for up to 12 hrs loratadine 10 mg tablet 10 mg PO DAILY Qty: 90 2RF (DME) blood pressure monitor [Blood Pressure Kit] Kit See Rx Instructions .Route Qty: 1 0RF Rx Instructions: As directed tizanidine 4 mg tablet 4 mg PO Q8H PRN (Reason: muscle spasms/left low back pain) 10 Days Qty: 30 1RF meloxicam 15 mg tablet 15 mg PO DAILY PRN (Reason: pain) 15 Days Qty: 15 0RF Rx Instructions: TAKE WITH FOOD fluticasone propionate 50 mcg/actuation spray,suspension 1 spray intranasal DAILY ciprofloxacin HCl 500 mg tablet 500 mg PO BID metronidazole 500 mg tablet 500 mg PO BID terazosin 5 mg capsule 5 mg PO BEDTIME 90 Days Qty: 90 1RF dutasteride 0.5 mg capsule 0.5 mg PO DAILY 90 Days Qty: 90 1RF sucralfate [Carafate] 1 gram tablet 1 g PO QNOON Qty: 30 3RF Referrals: Sai Snow MD [Physician] - 1 week
[2021-10-03 07:23] VITALS: BP 168/104; PULSE 79; RESP 14; TEMP 36.8; O2SAT 99
[2021-10-03 08:02] LABS: MANUAL DIFF FLAG NO
[2021-10-03 08:06] LABS: Appearance Urine CLOUDY; Color Urine YELLOW; Glucose Urine UA 100 MG/DL (NEG); Leukocyte Esterase Urine NEG (NEG); Nitrite Urine NEG (NEG); Specific Gravity - Urine 1.025 (1.005-1.025); UACC Culture Trigger NO; Urine Blood 3+ (NEG); Urine Ketones NEG (NEG); Urine Protein TRACE MG/DL (NEG-TRACE)
[2021-10-03 08:09] LABS: INTERNATIONAL NORM RATIO 1.1 (0.9-1.1); Prothrombin Time 12.6 SEC (10.0-13.1)
[2021-10-03 08:12] LABS: RBC Urine TNTC /HPF (0); WBC Urine 0 /HPF (0-4)
[2021-10-03 08:12] LABS: Basophils Percent Auto 0.1 % (0-2); Eosinophils Percent Auto 0.6 % (0-4); Hematocrit 45.2 % (42.0-52.0); Hemoglobin 15.2 g/dl (14.0-18.0); Imm Gran Abs Auto 0.03 X10*3/uL (0.00-0.03); Imm Gran Pct Auto 0.4 % (0.0-0.4); Lymphocytes Absolute Auto 1.2 X10*3/uL (1.2-4.9); Lymphocytes Percent Auto 17.1 % (20-40); Mean Corpuscular HGB Conc 33.6 g/dl (31.0-36.0); Mean Corpuscular Volume 92.1 fL (80.0-98.0); Mean Platelet Volume 11.2 fL (9.4-12.4); Monocytes Absolute Auto 0.5 X10*3/uL (0.1-1.2); Monocytes Percent Auto 7.3 % (2-11); Neutrophils Absolute Auto 5.2 x10*3/uL (2.0-8.3); Neutrophils Percent Auto 74.5 % (45-73); Platelet Count 121 X10*3/uL (160-400); Red Blood Count 4.91 X10*6/uL (4.60-5.80); Red Cell Distribution Width 12.1 % (11.0-16.0)
[2021-10-03 08:20] LABS: Lactic Acid 1.4 mmol/L (0.5-2.0)
[2021-10-03] MEDS: Morphine Sulfate 4 MG/ML CARTRIDGE IVPUSH (08:36)
[2021-10-03] MEDS: ondansetron HCL 4 MG/2 ML VIAL IVPUSH (08:36)
[2021-10-03] MEDS: 0.9 % Sodium Chloride 1,000 ML 999 ML IVCONT (08:37)
[2021-10-03 08:46] LABS: Alanine Aminotransferase 28 U/L (0-40); Albumin Level 4.4 g/dL (3.5-5.0); Alkaline Phosphatase 57 U/L (39-117); Anion Gap 12 (12-20); Aspartate Amino Transferase 20 U/L (5-37); Bilirubin Direct 0.3 mg/dL (0.0-0.5); Bilirubin Total 0.6 mg/dL (0.0-1.0); Blood Urea Nitrogen 15 mg/dL (9-16); Calcium 9.1 mg/dL (8.4-10.2); Carbon Dioxide 28 mmol/L (22-29); Chloride 103 mmol/L (96-108); Creatinine Clr Calc Pharmacy 76.1; Estimated Glomerular Filt Rate > 60; Glucose Random 114 mg/dL (60-115); Potassium 4.1 mmol/L (3.3-5.1); Sodium 139 mmol/L (135-145); Total Protein 7.6 g/dL (6.5-8.0)
[2021-10-03 09:28] VITALS: BP 150/87; PULSE 77; RESP 17; O2SAT 97
[2021-10-03] MEDS: Ketorolac Tromethamine 30 MG/ML VIAL IVPUSH (10:50)
== END 2021-10-03 11:01 | disposition home or self-care (01) ==
PROVIDERS: Emergency Provider Emergency Medicine; PCP Physician Assistant
DX: N20.1 Calculus of ureter (principal); R10.32 Left lower quadrant pain; E11.9 Type 2 diabetes mellitus without complications; E78.5 Hyperlipidemia, unspecified; E66.3 Overweight; Z68.28 Body mass index [BMI] 28.0-28.9, adult; Z79.84 Long term (current) use of oral hypoglycemic drugs; Z79.02 Long term (current) use of antithrombotics/antiplatelets; Z87.442 Personal history of urinary calculi
CPT/HCPCS: 36415; 74176; 80048; 80076; 81001; 83605; 85025; 85610; 87040; 93005; 96361; 96374; 96375; 99284; 99285; J1885; J2270; J2405

== ENCOUNTER 2021-10-09 09:12 | Outpatient (REF) | payer OTHER, SELFPAY ==
--- NOTE | ~2021-10-09 | FL_ITS ---
EXAMINATION: XR UPPER GI SERIES WITH SMALL BOWEL CLINICAL INFORMATION: Abnormal weight loss. COMPARISON: None. TECHNIQUE: KUB was obtained prior to the exam. Thick barium and effervescent granules were administered orally in upright position. Subsequently patient was placed supine and prone and imaging was obtained of the upper GI and small bowel. Sequential images were obtained of small bowel up to further administration of 1 cup of barium following the upper GI study. FINDINGS: Following oral administration of thick barium and effervescent granules there is normal propagation of bolus from the oral cavity through the pharynx into the esophagus without any evidence of obstruction, narrowing or extrinsic compression. On placing patient supine and prone lying, the course, caliber and peristalsis of stomach, duodenal bulb and the sweep is normal. There is mild fragmentation and flocculation of barium in the distal stomach suspicious for increased acidity. There is a small sliding hiatal hernia with mild reflux. Sequential images obtained through the small bowel reveal normal course, caliber and peristalsis of the small bowel loops. There is a normal transit of barium through the small bowel with transit time of less than 90 minutes. FLUOROSCOPY TIME: 2.5 minutes. DOSE AREA PRODUCT: 31.465 uGy-m2 (microgray-meter squared) FL/FL upper GI small bowel IMPRESSION: Moderate gastroesophageal reflux extending to the oral cavity. Rest of the upper GI exam is unremarkable. A normal small bowel follow-through is noted.
== END 2021-10-09 09:13 | disposition home or self-care (01) ==
LOC: HO.XRAY 09:12
PROVIDERS: PCP Physician Assistant; Visit Provider Nurse Practitioner
DX: R63.4 Abnormal weight loss (principal)
CPT/HCPCS: 74240; 74248

== ENCOUNTER → 2021-10-17 11:44 | Outpatient (BNVA) | payer OTHER, SELFPAY | PROVIDERS: PCP Physician Assistant; Visit Provider Nurse Practitioner | DX: K21.9 Gastro-esophageal reflux disease without esophagitis (principal); K90.89 Other intestinal malabsorption; I10 Essential (primary) hypertension; Z79.899 Other long term (current) drug therapy | CPT/HCPCS: 99212 ==

== ENCOUNTER 2021-11-29 07:01 | Outpatient (REF) | payer OTHER, SELFPAY ==
[2021-11-29 07:51] LABS: Hematocrit 46.1 % (42.0-52.0); Hemoglobin 15.2 g/dl (14.0-18.0); Mean Corpuscular Hemoglobin 30.4 pg (27.0-33.0); Mean Corpuscular Volume 92.2 fL (80.0-98.0); Mean Platelet Volume 12.2 fL (9.4-12.4); Platelet Count 119 X10*3/uL (160-400); Red Cell Distribution Width 11.6 % (11.0-16.0); White Blood Count 5.7 X10*3/uL (4.8-10.8)
[2021-11-29 07:59] LABS: Estimated Average Glucose 123 mg/dL; Hemoglobin A1c % 5.9 %
[2021-11-29 08:23] LABS: Alanine Aminotransferase 31 U/L (0-40); Albumin Level 4.2 g/dL (3.5-5.0); Alkaline Phosphatase 49 U/L (39-117); Anion Gap 15 (12-20); Aspartate Amino Transferase 23 U/L (5-37); Bilirubin Total 0.6 mg/dL (0.0-1.0); Blood Urea Nitrogen 20 mg/dL (9-16); Calcium 9.7 mg/dL (8.4-10.2); Carbon Dioxide 28 mmol/L (22-29); Chloride 101 mmol/L (96-108); Estimated Glomerular Filt Rate > 60; Glucose Fasting 94 mg/dL (60-99); Potassium 4.5 mmol/L (3.3-5.1); Sodium 139 mmol/L (135-145)
[2021-11-30 13:31] LABS: Calcium (PTHI) 9.8 mg/dL (8.6-10.3); PTHI 33 pg/mL (16-77)
== END 2021-11-29 07:02 | disposition home or self-care (01) ==
LOC: HO.LAB 07:01
PROVIDERS: PCP Physician Assistant; Visit Provider Physician Assistant
DX: E11.9 Type 2 diabetes mellitus without complications (principal); N20.0 Calculus of kidney
CPT/HCPCS: 36415; 80053; 83036; 83970; 85027

== ENCOUNTER → 2021-12-12 11:39 | Outpatient (BNVA) | payer OTHER, SELFPAY | PROVIDERS: PCP Nurse Practitioner Family; Referring Provider Nurse Practitioner Family; Visit Provider Nurse Practitioner | DX: K90.89 Other intestinal malabsorption (principal); K21.9 Gastro-esophageal reflux disease without esophagitis | CPT/HCPCS: 99212 ==

== ENCOUNTER → 2021-12-13 10:57 | Outpatient (BNVA) | payer OTHER, SELFPAY | PROVIDERS: PCP Physician Assistant; Visit Provider Urology | DX: N20.0 Calculus of kidney (principal); R97.20 Elevated prostate specific antigen [PSA]; N40.0 Benign prostatic hyperplasia without lower urinary tract symptoms; N52.9 Male erectile dysfunction, unspecified; N39.0 Urinary tract infection, site not specified; N48.6 Induration penis plastica | CPT/HCPCS: 51798; 99212 ==

== ENCOUNTER → 2022-01-16 09:34 | Outpatient (BNVA) | payer OTHER, SELFPAY | PROVIDERS: PCP Physician Assistant; Visit Provider Nurse Practitioner | DX: K90.89 Other intestinal malabsorption (principal); K21.9 Gastro-esophageal reflux disease without esophagitis; D12.6 Benign neoplasm of colon, unspecified | CPT/HCPCS: 99212 ==

== ENCOUNTER 2022-03-29 08:04 | Outpatient (REF) | payer OTHER, SELFPAY ==
[2022-03-29 08:41] LABS: Alanine Aminotransferase 44 U/L (0-40); Albumin Level 4.3 g/dL (3.5-5.0); Alkaline Phosphatase 63 U/L (39-117); Anion Gap 15 (12-20); Aspartate Amino Transferase 30 U/L (5-37); Bilirubin Total 0.9 mg/dL (0.0-1.0); Blood Urea Nitrogen 12 mg/dL (9-16); Calcium 9.6 mg/dL (8.4-10.2); Carbon Dioxide 28 mmol/L (22-29); Chloride 102 mmol/L (96-108); Cholesterol 125 mg/dL; Estimated Glomerular Filt Rate > 60; Glucose Fasting 103 mg/dL (60-99); HDL Cholesterol 46 mg/dL; LDL Cholesterol Calculated 57 mg/dl; Potassium 4.7 mmol/L (3.3-5.1); Sodium 140 mmol/L (135-145); Total Protein 7.4 g/dL (6.5-8.0); Triglycerides 110 mg/dL
[2022-03-29 08:50] LABS: Estimated Average Glucose 134 mg/dL; Hemoglobin A1c % 6.3 %
[2022-04-04 20:34] LABS: Parathyroid Hormone Related Pr 7 pg/mL (11-20)
== END 2022-03-29 08:05 | disposition home or self-care (01) ==
LOC: HO.LAB 08:04
PROVIDERS: Urology; PCP Physician Assistant; Visit Provider Nurse Practitioner Family
DX: N20.0 Calculus of kidney (principal); E78.2 Mixed hyperlipidemia; E11.9 Type 2 diabetes mellitus without complications
CPT/HCPCS: 36415; 80053; 80061; 83036; 83519

== ENCOUNTER 2022-04-23 13:48 | Outpatient (REF) | payer OTHER, SELFPAY ==
--- NOTE | ~2022-04-23 | US_ITS ---
EXAMINATION: ULTRASOUND THUMB, RIGHT CLINICAL INFORMATION: Thumb mass increasing in size. COMPARISON: None TECHNIQUE: High-frequency linear ultrasound transducer was used to examine the area of concern in the right thumb. FINDINGS: There is a 1.9 x 1.9 x 1.4 cm hard solid heterogeneous avascular mass seen adjacent to the DIP joint. There is no fluid component. US/US extremity nonvascular avila IMPRESSION: 1.9 x 1.9 x 1.4 cm solid mass adjacent to the DIP joint.
== END 2022-04-23 13:49 | disposition home or self-care (01) ==
LOC: HO.US 13:48
PROVIDERS: Visit Provider Nurse Practitioner Family
DX: R22.31 Localized swelling, mass and lump, right upper limb (principal)
CPT/HCPCS: 76882

== ENCOUNTER → 2022-06-18 09:34 | Outpatient (BNVA) | payer OTHER, SELFPAY | PROVIDERS: PCP Physician Assistant; Visit Provider Nurse Practitioner | DX: Z01.818 Encounter for other preprocedural examination (principal); K90.89 Other intestinal malabsorption; K21.9 Gastro-esophageal reflux disease without esophagitis; D12.6 Benign neoplasm of colon, unspecified; G47.33 Obstructive sleep apnea (adult) (pediatric) | CPT/HCPCS: 99212 ==

== ENCOUNTER 2022-07-11 09:44 | Outpatient (REF) | payer OTHER, SELFPAY | END 2022-07-11 09:45 | disposition home or self-care (01) | LOC: HO.LNP 09:44 | PROVIDERS: Visit Provider Physician Assistant | DX: K21.9 Gastro-esophageal reflux disease without esophagitis (principal) | CPT/HCPCS: 87338 ==

== ENCOUNTER 2022-09-05 13:26 | Emergency (ER) | payer OTHER, SELFPAY ==
[2022-09-05 13:33] VITALS: BP 140/87; PULSE 112; RESP 16; TEMP 37; O2SAT 97; BMI 27.5
--- NOTE | 2022-09-05 13:34 | ED.GENADULT ---
HPI - General Adult General Chief complaint: General Medical Stated complaint: abd pain sore throat headache Time Seen by Provider: 09/05/22 17:13 Source: patient Mode of arrival: ambulatory History of Present Illness HPI narrative: Patient with multiple complaints for last few days complaining of bloating diffuse abdomen pain, nausea vomiting headache sore throat for last few days no fever no urine complaints moving his bowels normal also nasal congestion also Related Data Home Medications Medication Instructions Recorded Confirmed fluticasone propionate 50 1 spray intranasal DAILY 02/06/21 07/10/22 mcg/actuation nasal spray,suspension doxazosin 4 mg tablet 4 mg PO DAILY 06/18/22 07/10/22 multivitamin 1 tab PO DAILY 06/18/22 07/10/22 Previous Rx's Medication Instructions Recorded blood sugar diagnostic (FreeStyle #100 ea 10/04/21 Lite Strips) lancets 28 gauge (FreeStyle #100 ea 10/04/21 Lancets) blood pressure monitor (Blood #1 ea 10/15/21 Pressure Kit) tadalafil 5 mg tablet 5 mg PO DAILY 90 days #90 tabs 11/16/21 meloxicam 15 mg tablet 15 mg PO DAILY PRN pain #14 tabs 11/30/21 terazosin 5 mg capsule 5 mg PO BEDTIME 90 days #90 caps 01/17/22 dutasteride 0.5 mg capsule 0.5 mg PO DAILY 90 days #90 caps 01/24/22 pyridoxine (vitamin B6) 100 mg 100 mg PO DAILY 90 days #90 tabs 04/04/22 tablet metformin 500 mg tablet 500 mg PO BID #180 tabs 04/21/22 loratadine 10 mg tablet 10 mg PO DAILY #90 tabs 05/27/22 atorvastatin 40 mg tablet 40 mg PO BEDTIME 30 days #30 tabs 06/14/22 cimetidine 200 mg tablet 200 mg PO DAILY 90 days #90 tabs 06/18/22 pantoprazole 40 mg tablet,delayed 40 mg PO DAILY 90 days #90 tabs 06/18/22 release (Protonix) peg 3350-electrolytes 236 240 ml PO Q10M 1 day #4,000 mL 06/18/22 gram-22.74 gram-6.74 gram-5.86 gram solution (Golytely) sucralfate 100 mg/mL oral 20 ml PO DAILY #420 mL 06/18/22 suspension (Carafate) ondansetron 4 mg disintegrating 4 mg PO Q6-8H PRN nausea and 09/05/22 tablet vomiting #7 tabs Allergies Allergy/AdvReac Type Severity Reaction Status Date / Time aspirin [ASPIRIN] Allergy Unknown LOW Verified 09/05/22 13:36 PLATELETS finasteride Allergy Unknown lower Verified 09/05/22 13:36 extremity parasthesia tamsulosin AdvReac Intermediate Abdominal Verified 09/05/22 13:36 Pain Review of Systems Review of Systems: Yes all other systems are reviewed and are negative [facility] Past Medical History Medical History Abdominal mass Allergic rhinitis BPH (benign prostatic hyperplasia) BPH loc w urin obs/LUTS Cholecystitis, acute with cholelithiasis Constipation Diabetes Diabetes mellitus Elevated cholesterol Elevated PSA GERD (gastroesophageal reflux disease) Headache Overweight (BMI 25.0-29.9) Pharyngitis Presbyopia Surgical History History of colonoscopy History of inguinal hernia repair, bilateral History of lithotripsy History of local excision of skin lesion History of parathyroidectomy History of prostate surgery S/P laparoscopic cholecystectomy (~06/03/21) Family History Family History Mother No problems noted. Father No problems noted. Social History Social History Household Members: Spouse Housing: House Do you presently have visiting nurse or other home services: No Alcohol intake: never Patient Tobacco Use Status: Never used Tobacco e-Cigarette/Vaping Use: Never Used Second Hand Smoke Exposure: No Advance Directives: No Advance Directives Information Provided: No service: No Current occupational status: employed Cognitive needs: No Hearing needs: No Vision needs: Yes Physical Exam ED Vital Signs: Vital Signs - 24 hr 09/05/22 13:33 09/05/22 17:18 Temperature 98.6 F 98.2 F Pulse Rate 112 H 95 Respiratory Rate 16 16 Blood Pressure 140/87 H 125/76 Pulse Oximetry 97 95 Oxygen Delivery Method Room Air Room Air BMI result Body Mass Index 27.5 Appearance: Alert. Oriented X3. No acute distress. Eyes: PERRLA, No Nystagmus ENT: Pharynx normal. Oral Mucosa moist nares clear no sinus tenderness Neck: Normal inspection. Neck supple. CVS: Normal heart rate and rhythm. Pulses normal. Respiratory: No respiratory distress. Equal air entry bilateral, no wheezing/rales/rhonchi Abdomen: Soft and nontender. Bowel sounds are present, no mass palpable, no CVA tenderness Skin: Skin warm and dry. Normal skin color. Normal skin turgor. Extremities: No lower extremity edema. No calf tenderness Neuro: Oriented X 3. No motor deficit. No sensory deficit.No cerebellar signs , cranial nerves II-XII intact Course Course Course Narrative: This is an RME: Additional HPI, ROS, PE not included below will be deferred to primary provider. 67 yo M hx of DM, HLD, GERD, VIRA presenting to the emergency department w/ complaints of body aches, maliase, hair hurts, headache, sore throat, diffuse abd pain, nausea, vomiting X3 for past two days Plan- labs, ua, viral swabs Medications Administered Discontinued Medications Generic Name Dose Route Start Last Admin Trade Name Freq PRN Reason Stop Dose Admin Dicyclomine HCl 20 mg 09/05/22 18:28 09/05/22 18:51 Dicyclomine Hcl 10 Mg Capsule PO 09/05/22 18:29 20 mg ONCE ONE Administration Ondansetron HCl 4 mg 09/05/22 18:28 09/05/22 18:51 Ondansetron Odt 4 Mg Tab.Rapdis TRANSLINGU 09/05/22 18:29 4 mg ONCE ONE Administration Medical Decision Making Medical Decision Making [facility] Narrative: Patient nonspecific complaints workup negative likely viral discharge patient home on [facility] Lab Data [facility] Lab Attestation statement: I reviewed the patient's lab results. 09/05/22 14:26 09/05/22 14:26 Labs: Lab Results 09/05/22 09/05/22 09/05/22 Range/Units 14:23 14:23 14:23 WBC (4.8-10.8) X10*3/uL RBC (4.60-5.80) X10*6/uL Hgb (14.0-18.0) g/dl Hct (42.0-52.0) % MCV (80.0-98.0) fL MCH (27.0-33.0) pg MCHC (31.0-36.0) g/dl RDW (11.0-16.0) % Plt Count (160-400) X10*3/uL MPV (9.4-12.4) fL Immature Gran % (Auto) (0.0-0.4) % Neut % (Auto) (45-73) % Lymph % (Auto) (20-40) % [place] % (Auto) (2-11) % Eos % (Auto) (0-4) % Baso % (Auto) (0-2) % Lymph # (Auto) (1.2-4.9) X10*3/uL [place] # (Auto) (0.1-1.2) X10*3/uL Eos # (Auto) (0.0-0.4) X10*3/uL Baso # (Auto) (0.0-0.2) X10*3/uL Abs Immat Gran (auto) (0.00-0.03) X10*3/uL Absolute Neuts (auto) (2.0-8.3) x10*3/uL Absolute Nucleated RBC (0.0-0.012) X10*3/uL Nucleated RBC % (auto) (0.0-0.2) /100WBC Sodium (135-145) mmol/L Potassium (3.3-5.1) mmol/L Chloride (96-108) mmol/L Carbon Dioxide (22-29) mmol/L Anion Gap (12-20) BUN (9-16) mg/dL Creatinine (0.5-1.4) mg/dL Estim Creat Clear Calc Estimated GFR Random Glucose (60-115) mg/dL Calcium (8.4-10.2) mg/dL Magnesium (1.6-2.6) mg/dL Total Bilirubin (0.0-1.0) mg/dL AST (5-37) U/L ALT (0-40) U/L Alkaline Phosphatase (39-117) U/L Total Protein (6.5-8.0) g/dL Albumin (3.5-5.0) g/dL Lipase (8-78) U/L COVID-19 (KUMAR) Negative (Negative) COVID-19 Clin Com See Note Influenza Type A (POLO) Negative (Negative) Influenza Type B (POLO) Negative (Negative) Influenza A & B Note See Note S. pyogenes GrpA PLOO Negative (Negative) 09/05/22 09/05/22 Range/Units 14:26 14:26 WBC 7.5 (4.8-10.8) X10*3/uL RBC 5.62 (4.60-5.80) X10*6/uL Hgb 17.4 (14.0-18.0) g/dl Hct 51.6 (42.0-52.0) % MCV 91.8 (80.0-98.0) fL MCH 31.0 (27.0-33.0) pg MCHC 33.7 (31.0-36.0) g/dl RDW 11.5 (11.0-16.0) % Plt Count 121 L (160-400) X10*3/uL MPV 11.6 (9.4-12.4) fL Immature Gran % (Auto) 0.3 (0.0-0.4) % Neut % (Auto) 80.1 H (45-73) % Lymph % (Auto) 10.0 L (20-40) % [place] % (Auto) 9.0 (2-11) % Eos % (Auto) 0.3 (0-4) % Baso % (Auto) 0.3 (0-2) % Lymph # (Auto) 0.8 L (1.2-4.9) X10*3/uL [place] # (Auto) 0.7 (0.1-1.2) X10*3/uL Eos # (Auto) 0.0 (0.0-0.4) X10*3/uL Baso # (Auto) 0.0 (0.0-0.2) X10*3/uL Abs Immat Gran (auto) 0.02 (0.00-0.03) X10*3/uL Absolute Neuts (auto) 6.0 (2.0-8.3) x10*3/uL Absolute Nucleated RBC 0.000 (0.0-0.012) X10*3/uL Nucleated RBC % (auto) 0.0 (0.0-0.2) /100WBC Sodium 138 (135-145) mmol/L Potassium 4.1 (3.3-5.1) mmol/L Chloride 97 (96-108) mmol/L Carbon Dioxide 30 H (22-29) mmol/L Anion Gap 15 (12-20) BUN 13 (9-16) mg/dL Creatinine 0.84 (0.5-1.4) mg/dL Estim Creat Clear Calc 86.7 Estimated GFR > 60 Random Glucose 167 H (60-115) mg/dL Calcium 10.8 H D (8.4-10.2) mg/dL Magnesium 1.7 (1.6-2.6) mg/dL Total Bilirubin 0.7 (0.0-1.0) mg/dL AST 24 (5-37) U/L ALT 38 (0-40) U/L Alkaline Phosphatase 65 (39-117) U/L Total Protein 8.0 (6.5-8.0) g/dL Albumin 4.3 (3.5-5.0) g/dL Lipase 32 (8-78) U/L COVID-19 (KUMAR) (Negative) COVID-19 Clin Com Influenza Type A (POLO) (Negative) Influenza Type B (POLO) (Negative) Influenza A & B Note S. pyogenes GrpA POLO (Negative) Discharge Plan Discharge Clinical Impression: Gastroenteritis Patient Disposition: Home, Self-Care Instructions: Acute Nausea and Vomiting (ED) Additional Instructions: Drink plenty of fluids Medicine for nausea/vomiting as prescribed Follow with PCP as needed Prescriptions: New ondansetron 4 mg tablet,disintegrating 4 mg PO Q6-8H PRN (Reason: nausea and vomiting) Qty: 7 0RF No Action (DME) blood pressure monitor [Blood Pressure Kit] Kit See Rx Instructions .Route Qty: 1 0RF Rx Instructions: As directed tadalafil 5 mg tablet 5 mg PO DAILY 90 Days Qty: 90 1RF terazosin 5 mg capsule 5 mg PO BEDTIME 90 Days Qty: 90 1RF dutasteride 0.5 mg capsule 0.5 mg PO DAILY 90 Days Qty: 90 1RF pyridoxine (vitamin B6) 100 mg tablet 100 mg PO DAILY 90 Days Qty: 90 1RF metformin 500 mg tablet 500 mg PO BID Qty: 180 2RF loratadine 10 mg tablet 10 mg PO DAILY Qty: 90 2RF atorvastatin 40 mg tablet 40 mg PO BEDTIME 30 Days Qty: 30 2RF meloxicam 15 mg tablet 15 mg PO DAILY PRN (Reason: pain) Qty: 14 0RF Rx Instructions: TAKE WITH FOOD (DME) FreeStyle Lite Strips Strip See Rx Instructions .ROUTE .MEDSUPPLY Qty: 100 0RF Rx Instructions: As directed (DME) lancets [FreeStyle Lancets] 28 gauge misc See Rx Instructions .ROUTE .MEDSUPPLY Qty: 100 0RF Rx Instructions: As directed fluticasone propionate 50 mcg/actuation spray,suspension 1 spray intranasal DAILY peg 3350-electrolytes [Golytely] 236-22.74-6.74 -5.86 gram recon soln 240 ml PO Q10M 1 Days Qty: 4000 0RF Rx Instructions: until fecal effluent is clear; do not exceed a total volume of 2,000 mL cimetidine 200 mg tablet 200 mg PO DAILY 90 Days Qty: 90 2RF pantoprazole [Protonix] 40 mg tablet,delayed release (DR/EC) 40 mg PO DAILY 90 Days Qty: 90 1RF doxazosin 4 mg tablet 4 mg PO DAILY multivitamin Tablet 1 tab PO DAILY sucralfate [Carafate] 100 mg/mL suspension 20 ml PO DAILY Qty: 420 6RF Interventions: ED Discharge Assessment Last Done: 09/05/22 19:01 Discharge Date/Time: 09/05/22 19:02
[2022-09-05 14:30] LABS: MANUAL DIFF FLAG NO
[2022-09-05 14:39] LABS: Basophils Percent Auto 0.3 % (0-2); Eosinophils Percent Auto 0.3 % (0-4); Hematocrit 51.6 % (42.0-52.0); Hemoglobin 17.4 g/dl (14.0-18.0); Imm Gran Abs Auto 0.02 X10*3/uL (0.00-0.03); Imm Gran Pct Auto 0.3 % (0.0-0.4); Lymphocytes Absolute Auto 0.8 X10*3/uL (1.2-4.9); Mean Corpuscular HGB Conc 33.7 g/dl (31.0-36.0); Mean Corpuscular Volume 91.8 fL (80.0-98.0); Mean Platelet Volume 11.6 fL (9.4-12.4); Monocytes Absolute Auto 0.7 X10*3/uL (0.1-1.2); Neutrophils Percent Auto 80.1 % (45-73); Platelet Count 121 X10*3/uL (160-400); Red Blood Count 5.62 X10*6/uL (4.60-5.80); Red Cell Distribution Width 11.5 % (11.0-16.0); White Blood Count 7.5 X10*3/uL (4.8-10.8)
[2022-09-05 14:48] LABS: Alanine Aminotransferase 38 U/L (0-40); Albumin Level 4.3 g/dL (3.5-5.0); Alkaline Phosphatase 65 U/L (39-117); Anion Gap 15 (12-20); Aspartate Amino Transferase 24 U/L (5-37); Bilirubin Total 0.7 mg/dL (0.0-1.0); Blood Urea Nitrogen 13 mg/dL (9-16); Calcium 10.8 mg/dL (8.4-10.2); Carbon Dioxide 30 mmol/L (22-29); Chloride 97 mmol/L (96-108); Creatinine Clr Calc Pharmacy 86.7; Estimated Glomerular Filt Rate > 60; Glucose Random 167 mg/dL (60-115); Lipase 32 U/L (8-78); Magnesium 1.7 mg/dL (1.6-2.6); Potassium 4.1 mmol/L (3.3-5.1); Sodium 138 mmol/L (135-145)
[2022-09-05 14:50] LABS: COVID-19 Test Negative (Negative); IDNOW Serial# 55D5AD1C
[2022-09-05 14:54] LABS: IDNOW Serial# 08D9AD1C; IDNOW Serial# BCCEAD1C; Influenza A Negative (Negative); Influenza B2 Negative (Negative); Strep A Nucleic Acid Negative (Negative)
[2022-09-05 17:18] VITALS: BP 125/76; PULSE 95; RESP 16; TEMP 36.8; O2SAT 95
[2022-09-05] MEDS: Ondansetron ODT 4 MG TAB.RAPDIS TRANSLINGU (18:51)
[2022-09-05] MEDS: Dicyclomine HCl 10 MG CAPSULE 20 MG PO (18:51)
== END 2022-09-05 19:02 | disposition home or self-care (01) ==
PROVIDERS: Physician Assistant; Emergency Provider Internal Medicine; PCP Physician Assistant
DX: K52.9 Noninfective gastroenteritis and colitis, unspecified (principal); Z20.822 Contact with and (suspected) exposure to COVID-19; Z20.828 Contact with and (suspected) exposure to other viral communicable diseases; Z79.899 Other long term (current) drug therapy
CPT/HCPCS: 80053; 83690; 83735; 85025; 87502; 87635; 87651; 99283; 99284

== ENCOUNTER 2022-09-20 14:17 | Outpatient (AMB) | payer OTHER, SELFPAY ==
--- NOTE | 2022-09-20 14:20 | A.OFFVIS_ITS ---
Intake Vital Signs 09/20/22 14:21 Height 5 ft 8 in Weight 182 lb 15.739 oz BMI 27.8 BP 110/77 Blood Pressure Location Lt brachial Position Sitting Pulse 63 Intake Visit Reasons: ED follow up Intake Note: Olivier presents in the office as a ED follow up. CC: He states that he is only having a follow up because he was seen in the emergency room. Employee Relations Manager Required: Yes Employee Relations Manager Name: [id number] Semaj Allergies aspirin [ASPIRIN] Allergy (Unknown, Verified 09/20/22 14:23) LOW PLATELETS finasteride Allergy (Unknown, Verified 09/20/22 14:23) lower extremity parasthesia tamsulosin Adverse Reaction (Intermediate, Verified 09/20/22 14:23) Abdominal Pain HPI ED follow up HPI Details Assessment & Plan (1) Bile salt-induced diarrhea: ?Code(s): K90.89 - Other intestinal malabsorption ?Plan: [place] #Alix live He stopped the carafate r/t trouble swallowing it. We will give him the liquid form instead. He denies any other swallowing problems. He is only using the protonix prn and is mostly using the cimetidine. He asks when his next colonoscopy is due, and this is this year. He is quite agreeable to getting this scheduled. There are no prior problems with anesthesia or sedation. He denies any cardiac problems, he has VIRA but states he does use his CPAP because he has never understood well how to utilize the machine. No ID problems. He has a personal history of tubular adenoma. Return office visit in 6 months and of course after the colonoscopy.. (2) GERD (gastroesophageal reflux disease): ?Code(s): K21.9 - Gastro-esophageal reflux disease without esophagitis ?Qualifiers: ?Esophagitis presence:?without esophagitis? Qualified Code(s):?K21.9 - Gastro-esophageal reflux disease without esophagitis (3) Tubular adenoma of colon: ?Comment: 2019 SCOPE repeat 3-5 years ?Code(s): D12.6 - Benign neoplasm of colon, unspecified (4) Pre-op evaluation: ?Code(s): Z01.818 - Encounter for other preprocedural examination (5) VIRA (obstructive sleep apnea): ?Code(s): G47.33 - Obstructive sleep apnea (adult) (pediatric) ? ? ? Medications: New peg 3350-electroly terri 236-22.74-6.74 -5.86 gram (Golyt elan) ?? until feca l effluent is norris r; do not exceed a total volume of 2 ,000 mL 240 mL? PO Q10M 1 day 4,000 mL 0RF Z12.11 - Encounter for screening for malignant neoplas m of colon ? sucralfate (Carafa te) 20 mL? PO DAILY 42 0 mL 6RF K90.89 - Other int estinal malabsorpt ion ? Changed From pantoprazole (Prot giovani) 40 mg? PO DAILY 30 days 30 tabs 6RF K K21.9 - Gastro-eso phageal reflux dis ease without esoph agitis, K90.89 - O ther intestinal ma labsorption ? To pantoprazole (Prot giovani) 40 mg? PO DAILY 90 days 90 tabs 1RF K K21.9 - Gastro-eso phageal reflux dis ease without esoph agitis, K90.89 - O ther intestinal ma labsorption ? Refilled cimetidine 200 mg? PO DAILY 9 0 days 90 tabs 2RF K21.9 - Gastro-eso phageal reflux dis ease without esoph agitis ? COLONOSCOPY BIOPSY REVIEW OF ER NOTES 09/05/2022 Course Course Narrative: This is an RME: Additional HPI, ROS, PE not included below will be deferred to primary provider. 67 yo M hx of DM, HLD, GERD, VIRA presenting to the emergency department w/ complaints of body aches, maliase, hair hurts, headache, sore throat, diffuse abd pain, nausea, vomiting X3 for past two days Discharge Clinical Impression: ?Gastroenteritis Patient Disposition: Home, Self-Care Instructions:? Acute Nausea and Vomiting (ED) Additional Instructions: Drink plenty of fluids Medicine for nausea/vomiting as prescribed Follow with PCP as needed Prescriptions: New ? ondansetron 4 mg tablet,disintegrating ?? 4 mg PO Q6-8H PRN (Reason: nausea and vomiting) Qty: 7 0RF CORRESPONDENCE On 09/06/22 @ 11:20 Beata Chisholm Wrote To Sho It looks like patient was dx'd with gastritis and per note Zofran? was prescribed. patient has upcoming f/u appt on 09/20/22. patient states he did not receive Dicyclomine and is wondering if there would be something you could send to hold him over until the appt. patient very upset because he states that the ED doctor did not understand him. On 09/06/22 @ 11:12 Shanon Pickett Wrote To Sho (3) patient was seen in the ED and said he got medication for everything except pain and he is in a lot of pain. He is asking if you can prescribe something to him to help him until his appointment comes up September 20 TODAY'S VISIT [place] #[id number] Semaj He was seen in the ER for abd pain and diarrhea BUT HE WAS NOT TAKING THE CARAFATE BECAUSE I DIDN'T UNDERSTAND WHAT IT WAS FOR. I explain this is for bile gastritis and diarrhea. Once I explained the medication he agrees that he will try and will see if this actually controls his pain and diarrhea and if not we will titrate or progress to a different medication. He has not been contacted for colonoscopy yet. ROV 4 weeks. PFSH Medical History Abdominal mass Allergic rhinitis BPH (benign prostatic hyperplasia) BPH loc w urin obs/LUTS Cholecystitis, acute with cholelithiasis Constipation Diabetes Diabetes mellitus Elevated cholesterol Elevated PSA GERD (gastroesophageal reflux disease) Headache Overweight (BMI 25.0-29.9) Pharyngitis Presbyopia Surgical History History of colonoscopy History of inguinal hernia repair, bilateral History of lithotripsy History of local excision of skin lesion History of parathyroidectomy History of prostate surgery S/P laparoscopic cholecystectomy (~06/03/21) Family History Mother No problems noted. Father No problems noted. Social History (Reviewed 09/20/22 @ 14: by CATHIE Guillory) Household Members: Spouse Housing: House Do you presently have visiting nurse or other home services: No Alcohol intake: never Patient Tobacco Use Status: Never used Tobacco e-Cigarette/Vaping Use: Never Used Second Hand Smoke Exposure: No service: No Current occupational status: employed Cognitive needs: No Hearing needs: No Vision needs: Yes Review of Systems Const Denies fatigue, Denies fever(s), Denies night sweats, Denies poor appetite, Reports snoring and Denies weight loss ENT Reports Normal hearing present, Denies dental pain, Denies dysphagia, Denies hearing loss, Denies mouth pain, Denies odynophagia, Denies throat swelling, Denies tongue swelling and Reports other (Dentition adequate) Card Reports no additional complaints Resp Reports snoring GI Reports abdominal pain, Denies melena, Denies bloating, Denies hematochezia, Denies constipation, Denies GI cramping, Denies dysphagia, Denies excessive flatus, Denies early satiety, Reports heartburn, Reports diarrhea, Reports nausea, Denies odynophagia, Denies vomiting and Denies hematemesis Skin/Breast Denies pruritus, Denies lesions, Denies rash and Denies jaundice Neuro Reports Normal hearing present and Denies Abnormal speech present Endo Denies fatigue Aller/Immun Denies throat swelling and Denies tongue swelling Physical Exam Vital Signs: Last Vital Signs Pulse 63 09/20/22 14:21 BP 110/77 09/20/22 14:21 BMI result Body Mass Index 27.8 Const General: cooperative, no acute distress, well developed and well groomed Nutritional Appearance: average body habitus and well nourished Orientation/consciousness: oriented to person, oriented to place and oriented to time Limitations: language barrier HEENT Head: Yes normocephalic and Yes atraumatic Eyes General: appearance normal, both eyes and all related structures Pupils: Equal, round and reactive pupils present Neck Neck: Yes normal visual inspection and Yes no lymphadenopathy Thyroid: Thyroid normal Resp Effort & Inspection: normal respiratory effort and able to speak in complete sentences Auscultation: clear to auscultation bilaterally Cardio Rate: regular rate Rhythm: regular rhythm Heart sounds: Normal, physiologic split S2 sound present Peripheral pulses: radial pulses present and posterior tibial pulses present GI Inspection: No distended and No Abdominal panniculus present Palpation (GI): Soft to palpation, nontender, no guarding, not rigid and No hepatosplenomegaly present Percussion: Yes normal to percussion Auscultation: normal bowel sounds Rectal Exam - Male: Yes deferred Skin General skin exam: no rashes or lesions noted, turgor normal, skin not dry, no jaundice, No spider nevi and no striae Rashes: no rashes Nails: normal Neuro General: oriented to person, oriented to place and oriented to time Cranial nerves: Yes Equal, round and reactive pupils present and Yes Normal hearing present Speech: No Abnormal speech present Extrem General: Yes normal to inspection, No clubbing, No cyanosis and No edema Psych Appearance: grossly normal and well kempt Mental Status: mental status grossly normal Speech and movement: Normal speech and movement present Affect: normal affect Attitude: cooperative Thought process: Normal thought process present and not confabulating Thought content: Normal thought content present Insight: Limited insight present (Psych) Judgement: Limited judgement present (Psych) Assessment & Plan Assessment & Plan (1) Bile salt-induced diarrhea: Code(s): K90.89 - Other intestinal malabsorption Plan: [place] #[id number] Semaj He was seen in the ER for abd pain and diarrhea BUT HE WAS NOT TAKING THE CARAFATE BECAUSE I DIDN'T UNDERSTAND WHAT IT WAS FOR. I explain this is for bile gastritis and diarrhea. Once I explained the medication he agrees that he will try and will see if this actually controls his pain and diarrhea and if not we will titrate or progress to a different medication. He has not been contacted for colonoscopy yet. ROV 4 weeks. . COLONOSCOPY BIOPSY (2) GERD (gastroesophageal reflux disease): Code(s): K21.9 - Gastro-esophageal reflux disease without esophagitis Qualifiers: Esophagitis presence: without esophagitis Qualified Code(s): K21.9 - Gastro-esophageal reflux disease without esophagitis Coding Level of Care Code Est Pt Level 3 (69289) Diagnoses Bile salt-induced diarrhea K90.89 GERD (gastroesophageal reflux disease) K21.9 Esophagitis presence: without esophagitis
[2022-09-20 14:21] VITALS: BP 110/77; PULSE 63; BMI 27.8
== END 2022-09-20 15:52 | disposition home or self-care (01) ==
PROVIDERS: PCP Physician Assistant; Visit Provider Nurse Practitioner
DX: K90.89 Other intestinal malabsorption (principal); K21.9 Gastro-esophageal reflux disease without esophagitis
CPT/HCPCS: 99213

== ENCOUNTER → 2022-09-20 14:17 | Outpatient (BNVA) | payer OTHER, SELFPAY | PROVIDERS: PCP Physician Assistant; Visit Provider Nurse Practitioner | DX: K90.89 Other intestinal malabsorption (principal); K21.9 Gastro-esophageal reflux disease without esophagitis | CPT/HCPCS: 99212 ==

== ENCOUNTER 2022-10-18 12:16 | Outpatient (AMB) | payer OTHER, SELFPAY ==
--- NOTE | 2022-10-18 12:20 | A.OFFVIS_ITS ---
Intake Vital Signs 10/18/22 12:25 Height 5 ft 8 in Weight 182 lb 8.684 oz BMI 27.8 BP 142/67 H Blood Pressure Location Lt brachial Position Sitting Pulse 71 Intake Visit Reasons: follow up Intake Note: Olivier presents in office as a est.patient for a f/u PT CC: pt reports bloating , abdominal pain pt denies any other GI Issues Manager Of Selection And Assessment Required: Yes Manager Of Selection And Assessment Language: Lebanese Accompanied by: Self / Same As Patient Allergies aspirin [ASPIRIN] Allergy (Unknown, Verified 10/18/22 12:26) LOW PLATELETS finasteride Allergy (Unknown, Verified 10/18/22 12:26) lower extremity parasthesia tamsulosin Adverse Reaction (Intermediate, Verified 10/18/22 12:26) Abdominal Pain HPI follow up HPI Details Lebanese #[id number] Semaj Razonavneet as seen din the ER for abd pain and diarrhea BUT HE WAS NOT TAKING THE CARAFATE BECAUSE I DIDN'T UNDERSTAND WHAT IT WAS FOR. I explain this is for bile gastritis and diarrhea. He has not been contacted for colonoscopy yet. ROV 4 weeks.? ? Assessment & Plan (1) Bile salt-induced diarrhea: ?Code(s): K90.89 - Other intestinal malabsorption (2) GERD (gastroesophageal reflux disease): ?Code(s): K21.9 - Gastro-esophageal reflux disease without esophagitis ?Qualifiers: ?Esophagitis presence:?without esophagitis? Qualified Code(s):?K21.9 - Gastro-esophageal reflux disease without esophagitis CORRESPONDENCE On 09/06/22 @ 11:20 Beata Chisholm Wrote To It looks like patient was dx'd with gastritis and per note Zofran? was prescribed. patient has upcoming f/u appt on 09/20/22. patient states he did not receive Dicyclomine and is wondering if there would be something you could send to hold him over until the appt. patient very upset because he states that the ED doctor did not understand him. On 09/06/22 @ 11:12 Shanon Pickett Wrote To Sho,June (3) patient was seen in the ED and said he got medication for everything except pain and he is in a lot of pain. He is asking if you can prescribe something to him to help him until his appointment comes up September 20 COLONOSCOPY Scheduled for 11/27 BIOPSY TODAY'S VISIT Lebanese #Sondra Ojeda He is taking the carafate and now his diarrhea is controlled. He does not feel that any dose adjustment is needed. He tells me that his colonoscopy has been scheduled 11/27, but he would like it earlier in the morning than 9:30, so I sent a request to the schedulers. He continues on his protonix qd with good control of his GERD. He is now sat isfied with his GI regimen. He already has an appt 12/11 for scope f/u - but also had a 6 mos appt on 12/18 that we can cancel. [facility] Medical History Abdominal mass Allergic rhinitis BPH (benign prostatic hyperplasia) BPH loc w urin obs/LUTS Cholecystitis, acute with cholelithiasis Constipation Diabetes Diabetes mellitus Elevated cholesterol Elevated PSA GERD (gastroesophageal reflux disease) Headache Overweight (BMI 25.0-29.9) Pharyngitis Presbyopia Surgical History History of colonoscopy History of inguinal hernia repair, bilateral History of lithotripsy History of local excision of skin lesion History of parathyroidectomy History of prostate surgery S/P laparoscopic cholecystectomy (~06/03/21) Family History Mother No problems noted. Father No problems noted. Social History Household Members: Spouse Housing: House Do you presently have visiting nurse or other home services: No Alcohol intake: never Patient Tobacco Use Status: Never used Tobacco e-Cigarette/Vaping Use: Never Used Second Hand Smoke Exposure: No service: No Current occupational status: employed Cognitive needs: No Hearing needs: No Vision needs: Yes Review of Systems Const Denies fatigue, Denies fever(s), Denies night sweats, Denies poor appetite and Reports weight loss (Intentional dieting he stopped eating rice) ENT Reports Normal hearing present, Denies dental pain, Denies dysphagia, Denies hearing loss, Denies mouth pain, Denies odynophagia, Denies throat swelling, Denies tongue swelling and Reports other (Dentition adequate) Card Reports no additional complaints Resp Reports no additional complaints GI Denies abdominal pain, Denies melena, Denies bloating, Denies hematochezia, Denies constipation, Denies GI cramping, Denies dysphagia, Denies excessive flatus, Denies early satiety, Reports heartburn, Reports diarrhea, Denies nausea, Denies odynophagia, Denies vomiting and Denies hematemesis Skin/Breast Denies pruritus, Denies lesions, Denies rash and Denies jaundice Neuro Reports Normal hearing present and Denies Abnormal speech present Endo Denies fatigue Aller/Immun Denies throat swelling and Denies tongue swelling Physical Exam Const General: cooperative, no acute distress, well developed and well groomed Nutritional Appearance: well nourished and obese Orientation/consciousness: oriented to person, oriented to place and oriented to time Limitations: language barrier HEENT Head: Yes normocephalic and Yes atraumatic Eyes General: appearance normal, both eyes and all related structures Pupils: Equal, round and reactive pupils present Neck Neck: Yes normal visual inspection and Yes no lymphadenopathy Thyroid: Thyroid normal Resp Effort & Inspection: normal respiratory effort and able to speak in complete sentences Auscultation: clear to auscultation bilaterally Cardio Rate: regular rate Rhythm: regular rhythm Heart sounds: Normal, physiologic split S2 sound present Peripheral pulses: radial pulses present and posterior tibial pulses present GI Inspection: No distended, No Abdominal panniculus present and Yes obesity Palpation (GI): Soft to palpation, nontender, no guarding, not rigid and No hepatosplenomegaly present Percussion: Yes normal to percussion Auscultation: normal bowel sounds Rectal Exam - Male: Yes deferred Skin General skin exam: no rashes or lesions noted, turgor normal, skin not dry, no jaundice, No spider nevi and no striae Rashes: no rashes Nails: normal Neuro General: oriented to person, oriented to place and oriented to time Cranial nerves: Yes Equal, round and reactive pupils present and Yes Normal hearing present Speech: No Abnormal speech present Extrem General: Yes normal to inspection, No clubbing, No cyanosis and No edema Psych Appearance: grossly normal and well kempt Mental Status: mental status grossly normal Speech and movement: Normal speech and movement present Affect: normal affect Attitude: cooperative Thought process: Normal thought process present and not confabulating Thought content: Normal thought content present Insight: Limited insight present (Psych) Judgement: Limited judgement present (Psych) Assessment & Plan Assessment & Plan (1) Bile salt-induced diarrhea: Code(s): K90.89 - Other intestinal malabsorption Plan: COLONOSCOPY Scheduled for 11/27 BIOPSY TODAY'S VISIT Lebanese #Sondra Ojeda He is taking the carafate and now his diarrhea is controlled. He does not feel that any dose adjustment is needed. He tells me that his colonoscopy has been scheduled 11/27, but he would like it earlier in the morning than 9:30, so I sent a request to the schedulers. He continues on his protonix qd with good control of his GERD. He is now satisfied with his GI regimen. He already has an appt 12/11 for scope f/u - but also had a 6 mos appt on 12/18 that we can cancel. (2) GERD (gastroesophageal reflux disease): Code(s): K21.9 - Gastro-esophageal reflux disease without esophagitis Qualifiers: Esophagitis presence: without esophagitis Qualified Code(s): K21.9 - Gastro-esophageal reflux disease without esophagitis Coding Level of Care Code Est Pt Level 3 (21847) Diagnoses Bile salt-induced diarrhea K90.89 GERD (gastroesophageal reflux disease) K21.9 Esophagitis presence: without esophagitis
[2022-10-18 12:25] VITALS: BP 142/67; PULSE 71; BMI 27.8
== END 2022-10-18 12:46 | disposition home or self-care (01) ==
PROVIDERS: PCP Physician Assistant; Visit Provider Nurse Practitioner
DX: K90.89 Other intestinal malabsorption (principal); K21.9 Gastro-esophageal reflux disease without esophagitis
CPT/HCPCS: 99213

== ENCOUNTER → 2022-10-18 12:16 | Outpatient (BNVA) | payer OTHER, SELFPAY | PROVIDERS: PCP Physician Assistant; Visit Provider Nurse Practitioner | DX: K21.9 Gastro-esophageal reflux disease without esophagitis (principal); K90.89 Other intestinal malabsorption; Z90.49 Acquired absence of other specified parts of digestive tract | CPT/HCPCS: 99212 ==

== ENCOUNTER 2022-10-28 17:33 | Outpatient (REF) | payer OTHER, SELFPAY ==
[2022-10-28 17:44] LABS: Appearance Urine Clear; Color Urine Yellow; Glucose Urine UA Negative (Negative); Leukocyte Esterase Urine Negative (Negative); Nitrite Urine Negative (Negative); PH 5.5 (5.0-9.0); Urine Blood Negative (Negative); Urine Ketones Negative (Negative); Urine Protein Negative (Neg-Trace)
== END 2022-10-28 17:34 | disposition home or self-care (01) ==
LOC: HO.LNP 17:33
PROVIDERS: Visit Provider Physician Assistant
DX: N20.0 Calculus of kidney (principal); R30.0 Dysuria
CPT/HCPCS: 81003

== ENCOUNTER 2022-11-27 08:44 | Day surgery (SDC) | payer OTHER, SELFPAY ==
[2022-11-25 13:19] VITALS: BMI 27.7
--- NOTE | 2022-11-26 12:52 | HO.ANESPROP2 ---
Documented by User: Cherelle Lindsay NP 11/26/22 12:53 HPI - Anesthesia Eval Consult details Narrative: 67yo M for Colonoscopy PMFSH Active Problems Active Problems: All Active Problems (Updated 09/06/22 @ 00:17 by Marcos Dao) Skin lump of arm (Acute) Screening PSA (prostate specific antigen) (Acute) Bile salt-induced diarrhea (Acute) Nephrolithiasis (Acute) Renal cyst, left (Acute) Left-sided low back pain without sciatica (Acute) Low Back Pain (Acute) Weight loss (Acute) Tubular adenoma of colon (Acute) Elevated PSA (Acute) Allergic rhinitis (Acute) Overweight (BMI 25.0-29.9) (Acute) Diabetes mellitus (Acute) Acute cholecystitis (Acute) S/P laparoscopic cholecystectomy (Acute ~06/03/21) Left renal mass (Acute) Colitis (Acute) Peyronie's disease (Acute) Pharyngitis (Acute) Adult general medical exam (Acute) Sleep disorder (Acute) Excessive daytime sleepiness (Acute) Hyperlipidemia (Acute) GERD (gastroesophageal reflux disease) (Acute) VIRA (obstructive sleep apnea) (Acute) Insomnia (Acute) HTN (hypertension) (Acute) Diabetes (Acute) Erectile dysfunction (Acute) BPH loc w urin obs/LUTS (Acute) Past Medical History Medical History Constipation Overweight (BMI 25.0-29.9) Diabetes mellitus Cholecystitis, acute with cholelithiasis Headache Pharyngitis BPH loc w urin obs/LUTS Abdominal mass Presbyopia Allergic rhinitis Elevated PSA BPH (benign prostatic hyperplasia) Elevated cholesterol GERD (gastroesophageal reflux disease) Diabetes Family History Family History Mother No problems noted. Father No problems noted. Family history of problems with anesthesia: No Surgical History Surgical History S/P laparoscopic cholecystectomy (~06/03/21) History of colonoscopy History of local excision of skin lesion History of prostate surgery History of parathyroidectomy History of lithotripsy History of inguinal hernia repair, bilateral History of Problems with Anesthesia: No Social History Social History Household Members: Spouse Housing: House Do you presently have visiting nurse or other home services: No Alcohol intake: never Patient Tobacco Use Status: Never used Tobacco e-Cigarette/Vaping Use: Never Used Second Hand Smoke Exposure: No Are you DNR?: No Advance Directives: No Advance Directives Information Provided: Yes service: No Current occupational status: employed Cognitive needs: No Hearing needs: No Vision needs: Yes Meds Allergies Allergy/AdvReac Type Severity Reaction Status Date / Time aspirin [ASPIRIN] Allergy Unknown LOW Verified 10/18/22 12:26 PLATELETS finasteride Allergy Unknown lower Verified 10/18/22 12:26 extremity parasthesia tamsulosin AdvReac Intermediate Abdominal Verified 10/18/22 12:26 Pain Home Medications Medication Instructions Recorded Confirmed Last Taken Type doxazosin 4 mg tablet 4 mg PO DAILY 06/18/22 07/10/22 Unknown History multivitamin 1 tab PO DAILY 06/18/22 07/10/22 Unknown History dutasteride 0.5 mg capsule 0.5 mg PO DAILY 09/20/22 Unknown History Exam Exam Date and Time: November 26, 2022 1252 Height,Weight and Vital Signs: Height 5 ft 8 in Weight 82.554 kg Pertinent Lab Results Pertinent Lab Results: Laboratory Tests 09/05/22 14:26 WBC 7.5 Hgb 17.4 Hct 51.6 Plt Count 121 L Sodium 138 Potassium 4.1 Chloride 97 Carbon Dioxide 30 H BUN 13 Creatinine 0.84 Assessment and Plan Assessment Anesthesia Assessment: Chart Reviewed Final Anesthetic Review Family History of Problems with Anesthesia: No History of Problems with Anesthesia: No Documented by User: Eleanor Agustin MD 11/27/22 10:04 PMFSH Active Problems Active Problems: All Active Problems (Updated 11/27/22 @ 09:38 by Eleanor Agustin MD) Skin lump of arm (Acute) Screening PSA (prostate specific antigen) (Acute) Bile salt-induced diarrhea (Acute) Nephrolithiasis (Acute) Renal cyst, left (Acute) Left-sided low back pain without sciatica (Acute) Low Back Pain (Acute) Weight loss (Acute) Tubular adenoma of colon (Acute) Elevated PSA (Acute) Allergic rhinitis (Acute) Overweight (BMI 25.0-29.9) (Acute) Diabetes mellitus (Acute) Acute cholecystitis (Acute) S/P laparoscopic cholecystectomy (Acute ~06/03/21) Left renal mass (Acute) Colitis (Acute) Peyronie's disease (Acute) Pharyngitis (Acute) Adult general medical exam (Acute) Sleep disorder (Acute) Excessive daytime sleepiness (Acute) Hyperlipidemia (Acute) GERD (gastroesophageal reflux disease) (Acute) VIRA (obstructive sleep apnea) (Acute). CPAP sometime Insomnia (Acute) HTN (hypertension) (Acute) Diabetes (Acute) Erectile dysfunction (Acute). Has not used tadalafil recently BPH loc w urin obs/LUTS (Acute) Past Medical History Medical History Constipation Overweight (BMI 25.0-29.9) Diabetes mellitus Cholecystitis, acute with cholelithiasis Headache Pharyngitis BPH loc w urin obs/LUTS Abdominal mass Presbyopia Allergic rhinitis Elevated PSA BPH (benign prostatic hyperplasia) Elevated cholesterol GERD (gastroesophageal reflux disease) Diabetes Family History Family History Mother No problems noted. Father No problems noted. Surgical History Surgical History S/P laparoscopic cholecystectomy (~06/03/21) History of colonoscopy History of local excision of skin lesion History of prostate surgery History of parathyroidectomy History of lithotripsy History of inguinal hernia repair, bilateral Social History Social History Household Members: Spouse Housing: House Do you presently have visiting nurse or other home services: No Alcohol intake: never Patient Tobacco Use Status: Never used Tobacco e-Cigarette/Vaping Use: Never Used Second Hand Smoke Exposure: No Are you DNR?: No Advance Directives: No Advance Directives Information Provided: Yes service: No Current occupational status: employed Cognitive needs: No Hearing needs: No Vision needs: Yes Meds Allergies Allergy/AdvReac Type Severity Reaction Status Date / Time aspirin [ASPIRIN] Allergy Unknown LOW Verified 10/18/22 12:26 PLATELETS finasteride Allergy Unknown lower Verified 10/18/22 12:26 extremity parasthesia tamsulosin AdvReac Intermediate Abdominal Verified 10/18/22 12:26 Pain Home Medications Medication Instructions Recorded Confirmed Last Taken Type doxazosin 4 mg tablet 4 mg PO DAILY 06/18/22 07/10/22 Unknown History multivitamin 1 tab PO DAILY 06/18/22 07/10/22 Unknown History dutasteride 0.5 mg capsule 0.5 mg PO DAILY 09/20/22 Unknown History Exam Height,Weight and Vital Signs: Height 5 ft 8 in Weight 82.554 kg Vital Signs Temp Pulse Resp BP Pulse Ox O2 Del Method 11/27/22 09:47 98.8 F 78 20 167/93 H 98 Room Air Pertinent Lab Results Pertinent Lab Results: Laboratory Tests 09/05/22 14:26 WBC 7.5 Hgb 17.4 Hct 51.6 Plt Count 121 L Sodium 138 Potassium 4.1 Chloride 97 Carbon Dioxide 30 H BUN 13 Creatinine 0.84 Lab Results 11/27/22 Range/Units 09:34 POC Glucose 76 (60-115) mg/dL Airway Mallampati Class: III TM Dist: >3cm Neck ROM: Full Loose/Missing/Broken Teeth: No (Denies broken, loose, missing teeth) Heart: RRR Lungs: CTAB Assessment and Plan Assessment Anesthesia Assessment: Anesthesia Plan Discussed Final Anesthetic Review NPO: Yes ASA Class: III Final Preanesthetic Review: No Changes in Pt Med Stat, Meds/Allgs Chart Reviewed, Consent Obtained/Reviewed and Anes Risks/Benef Reviewed Patient Risk: Intermediate Procedure Risk: Low Assessment/Block/Sedation in SS: Assess/Block/Sedation-SS Anesthetic Plan Anesthetic Plan: MAC: Disposition: Standard PACU
[2022-11-27] MEDS: Lactated Ringers 1,000 ML 100 ML IVCONT (09:30)
[2022-11-27 09:38] LABS: Glucose, Whole Blood 76 mg/dL (60-115)
[2022-11-27 09:47] VITALS: BP 167/93; PULSE 78; RESP 20; TEMP 37.1; O2SAT 98
--- NOTE | 2022-11-27 09:54 | PC.NURSE ---
VIRA, uses CPAP at home
--- NOTE | 2022-11-27 10:20 | P.HPSUR_ITS ---
Pre-Procedural Eval Section A Date of Service: 11/27/22 Section B Chief Complaint: hx of colonic polyps Relevant Family History (Specify if Yes): No Relevant Social History: None Present Medications: see Short Stay Collaborative assessment Medical History: Significant History (Constipation Overweight (BMI 25.0-29.9) Diabetes mellitus Cholecystitis, acute with cholelithiasis Headache Pharyngitis BPH loc w urin obs/LUTS Abdominal mass Presbyopia Allergic rhinitis Elevated PSA BPH (benign prostatic hyperplasia) Elevated cholesterol GERD (gastroesophageal reflux disease) Diab) History of Previous Operations: Relevant previous surgery/procedure and date(s) (S/P laparoscopic cholecystectomy (~06/03/21) History of colonoscopy History of local excision of skin lesion History of prostate surgery History of parathyroidectomy History of lithotripsy History of inguinal hernia repair, bilateral) Allergies: Allergies Allergy/AdvReac Type Severity Reaction Status Date / Time aspirin [ASPIRIN] Allergy Unknown LOW Verified 10/18/22 12:26 PLATELETS finasteride Allergy Unknown lower Verified 10/18/22 12:26 extremity parasthesia tamsulosin AdvReac Intermediate Abdominal Verified 10/18/22 12:26 Pain Review of Systems Sugical H&P ROS: Negative: Constitution, Cardiovascular, Respiratory, Neurological, Psychiatric, Hem-Onc, Allergic/Immunologic, Gastrointestinal, Genitourinary, Musculoskeletal, Integumentary, Endocrine and Eyes/Ears/ Nose/Throat Exam Surgical H&P Exam: Normal: HEENT, Normal: Heart, Normal: Lungs, Normal: Extremities, Normal: Abdomen, Normal: Skin and Normal: Neurological Plan Diagnosis/Plan: Unchanged I have reviewed the history and physical and performed a pertinent physical examination on my patient. No changes have occurred unless specified. Time Spent With Patient Time: Total time managing care of this patient today ____ minutes.
--- NOTE | 2022-11-27 10:23 | W.PM.OPN ---
Operative Note Operative Note Date of Service: 11/27/22 Narrative: Operative Information Procedure Description: Colonoscopy Indication: hx of colon polyps Anesthesia: MAC COLONOSCOPY Instrument: Olympus variable stiffness pediatric scope 190L Colonoscopy Monitoring: Vital signs and clinical assessment, continuous EKG monitoring, Pulse oximetry, Carbon Dioxide monitoring and blood pressure monitoring were done throughout the procedure. Colon withdrawal time was 10 minutes. Procedure: The patient was placed in the left lateral decubitis position and pre-procedure medications were administered. After a digital rectal examination of the ano-rectum, the video colonoscope was inserted into the rectum and advanced through the colon to the cecum/TI. The colonoscope was slowly withdrawn in a retrograde panoramic fashion and the colon mucosa was carefully examined including a retroflexed view of the rectum. Findings and interventions are described below. Procedure Difficulty: moderate pressure applied to reach cecum Findings: Terminal Ileum-normal Cecum:normal Ascending Colon: normal Transverse Colon -normal Descending Colon:normal Sigmoid Colon: normal Rectum: Retroflexion with small internal hemorrhoids, grade I Anorectum - normal Colon preparation: Show Low Bowel Preparation Scale Right colon; 1-2 Transverse colon: 2 Left colon; 3 (0 = Unprepared colon segment with mucosa not seen due to solid stool that cannot be cleared. 1 = Portion of mucosa of the colon segment seen, but other areas of the colon segment not well seen due to staining, residual stool and/or opaque liquid. 2 = Minor amount of residual staining, small fragments of stool and/or opaque liquid, but mucosa of colon segment seen well. 3 = Entire mucosa of colon segment seen well with no residual staining, small fragments of stool or opaque liquid) Impression and Post Procedure Diagnosis: internal hemorrhoids Plan: High fiber diet leaflet Avoid straining at stool, epsom salts and sitz bath, anusol supps or cream Repeat Colonoscopy in 5 years due to right sided fair prep or earlier if clinically indicated Above findings were reviewed with the patient and relevant handouts were provided if indicated.
[2022-11-27 11:10] VITALS: BP 153/96; PULSE 75; RESP 16; TEMP 36.1; O2SAT 97
[2022-11-27 11:23] LABS: Glucose, Whole Blood 86 mg/dL (60-115)
[2022-11-27 11:25] VITALS: BP 159/100; PULSE 75; RESP 16; O2SAT 96
== END 2022-11-27 13:34 | disposition home or self-care (01) ==
PROVIDERS: PCP Physician Assistant; Visit Provider Internal Medicine Gastroenterology
PROC: 0DJD8ZZ Inspection of Lower Intestinal Tract, Via Natural or Artificial Opening Endoscopic (ICD-10-PCS; CPT 45378; principal; 2022-11-27 11:00)
DX: K64.0 First degree hemorrhoids (principal); Z86.010 Personal history of colon polyps; K90.89 Other intestinal malabsorption; K21.9 Gastro-esophageal reflux disease without esophagitis; E11.9 Type 2 diabetes mellitus without complications; I10 Essential (primary) hypertension; E78.5 Hyperlipidemia, unspecified; G47.9 Sleep disorder, unspecified; N40.1 Benign prostatic hyperplasia with lower urinary tract symptoms; N28.89 Other specified disorders of kidney and ureter; Z90.49 Acquired absence of other specified parts of digestive tract; Z79.899 Other long term (current) drug therapy
CPT/HCPCS: G0105; 82947

== ENCOUNTER → 2022-11-27 08:44 | Outpatient (BNV) | payer OTHER, SELFPAY | PROVIDERS: PCP Physician Assistant; Visit Provider Internal Medicine Gastroenterology | DX: Z12.11 Encounter for screening for malignant neoplasm of colon (principal); K64.8 Other hemorrhoids; Z86.010 Personal history of colon polyps | CPT/HCPCS: G0105 ==

== ENCOUNTER 2022-12-18 13:31 | Outpatient (AMB) | payer OTHER, SELFPAY ==
--- NOTE | 2022-12-18 13:35 | MHC.OFFVIS ---
Intake Vital Signs 12/18/22 13:36 Height 5 ft 8 in Weight 178 lb 9.191 oz BMI 27.1 BP 128/69 Blood Pressure Location Lt brachial Position Sitting Pulse 75 Intake Visit Reasons: s/p colon- Woodruff Intake Note: Olivier presents in the office as a follow up colonoscopy. CC: He states that he is not having any concerns since this procedure. 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 He does not feel that any dose adjustment is needed. He tells me that his colonoscopy has been scheduled 11/27, but he would like it earlier in the morning than 9:30, so I sent a request to the schedulers. He continues on his protonix qd with good control of his GERD. He is now satisfied with his GI regimen. He already has an appt 12/11 for scope f/u - but also had a 6 mos appt on 12/18 that we can cancel. (2) GERD (gastroesophageal reflux disease): Code(s): K21.9 - Gastro-esophageal reflux disease without esophagitis Qualifiers: Esophagitis presence: without esophagitis Qualified Code(s): K21.9 - Gastro-esophageal reflux disease without esophagitis COLONOSCOPY Findings: Terminal Ileum-normal Cecum:normal Ascending Colon: normal Transverse Colon -normal Descending Colon:normal Sigmoid Colon: normal Rectum: Retroflexion with small internal hemorrhoids, grade I Anorectum - normal Impression and Post Procedure Diagnosis: internal hemorrhoids Plan: High fiber diet leaflet Avoid straining at stool, epsom salts and sitz bath, anusol supps or cream Repeat Colonoscopy in 5 years due to right sided fair prep or earlier if clinically indicated BIOPSY TODAY'S VISIT [place] Jaciel Ojeda The procedure needs to be repeated in 5 years. The procedure was well tolerated. The results were explained and the patient is agreeable to the follow-up interval as stated. The bowel pattern has returned to normal. Education was provided to tell any 1st degree relatives about their findings to be sure that they are screened by age 45. Educated that they will be put on a recall list when it is time for their repeat scope but should they move out of state or away from the hospital they will need to remember along with their primary to repeat the procedure in a timely fashion to avoid any adverse complications. He is taking the carafate and now his diarrhea is controlled. He continues on his protonix qd with good control of his GERD. He is now satisfied with his GI regimen. Return office visit in 6 months. [facility] Medical History Constipation Overweight (BMI 25.0-29.9) Diabetes mellitus Cholecystitis, acute with cholelithiasis Headache Pharyngitis BPH loc w urin obs/LUTS Abdominal mass Presbyopia Allergic rhinitis Elevated PSA BPH (benign prostatic hyperplasia) Elevated cholesterol GERD (gastroesophageal reflux disease) Diabetes Surgical History S/P laparoscopic cholecystectomy (~06/03/21) History of colonoscopy History of local excision of skin lesion History of prostate surgery History of parathyroidectomy History of lithotripsy History of inguinal hernia repair, bilateral Family History Mother No problems noted. Father No problems noted. Social History Household Members: Spouse Housing: House Do you presently have visiting nurse or other home services: No Alcohol intake: never Patient Tobacco Use Status: Never used Tobacco e-Cigarette/Vaping Use: Never Used Second Hand Smoke Exposure: No service: No Current occupational status: employed Cognitive needs: No Hearing needs: No Vision needs: Yes Review of Systems Const Denies fatigue, Denies fever(s), Denies night sweats, Denies poor appetite and Denies weight loss ENT Reports Normal hearing present, Denies dental pain, Denies dysphagia, Denies hearing loss, Denies mouth pain, Denies odynophagia, Denies throat swelling, Denies tongue swelling and Reports other (Dentition adequate) Card Reports no additional complaints Resp Reports no additional complaints GI Denies abdominal pain, Denies melena, Denies bloating, Denies hematochezia, Denies constipation, Denies GI cramping, Denies dysphagia, Denies excessive flatus, Denies early satiety, Reports heartburn, Reports diarrhea, Denies nausea, Denies odynophagia, Denies vomiting and Denies hematemesis Skin/Breast Denies pruritus, Denies lesions, Denies rash and Denies jaundice Neuro Reports Normal hearing present and Denies Abnormal speech present Endo Denies fatigue Aller/Immun Denies throat swelling and Denies tongue swelling Physical Exam Vital Signs: Last Vital Signs Pulse 75 12/18/22 13:36 BP 128/69 12/18/22 13:36 BMI result Body Mass Index 27.1 Const General: cooperative, no acute distress, well developed and well groomed Nutritional Appearance: average body habitus and well nourished Orientation/consciousness: oriented to person, oriented to place and oriented to time Limitations: language barrier HEENT Head: Yes normocephalic and Yes atraumatic Eyes General: appearance normal, both eyes and all related structures Pupils: Equal, round and reactive pupils present Neck Neck: Yes normal visual inspection and Yes no lymphadenopathy Thyroid: Thyroid normal Resp Effort & Inspection: normal respiratory effort and able to speak in complete sentences Auscultation: clear to auscultation bilaterally Cardio Rate: regular rate Rhythm: regular rhythm Heart sounds: Normal, physiologic split S2 sound present Peripheral pulses: radial pulses present and posterior tibial pulses present GI Inspection: No distended and No Abdominal panniculus present Palpation (GI): Soft to palpation, nontender, no guarding, not rigid and No hepatosplenomegaly present Percussion: Yes normal to percussion Auscultation: normal bowel sounds Rectal Exam - Male: Yes deferred Skin General skin exam: no rashes or lesions noted, turgor normal, skin not dry, no jaundice, No spider nevi and no striae Rashes: no rashes Nails: normal Neuro General: oriented to person, oriented to place and oriented to time Cranial nerves: Yes Equal, round and reactive pupils present and Yes Normal hearing present Speech: No Abnormal speech present Extrem General: Yes normal to inspection, No clubbing, No cyanosis and No edema Psych Appearance: grossly normal and well kempt Mental Status: mental status grossly normal Speech and movement: Normal speech and movement present Affect: normal affect Attitude: cooperative Thought process: Normal thought process present and not confabulating Thought content: Normal thought content present Insight: Limited insight present (Psych) Judgement: Limited judgement present (Psych) Assessment & Plan Assessment & Plan (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 The procedure was well tolerated. The results were explained and the patient is agreeable to the follow-up interval as stated. The bowel pattern has returned to normal. Education was provided to tell any 1st degree relatives about their findings to be sure that they are screened by age 45. Educated that they will be put on a recall list when it is time for their repeat scope but should they move out of state or away from the hospital they will need to remember along with their primary to repeat the procedure in a timely fashion to avoid any adverse complications. He is taking the carafate and now his diarrhea is controlled. He continues on his protonix qd with good control of his GERD. He is now satisfied with his GI regimen. Return office visit in 6 months. (2) Tubular adenoma of colon: Comment: 2022= neg scope repeat i 5 years; 2019 SCOPE repeat 3-5 years Code(s): D12.6 - Benign neoplasm of colon, unspecified (3) GERD (gastroesophageal reflux disease): Code(s): K21.9 - Gastro-esophageal reflux disease without esophagitis Qualifiers: Esophagitis presence: without esophagitis Qualified Code(s): K21.9 - Gastro-esophageal reflux disease without esophagitis Medications: Refilled sucralfate 20 mL PO DAILY 420 mL 6RF K90.89 - Other intestinal malabsorption cimetidine 200 mg PO DAILY 90 tabs 2RF 90 days K21.9 - Gastro-esophageal reflux disease without esophagitis dicyclomine 20 mg PO QID 120 tabs 1RF pantoprazole (Protonix) 40 mg PO DAILY 90 tabs 1RF 90 days K21.9 - Gastro-esophageal reflux disease without esophagitis, K90.89 - Other intestinal malabsorption Coding Level of Care Code Est Pt Level 3 (39207) Diagnoses Bile salt-induced diarrhea K90.89 Tubular adenoma of colon D12.6 Gastroesophageal reflux disease without esophagitis K21.9 Esophagitis presence: without esophagitis
[2022-12-18 13:36] VITALS: BP 128/69; PULSE 75; BMI 27.1
== END 2022-12-18 14:09 | disposition home or self-care (01) ==
PROVIDERS: PCP Physician Assistant; Visit Provider Nurse Practitioner
DX: K90.89 Other intestinal malabsorption (principal); D12.6 Benign neoplasm of colon, unspecified; K21.9 Gastro-esophageal reflux disease without esophagitis
CPT/HCPCS: 99213

== ENCOUNTER → 2022-12-18 13:31 | Outpatient (BNVA) | payer OTHER, SELFPAY | PROVIDERS: PCP Physician Assistant; Visit Provider Nurse Practitioner | DX: K90.89 Other intestinal malabsorption (principal); K21.9 Gastro-esophageal reflux disease without esophagitis; D12.6 Benign neoplasm of colon, unspecified | CPT/HCPCS: 99212 ==

== ENCOUNTER 2023-01-10 13:25 | Outpatient (AMB) | payer OTHER, SELFPAY ==
[2023-01-10 13:42] VITALS: BP 142/80; BMI 27.2
--- NOTE | 2023-01-10 13:42 | AM.OFFWIN_ITS ---
Intake Vital Signs 01/10/23 13:42 Height 5 ft 8 in Weight 81.193 kg BMI 27.2 BP 142/80 H Blood Pressure Location Rt brachial Position Sitting Intake Visit Reasons: EST/left ear and jaw pain X 3 weeks (lobby) Intake Note: pt is here for c/o left ear pain and with jaw pain 3 weeks Patient Tobacco Use Status: Never used Tobacco Representative Phlebotomy Services Required: Yes Representative Phlebotomy Services Language: Czech Allergies aspirin [ASPIRIN] Allergy (Unknown, Verified 01/10/23 13:43) LOW PLATELETS finasteride Allergy (Unknown, Verified 01/10/23 13:43) lower extremity parasthesia tamsulosin Adverse Reaction (Intermediate, Verified 01/10/23 13:43) Abdominal Pain Do you need a note to return to daycare/school/sports/work: Yes HPI HPI Comments History of Present Illness Details 1409 67-year-old male history of abdominal ma ss, BPH, constipation, diabetes, GERD, headache presenting w/ L ear pain w/ radiation to l jaw X three weeks not improving. Constant aching pain. No cp, sob, n/v/abd pain, headache, vision changes dizziness, weakness. No head trauma PE w/ ?+ errythematous and bulgging L tm w/ errythema to L ear canal. Normal r ear. No mastoid tenderness b/l. No effusions. Likely otitis media. Unlikely malignant otitis, mastoiditis, otitis externa, tm rupture. Unlikely atypical presentation of ACS, trigeminal neuralgia, temporal arteriris Plan- dc w/ atbx. Educated patient on diagnosis and treatment plan, answered all question, patient verbalizes understanding. At this time patient will be discharged home, advised to return with new or worsening symptoms. Educated on worrisome signs and symptoms and when to return. At this time I feel comfortable discharge home. [facility] Medical History Constipation Overweight (BMI 25.0-29.9) Diabetes mellitus Cholecystitis, acute with cholelithiasis Headache Pharyngitis BPH loc w urin obs/LUTS Abdominal mass Presbyopia Allergic rhinitis Elevated PSA BPH (benign prostatic hyperplasia) Elevated cholesterol GERD (gastroesophageal reflux disease) Diabetes Surgical History S/P laparoscopic cholecystectomy (~06/03/21) History of colonoscopy History of local excision of skin lesion History of prostate surgery History of parathyroidectomy History of lithotripsy History of inguinal hernia repair, bilateral Family History Mother No problems noted. Father No problems noted. Social History Household Members: Spouse Housing: House Do you presently have visiting nurse or other home services: No Alcohol intake: never Patient Tobacco Use Status: Never used Tobacco e-Cigarette/Vaping Use: Never Used Second Hand Smoke Exposure: No service: No Current occupational status: employed Cognitive needs: No Hearing needs: No Vision needs: Yes Review of Systems Const Details: Constitutional : No Weight loss, No Fever, No Chills, No Fatigue, No Malaise ENT/Mouth : No sore throat, No Rhinorrhea, + ear pain Eyes: No Eye Pain, No Swelling, No Redness Cardiovascular : No Chest Pain, No SOB, No Dyspnea on Exertion, No Orthopnea, No Edema, No Palpitations Respiratory : No Cough, No Sputum, No Wheezing Gastrointestinal : No Nausea, No Vomiting, No Diarrhea, No Constipation, No abdominal Pain, No Hematochezia, No Melena Genitourinary : No Dysuria, No Urinary Frequency, No Hematuria, Musculoskeletal : No joint pain, No Myalgias, No Joint Swelling Skin : No Skin Lesions, No rash Neuro : No Weakness, No Numbness, No Dizziness, No Headache Psych : No Anxiety/Panic, No Depression All other systems reviewed and are negative All systems reviewed & are unremarkable except as noted in HPI and below Physical Exam Vital Signs: Last Vital Signs BP 142/80 H 01/10/23 13:42 BMI result Body Mass Index 27.2 vss Appearance: Alert.? Oriented X3.? No acute distress.? Head: Normocephalic, atraumatic, no step-offs or deformities Eyes: Pupils equal, round and reactive to light.? ENT: Pharynx normal.?+ errythematous and bulgging L tm w/ errythema to L ear canal. Normal r ear. No mastoid tenderness b/l. No effusions. Neck: Normal inspection.? Neck supple.? CVS: Normal heart rate and rhythm.? Pulses normal.? Respiratory: No respiratory distress.? Breath sounds normal.? Abdomen: Soft and nontender.? Skin: Skin warm and dry.? Normal skin color.? Normal skin turgor.? Extremities: No lower extremity edema.? No calf ttp. 5/5 strength to bilateral upper and lower extremities Neuro: Oriented X 3.? No motor deficit.? No sensory deficit. CN 2-12 intact Assessment & Plan Assessment & Plan (1) Ear pain, left: Code(s): H92.02 - Otalgia, left ear Plan Take your medications as prescribed. If you were prescribed antibiotics today, it is important that you take your medication to their entirety, do not skip any doses, do not finish them early. Follow-up with your primary care provider this week. Return to the emergency department with new or worsening symptoms. Such as fevers, chills, chest pain, shortness of breath, nausea, vomiting, dizziness, headache, vision changes, lethargy In case of emergency call 911 Medications: New amoxicillin-pot clavulanate 875-125 mg 1 tab PO BID 20 tabs 0RF 10 days ciprofloxacin-dexamethasone 0.3-0.1 % 4 drps otic (ears) BID 7.5 mL 0RF 7 days Coding Level of Care Code Est Pt Level 3 (43671) Diagnoses Ear pain, left H92.02
== END 2023-01-10 15:27 | disposition home or self-care (01) ==
PROVIDERS: PCP Physician Assistant; Visit Provider Physician Assistant
DX: H92.02 Otalgia, left ear (principal)
CPT/HCPCS: 99213

== ENCOUNTER 2023-01-15 16:32 | Emergency (ER) | payer OTHER, SELFPAY ==
--- NOTE | ~2023-01-15 | CT_ITS ---
EXAMINATION: CT HEAD WITHOUT CONTRAST CLINICAL INFORMATION: Headache COMPARISON: None available. TECHNIQUE: Contiguous axial imaging was performed from the skull base to vertex without intravenous administration of contrast. This CT examination was performed using dose optimization techniques as appropriate, variously including the following: *Automated exposure control *Adjustment of mA and/or kV according to patient size (this includes techniques or standardized protocols for targeted exams where dose is matched to indication/reason for exam; i.e. extremities or head) *Use of iterative reconstruction technique DLP: 717 mGy-cm FINDINGS: There is no evidence of an extra-axial collection. There is no evidence of intra-axial or extra-axial hemorrhage. The ventricles and extra-axial CSF spaces are appropriate. Webster-white matter differentiation is normal. No mass, mass effect or infarct. No skull fracture. Heterogeneous attenuation polyps or cysts in both maxillary sinuses. CT/CT head/brain wo IV con IMPRESSION: No acute intracranial pathology. Bilateral maxillary sinus disease.
[2023-01-15 17:02] VITALS: BP 158/87; PULSE 72; RESP 20; TEMP 36.6; O2SAT 96; BMI 28.2
--- NOTE | 2023-01-15 17:29 | ED_ITS ---
HPI - Ear Problem General Chief complaint: Ear Problems Stated complaint: L ear ache Time Seen by Provider: 01/15/23 19:06 History of Present Illness HPI Narrative: patient complains of left ear pain, which was relieved when he took some Motrin just prior to arrival He is being treated for both otitis media and otitis externa with Ciprodex and Augmentin prescribed by primary doctor 4 days ago He denies any fever, he denies any weakness or dizziness, no loss of balance no vomiting no severe headache He also complains of toothache on the left side upper Related Data Home Medications Medication Instructions Recorded Confirmed doxazosin 4 mg tablet 4 mg PO DAILY 06/18/22 07/10/22 multivitamin 1 tab PO DAILY 06/18/22 07/10/22 dutasteride 0.5 mg capsule 0.5 mg PO DAILY 09/20/22 Previous Rx's Medication Instructions Recorded blood sugar diagnostic (FreeStyle #100 ea 10/04/21 Lite Strips) lancets 28 gauge (FreeStyle #100 ea 10/04/21 Lancets) blood pressure monitor (Blood #1 ea 10/15/21 Pressure Kit) tadalafil 5 mg tablet 5 mg PO DAILY 90 days #90 tabs 11/16/21 meloxicam 15 mg tablet 15 mg PO DAILY PRN pain #14 tabs 11/30/21 terazosin 5 mg capsule 5 mg PO BEDTIME 90 days #90 caps 01/17/22 metformin 500 mg tablet 500 mg PO BID #180 tabs 04/21/22 loratadine 10 mg tablet 10 mg PO DAILY #90 tabs 05/27/22 ondansetron 4 mg disintegrating 4 mg PO Q6-8H PRN nausea and 09/05/22 tablet vomiting #7 tabs CPAP (CPAP Machine/Device) #1 ea 09/23/22 pyridoxine (vitamin B6) 100 mg 100 mg PO DAILY 90 days #90 tabs 09/26/22 tablet atorvastatin 40 mg tablet 40 mg PO BEDTIME #90 tabs 12/02/22 cimetidine 200 mg tablet 200 mg PO DAILY 90 days #90 tabs 12/18/22 dicyclomine 20 mg tablet 20 mg PO QID #120 tabs 12/18/22 pantoprazole 40 mg tablet,delayed 40 mg PO DAILY 90 days #90 tabs 12/18/22 release (Protonix) sucralfate 100 mg/mL oral 20 ml PO DAILY #420 mL 12/18/22 suspension amoxicillin 875 mg-potassium 1 tab PO BID 10 days #20 tabs 01/10/23 clavulanate 125 mg tablet ciprofloxacin 0.3 %-dexamethasone 4 drp otic (ears) BID 7 days #7.5 01/10/23 0.1 % ear drops,suspension mL acetaminophen 500 mg tablet 1,000 mg (2 x 500 mg) PO TID PRN 01/15/23 pain #30 tabs Allergies Allergy/AdvReac Type Severity Reaction Status Date / Time aspirin [ASPIRIN] Allergy Unknown LOW Verified 01/10/23 13:43 PLATELETS finasteride Allergy Unknown lower Verified 01/10/23 13:43 extremity parasthesia tamsulosin AdvReac Intermediate Abdominal Verified 01/10/23 13:43 Pain PMFSH Past Medical History Source: nursing notes reviewed Medical History Constipation Overweight (BMI 25.0-29.9) Diabetes mellitus Cholecystitis, acute with cholelithiasis Headache Pharyngitis BPH loc w urin obs/LUTS Abdominal mass Presbyopia Allergic rhinitis Elevated PSA BPH (benign prostatic hyperplasia) Elevated cholesterol GERD (gastroesophageal reflux disease) Diabetes Surgical History S/P laparoscopic cholecystectomy (~06/03/21) History of colonoscopy History of local excision of skin lesion History of prostate surgery History of parathyroidectomy History of lithotripsy History of inguinal hernia repair, bilateral Family History Family History Mother No problems noted. Father No problems noted. Social History Social History Household Members: Spouse Housing: House Do you presently have visiting nurse or other home services: No Alcohol intake: never Patient Tobacco Use Status: Never used Tobacco e-Cigarette/Vaping Use: Never Used Second Hand Smoke Exposure: No Advance Directives: No Advance Directives Information Provided: Yes service: No Current occupational status: employed Cognitive needs: No Hearing needs: No Vision needs: Yes Physical Exam 2 Vital Signs: Vital Signs: Last Vital Signs Temp 97.8 F 01/15/23 18:53 Pulse 76 01/15/23 18:53 Resp 16 01/15/23 19:40 BP 145/86 H 01/15/23 18:53 Pulse Ox 98 01/15/23 18:53 O2 Del Method Room Air 01/15/23 18:53 BMI result Body Mass Index 28.2 general appearance no acute distress The exam he has come and cooperative Right ear tympanic membrane and canal were normal no redness or bulging of tympanic membrane, canal was patent with no erythema The left ear there was some scant whitish debris in the ear canal but the ear canal was not narrowed there was no pain with movement of the ear or pressing on the ear, tympanic membrane was easily visualized and was now white with good light reflex and looked normal there was no redness or bulging of tympanic membrane There is no mastoid redness or tenderness or swelling on either side Dental exam there are many fillings there was no significant tenderness when teeth were tapped, there is no fluctuant abscess there is no trismus no swelling anywhere The pharynx was normal without redness swelling or exudate, membranes moist Neck is supple Respiratory no distress Extremities full range of motion x4 Course Course Course Narrative: This is an RME: Additional HPI, ROS, PE not included below will be deferred to primary provider. This is a 68-year-old male presenting to the ER [facility] complaints of severe left ear pain and headache. Patient was seen at a walk-in clinic on January 10, was diagnosed with otalgia. He was discharged on Augmentin and Ciprodex, which he has been taking without any relief. On examination, left TM without erythema. No mastoid tenderness. Patient has no dental pain. Unclear what is causing his symptoms. He states that he has significant headache, will get labs, CT head Plan: labs, CT head head CT ordered from triage was negative for any acute pathology CV she did not show any white count or any acute abnormality, chemistry no acute abnormalities, glucose was 180 The patient is ear exam showed significant improvement from the note that was written on January 10 when antibiotics were prescribed The patient has no pain now after taking some Motrin His dental exam did not show any dental emergency and he is advised to follow with a dentist For the ear pain he is advised the antibiotics are probably working but if at completion of antibiotics his pain is not resolved he should follow with his primary doctor for possible referral to ENT Well-appearing patient with no significant discomfort now is discharged Medical Decision Making Lab Data 01/15/23 18:10 01/15/23 18:10 Labs: Lab Results 01/15/23 Range/Units 18:10 WBC 5.2 (4.8-10.8) X10*3/uL RBC 4.89 (4.60-5.80) X10*6/uL Hgb 15.1 (14.0-18.0) g/dl Hct 45.7 (42.0-52.0) % MCV 93.5 (80.0-98.0) fL MCH 30.9 (27.0-33.0) pg MCHC 33.0 (31.0-36.0) g/dl RDW 11.7 (11.0-16.0) % Plt Count 120 L (160-400) X10*3/uL MPV 10.9 (9.4-12.4) fL Immature Gran % (Auto) 0.2 (0.0-0.4) % Neut % (Auto) 56.5 (45-73) % Lymph % (Auto) 27.7 (20-40) % [place] % (Auto) 10.5 (2-11) % Eos % (Auto) 4.5 H (0-4) % Baso % (Auto) 0.6 (0-2) % Lymph # (Auto) 1.4 (1.2-4.9) X10*3/uL [place] # (Auto) 0.5 (0.1-1.2) X10*3/uL Eos # (Auto) 0.2 (0.0-0.4) X10*3/uL Baso # (Auto) 0.0 (0.0-0.2) X10*3/uL Abs Immat Gran (auto) 0.01 (0.00-0.03) X10*3/uL Absolute Neuts (auto) 2.9 (2.0-8.3) x10*3/uL Absolute Nucleated RBC 0.000 (0.0-0.012) X10*3/uL Nucleated RBC % (auto) 0.0 (0.0-0.2) /100WBC Sodium 139 (135-145) mmol/L Potassium 4.3 (3.3-5.1) mmol/L Chloride 103 (96-108) mmol/L Carbon Dioxide 29 (22-29) mmol/L Anion Gap 11 L (12-20) BUN 17 H (9-16) mg/dL Creatinine 0.98 (0.5-1.4) mg/dL Estim Creat Clear Calc 74.0 Estimated GFR > 60 Random Glucose 180 H (60-115) mg/dL Calcium 9.4 D (8.4-10.2) mg/dL Total Bilirubin 0.2 (0.0-1.0) mg/dL Direct Bilirubin < 0.2 (0.0-0.5) mg/dL AST 23 (5-37) U/L ALT 38 (0-40) U/L Alkaline Phosphatase 51 (39-117) U/L Total Protein 7.4 (6.5-8.0) g/dL Albumin 4.1 (3.5-5.0) g/dL Discharge Plan Discharge Clinical Impression: Otitis media, Dental caries Patient Disposition: Home, Self-Care Additional Instructions: your left ear which is being treated for infection looks very good now there is no redness on the tympanic membrane and the canal is open and not red and it was not tender, so antibiotics are probably working The note described an obvious infection in there is is no sign of infection now The tooth pain I did not see any abscess but it is very possible there is decay which I cannot see so you need to follow with the dentist Follow with your doctor for re-evaluation of her ear pain if not fully better when you have completed your antibiotics Follow with dentist for the teeth Return any time any worse condition or any concerns Prescriptions: New acetaminophen 500 mg tablet 1,000 mg PO TID PRN (Reason: pain) Qty: 30 0RF No Action (DME) blood pressure monitor [Blood Pressure Kit] Kit See Rx Instructions .Route Qty: 1 0RF Rx Instructions: As directed tadalafil 5 mg tablet 5 mg PO DAILY 90 Days Qty: 90 1RF terazosin 5 mg capsule 5 mg PO BEDTIME 90 Days Qty: 90 1RF metformin 500 mg tablet 500 mg PO BID Qty: 180 2RF loratadine 10 mg tablet 10 mg PO DAILY Qty: 90 2RF (DME) CPAP Machine/Device Device See Rx Instructions .Route Qty: 1 0RF Rx Instructions: As directed pyridoxine (vitamin B6) 100 mg tablet 100 mg PO DAILY 90 Days Qty: 90 1RF atorvastatin 40 mg tablet 40 mg PO BEDTIME Qty: 90 0RF ondansetron 4 mg tablet,disintegrating 4 mg PO Q6-8H PRN (Reason: nausea and vomiting) Qty: 7 0RF meloxicam 15 mg tablet 15 mg PO DAILY PRN (Reason: pain) Qty: 14 0RF Rx Instructions: TAKE WITH FOOD (DME) FreeStyle Lite Strips Strip See Rx Instructions .ROUTE .MEDSUPPLY Qty: 100 0RF Rx Instructions: As directed (DME) lancets [FreeStyle Lancets] 28 gauge misc See Rx Instructions .ROUTE .MEDSUPPLY Qty: 100 0RF Rx Instructions: As directed amoxicillin-pot clavulanate 875-125 mg tablet 1 tab PO BID 10 Days Qty: 20 0RF ciprofloxacin-dexamethasone 0.3-0.1 % drops,suspension 4 drp otic (ears) BID 7 Days Qty: 7.5 0RF doxazosin 4 mg tablet 4 mg PO DAILY multivitamin Tablet 1 tab PO DAILY dutasteride 0.5 mg capsule 0.5 mg PO DAILY pantoprazole [Protonix] 40 mg tablet,delayed release (DR/EC) 40 mg PO DAILY 90 Days Qty: 90 1RF sucralfate 100 mg/mL suspension 20 ml PO DAILY Qty: 420 6RF cimetidine 200 mg tablet 200 mg PO DAILY 90 Days Qty: 90 2RF dicyclomine 20 mg tablet 20 mg PO QID Qty: 120 1RF Interventions: ED Discharge Assessment Last Done: 01/15/23 19:39 Discharge Date/Time: 01/15/23 19:41
[2023-01-15 18:13] LABS: MANUAL DIFF FLAG NO
[2023-01-15 18:20] LABS: Basophils Percent Auto 0.6 % (0-2); Eosinophils Absolute Auto 0.2 X10*3/uL (0.0-0.4); Eosinophils Percent Auto 4.5 % (0-4); Hematocrit 45.7 % (42.0-52.0); Hemoglobin 15.1 g/dl (14.0-18.0); Imm Gran Abs Auto 0.01 X10*3/uL (0.00-0.03); Imm Gran Pct Auto 0.2 % (0.0-0.4); Lymphocytes Absolute Auto 1.4 X10*3/uL (1.2-4.9); Lymphocytes Percent Auto 27.7 % (20-40); Mean Corpuscular Hemoglobin 30.9 pg (27.0-33.0); Mean Corpuscular Volume 93.5 fL (80.0-98.0); Mean Platelet Volume 10.9 fL (9.4-12.4); Monocytes Absolute Auto 0.5 X10*3/uL (0.1-1.2); Monocytes Percent Auto 10.5 % (2-11); Neutrophils Absolute Auto 2.9 x10*3/uL (2.0-8.3); Neutrophils Percent Auto 56.5 % (45-73); Platelet Count 120 X10*3/uL (160-400); Red Blood Count 4.89 X10*6/uL (4.60-5.80); Red Cell Distribution Width 11.7 % (11.0-16.0); White Blood Count 5.2 X10*3/uL (4.8-10.8)
[2023-01-15 18:33] LABS: Alanine Aminotransferase 38 U/L (0-40); Albumin Level 4.1 g/dL (3.5-5.0); Alkaline Phosphatase 51 U/L (39-117); Anion Gap 11 (12-20); Aspartate Amino Transferase 23 U/L (5-37); Bilirubin Direct < 0.2 mg/dL (0.0-0.5); Bilirubin Total 0.2 mg/dL (0.0-1.0); Blood Urea Nitrogen 17 mg/dL (9-16); Calcium 9.4 mg/dL (8.4-10.2); Carbon Dioxide 29 mmol/L (22-29); Chloride 103 mmol/L (96-108); Estimated Glomerular Filt Rate > 60; Glucose Random 180 mg/dL (60-115); Potassium 4.3 mmol/L (3.3-5.1); Sodium 139 mmol/L (135-145); Total Protein 7.4 g/dL (6.5-8.0)
[2023-01-15 18:53] VITALS: BP 145/86; PULSE 76; RESP 16; TEMP 36.6; O2SAT 98
[2023-01-15 19:40] VITALS: RESP 16
== END 2023-01-15 19:41 | disposition home or self-care (01) ==
PROVIDERS: Physician Assistant Medical; Emergency Provider Emergency Medicine; PCP Physician Assistant
DX: H66.92 Otitis media, unspecified, left ear (principal); K02.9 Dental caries, unspecified; R51.9 Headache, unspecified; Z79.899 Other long term (current) drug therapy
CPT/HCPCS: 36415; 70450; 80048; 80076; 85025; 99283; 99284

== ENCOUNTER 2023-01-27 11:54 | Outpatient (AMB) | payer OTHER, SELFPAY ==
[2023-01-27 11:56] VITALS: BP 140/82; PULSE 66; O2SAT 98; BMI 27.7
--- NOTE | 2023-01-27 11:56 | MHC.PC.OV ---
Vital Signs 01/27/23 11:56 Height 5 ft 8 in Weight 182 lb 8 oz BMI 27.7 BP 140/82 H Blood Pressure Location Lt brachial Position Sitting Pulse 66 Pulse Source Pulse Oximeter Pulse Oximetry (%) 98 Oxygen Delivery Method Room Air Intake Visit Reasons: [facility] ED 01/15 pain in ear Engine Service Repairer Required: Yes Engine Service Repairer Language: Burkinan Accompanied by: Self / Same As Patient Allergies aspirin [ASPIRIN] Allergy (Unknown, Verified 01/27/23 12:05) LOW PLATELETS finasteride Allergy (Unknown, Verified 01/27/23 12:05) lower extremity parasthesia tamsulosin Adverse Reaction (Intermediate, Verified 01/27/23 12:05) Abdominal Pain Medication List - Last Reconciled 01/27/23 by Memo Gallo PA-C acetaminophen 1,000 mg (2 x 500 mg) PO TID PRN amoxicillin-pot clavulanate 875-125 mg 1 tab PO BID 10 days atorvastatin 40 mg PO BEDTIME blood pressure monitor (Blood Pressure Kit) As directed blood sugar diagnostic (FreeStyle Lite Strips) As directed cimetidine 200 mg PO DAILY 90 days ciprofloxacin-dexamethasone 0.3-0.1 % 4 drps otic (ears) BID 7 days CPAP (CPAP Machine/Device) As directed dicyclomine 20 mg PO QID doxazosin 4 mg PO DAILY dutasteride 0.5 mg PO DAILY lancets (FreeStyle Lancets) As directed loratadine 10 mg PO DAILY meloxicam 15 mg PO DAILY PRN metformin 500 mg PO BID multivitamin 1 tab PO DAILY ondansetron 4 mg PO Q6-8H PRN pantoprazole (Protonix) 40 mg PO DAILY 90 days pyridoxine (vitamin B6) 100 mg PO DAILY 90 days sucralfate 20 mL PO DAILY tadalafil 5 mg PO DAILY 90 days terazosin 5 mg PO BEDTIME 90 days Tobacco use date assessed: 04/02/22 Fall risk assessment: No Falls in past year Last assessed Fall Risk: 01/27/23 Dental Screening Dental Screen Date: 01/27/23 Did you have a dental visit in the last 12 months?: Yes Did you have a dental problem in the last 6 months where you did not have access to dental care?: No Was dental information given to patient?: Patient has dentist HPI [facility] ED 01/15 pain in ear HPI Details Patient is a 68-year-old male here today for an ED follow-up visit. He was seen at the ED 01/15/2023 for left ear moderate to severe pain. He was given antibiotic ear drops and oral antibiotics which has helped reduce his pain . He denies any hearing issues at of his left ear. CT of head without any intracranial pathology. Has seen his dentist and will be undergoing surgery in near future. He also reports having sneezing fits that do bother his ear as well. He does use loratadine though did not using any nasal sprays. [facility] Medical History Constipation Overweight (BMI 25.0-29.9) Diabetes mellitus Cholecystitis, acute with cholelithiasis Headache Pharyngitis BPH loc w urin obs/LUTS Abdominal mass Presbyopia Allergic rhinitis Elevated PSA BPH (benign prostatic hyperplasia) Elevated cholesterol GERD (gastroesophageal reflux disease) Diabetes Surgical History S/P laparoscopic cholecystectomy (~06/03/21) History of colonoscopy History of local excision of skin lesion History of prostate surgery History of parathyroidectomy History of lithotripsy History of inguinal hernia repair, bilateral Family History Mother No problems noted. Father No problems noted. Social History Household Members: Spouse Housing: House Do you presently have visiting nurse or other home services: No Alcohol intake: never Patient Tobacco Use Status: Never used Tobacco e-Cigarette/Vaping Use: Never Used Second Hand Smoke Exposure: No service: No Current occupational status: employed Cognitive needs: No Hearing needs: No Vision needs: Yes Questionnaire Thrive Questionnaire Date Thrive assessed: 04/02/22 GERTRUDE-7 AMB Questionnaire GERTRUDE-7 Date GERTRUDE - 7 assessed: 04/02/22 Source: Developed by Drs. Samuel Charles, Nickie Duran, Quoc Melendez and colleagues, with an educational maria ines from [employer]. Review of Systems Const Denies headache(s) Eyes Denies loss of vision ENT Denies vertigo, Denies dizziness, Denies headache(s) and Denies sore throat Card Denies chest pain, Denies leg edema and Denies lightheadedness Resp Denies cough, Denies hemoptysis and Denies wheezing GI Denies abdominal pain, Denies melena, Denies constipation, Denies diarrhea and Denies vomiting Denies dysuria, Denies urinary frequency and Denies urinary urgency Musc Denies arthralgias, Denies joint swelling, Denies numbness and Denies tingling Neuro Denies Abnormal speech present, Denies behavioral changes, Denies vertigo, Denies dizziness, Denies headache(s), Denies loss of vision, Denies memory loss, Denies numbness and Denies tingling Psych Denies anxiety, Denies behavioral changes, Denies depression, Denies memory loss and Denies panic attacks Jacek/Lymph Denies easy bleeding and Denies easy bruising Aller/Immun Denies wheezing Physical exam (Primary Care) Vital Signs: Last Vital Signs Pulse 66 01/27/23 11:56 BP 140/82 H 01/27/23 11:56 Pulse Ox 98 01/27/23 11:56 Oxygen Delivery Method Room Air 01/27/23 11:56 BMI result Body Mass Index 27.7 Tobacco/Smoking Status: Tobacco use Status Tobacco use date assessed 04/02/22 01/27/23 11:57 Patient Tobacco Use Status Never used Tobacco 01/27/23 11:57 e-Cigarette/Vaping Use Never Used 01/27/23 11:57 Thrive Assessment: Date of Thrive Assessment Date Thrive assessed 04/02/22 01/27/23 11:57 Const General: healthy appearing, no acute distress, alert and awake Nutritional Appearance: well nourished Orientation/consciousness: oriented to person, oriented to place and oriented to time HENMT Ears: TM's normal bilaterally General nose exam: Normal nasal mucous membranes and turbinates present Teeth image: 1. NOTED DENTAL CARIES, POOR DENTITION IN THIS AREA OUTLINED Eyes Conjunctivae: conjunctivae normal Sclerae: sclerae normal Pupils: Equal, round and reactive pupils present Neck Neck: Yes no lymphadenopathy and Yes no JVD Thyroid: Thyroid normal Carotids: no bruits Resp Effort & Inspection: normal respiratory effort and not tachypneic Auscultation: no crackles, no rales, no rhonchi and no wheezes Cardio Rate: regular rate Rhythm: regular rhythm Heart sounds: no murmurs and normal S1 and S2 GI Palpation (GI): Soft to palpation, nontender, no hepatomegaly and no splenomegaly Auscultation: normal bowel sounds Skin General skin exam: no rashes or lesions noted and dry skin Neuro General: oriented to person, oriented to place and oriented to time Cranial nerves: Yes Equal, round and reactive pupils present Speech: No Abnormal speech present Gait exam (Neuro): Normal gait present Motor exam (neuro): no tremor noted Extrem Right upper extremity: full ROM Left upper extremity: full ROM Right lower extremity: full ROM; no edema Left lower extremity: full ROM; no edema Psych Mental Status: mental status grossly normal Speech and movement: Normal speech and movement present Affect: normal affect Attitude: cooperative Thought process: Normal thought process present Office Procedures Flu Questionnaire Does the patient have a severe egg allergy?: No Does the patient have severe life threatening allergies?: No Does the patient have a fever or illness today?: No Has the patient ever had Guillain-[place] Syndrome?: No Has the patient ever had any past reaction to a flu shot?: No Immunizations flu vacc [id number] 6mos up(PF) 60 mcg(15 mcgx4)/0.5 mL IM syringe Performing Provider: Memo Gallo PA-C [facility] Administered by: LYDIA Ortiz on 01/27/23 12:28 Dose Route Admin Location Dispensed Lot Number Expiration Date NDC [employer] 0.5 mL IM Left Deltoid 0.5 mL [id number] 09/07/23 05662-149-26 Virtual Command VIS Given Date VIS Provided VIS Publication Date 01/27/23 Single Vaccine 20 Eligibility Eligibility Date Funding Source Not [facility] Eligible 01/27/23 Private Assessment and Plan Assessment & Plan (1) Otalgia: Code(s): H92.09 - Otalgia, unspecified ear Qualifiers: Laterality: left Qualified Code(s): H92.02 - Otalgia, left ear Plan: Continues with chronic left ear pain. Has been started on antibiotic ear drops and oral antibiotics which have been helpful. His pain is reported to be and is here and down his left lower jaw. Seems to be more dental related. Will supply patient with pain medication taken a p.r.n. basis. Advised to follow-up with his dentist about evaluating his mouth (2) Dental caries: Code(s): K02.9 - Dental caries, unspecified Plan: As above (3) Allergic rhinitis: Code(s): J30.9 - Allergic rhinitis, unspecified Qualifiers: Allergic rhinitis seasonality: unspecified Allergic rhinitis trigger: other Qualified Code(s): J30.89 - Other allergic rhinitis Plan: Patient does seem to be suffering with allergic rhinitis. Advised on trying new antihistamine Zyrtec and nasal spray. Orders: Orders Influenza [id number] Immunization Today Z23 - Encounter for immunization Medications: New fluticasone propionate 50 mcg/actuation (Flonase Allergy Relief) administer into each nostril 1 spray intranasal BID 30 days 16 grams 3RF J30.89 - Other allergic rhinitis cetirizine 10 mg PO DAILY 90 days 90 tabs 1RF allergy symptoms J30.89 - Other allergic rhinitis acetaminophen-codeine 300-30 mg 1 tab PO BID 7 days PRN 14 tabs 0RF pain H92.02 - Otalgia, left ear Discontinued loratadine Discontinued Reason: Doctor's Order 10 mg PO DAILY 90 tabs 2RF J30.89 - Other allergic rhinitis Coding Level of Care Code Est Pt Level 4 (00501) Diagnoses Left ear pain H92.02 Laterality: left Dental caries K02.9 Allergic rhinitis due to other allergic trigger, unspecified seasonality Allergic rhinitis seasonality: unspecified Allergic rhinitis trigger: other
== END 2023-01-27 12:20 | disposition home or self-care (01) ==
PROVIDERS: PCP Physician Assistant; Visit Provider Physician Assistant
DX: H92.02 Otalgia, left ear (principal); K02.9 Dental caries, unspecified; J30.89 Other allergic rhinitis; Z23 Encounter for immunization
CPT/HCPCS: 90471; 90686; 99214

== ENCOUNTER 2023-05-01 09:09 | Outpatient (REF) | payer MEDICARE, SELFPAY ==
[2023-05-01 10:18] LABS: Hematocrit 48.4 % (42.0-52.0); Hemoglobin 15.9 g/dl (14.0-18.0); Mean Corpuscular HGB Conc 32.9 g/dl (31.0-36.0); Mean Corpuscular Hemoglobin 30.6 pg (27.0-33.0); Mean Corpuscular Volume 93.3 fL (80.0-98.0); Mean Platelet Volume 12.1 fL (9.4-12.4); Platelet Count 116 X10*3/uL (160-400); Red Blood Count 5.19 X10*6/uL (4.60-5.80); Red Cell Distribution Width 11.8 % (11.0-16.0); White Blood Count 5.9 X10*3/uL (4.8-10.8)
[2023-05-01 11:02] LABS: Estimated Average Glucose 134 mg/dL; Hemoglobin A1c % 6.3 % (<6.0)
[2023-05-01 11:14] LABS: Alanine Aminotransferase 27 U/L (0-40); Albumin Level 4.2 g/dL (3.5-5.0); Alkaline Phosphatase 55 U/L (39-117); Anion Gap 13 (12-20); Aspartate Amino Transferase 18 U/L (5-37); Bilirubin Total 0.7 mg/dL (0.0-1.0); Blood Urea Nitrogen 18 mg/dL (9-16); Carbon Dioxide 29 mmol/L (22-29); Chloride 101 mmol/L (96-108); Cholesterol 182 mg/dL (<200); Estimated Glomerular Filt Rate > 60; Glucose Fasting 119 mg/dL (60-99); HDL Cholesterol 63 mg/dL (>40); LDL Cholesterol Calculated 102 mg/dL (<100); Potassium 4.4 mmol/L (3.3-5.1); Sodium 139 mmol/L (135-145); Total Protein 7.6 g/dL (6.5-8.0); Triglycerides 88 mg/dL (<150)
[2023-05-01 11:23] LABS: Creatinine Urine 99.39 mg/dL
== END 2023-05-01 09:10 | disposition home or self-care (01) ==
LOC: HO.LAB 09:09
PROVIDERS: Nurse Practitioner Family; PCP Physician Assistant; Visit Provider Physician Assistant
DX: I10 Essential (primary) hypertension (principal); E11.9 Type 2 diabetes mellitus without complications; E78.2 Mixed hyperlipidemia
CPT/HCPCS: 36415; 80053; 80061; 82043; 82570; 83036; 85027

== ENCOUNTER 2023-05-06 15:38 | Outpatient (AMB) | payer OTHER, SELFPAY ==
--- NOTE | 2023-05-06 15:40 | A.OFFPC_ITS ---
Vital Signs 05/06/23 15:41 Height 5 ft 8 in Weight 183 lb 8 oz BMI 27.9 BP 128/68 Blood Pressure Location Lt brachial Position Sitting Pulse 75 Pulse Source Pulse Oximeter Pulse Oximetry (%) 98 Oxygen Delivery Method Room Air Intake Visit Reasons: f/u HTN/ HLD [employer] Distributor Required: Yes [employer] Distributor Language: Cuban Accompanied by: Self / Same As Patient Allergies aspirin [ASPIRIN] Allergy (Unknown, Verified 05/06/23 15:46) LOW PLATELETS finasteride Allergy (Unknown, Verified 05/06/23 15:46) lower extremity parasthesia tamsulosin Adverse Reaction (Intermediate, Verified 05/06/23 15:46) Abdominal Pain Medication List - Last Reconciled 05/06/23 by Memo Gallo PA-C acetaminophen 1,000 mg (2 x 500 mg) PO TID PRN acetaminophen-codeine 300-30 mg 1 tab PO BID PRN 7 days atorvastatin 40 mg PO BEDTIME blood pressure monitor (Blood Pressure Kit) As directed blood sugar diagnostic (FreeStyle Lite Strips) As directed cetirizine 10 mg PO DAILY 90 days cimetidine 200 mg PO DAILY 90 days ciprofloxacin-dexamethasone 0.3-0.1 % 4 drps otic (ears) BID 7 days CPAP (CPAP Machine/Device) As directed dicyclomine 20 mg PO QID 90 days doxazosin 4 mg PO DAILY dutasteride 0.5 mg PO DAILY fluticasone propionate 50 mcg/actuation (Flonase Allergy Relief) 1 spray intranasal BID 30 days lancets (FreeStyle Lancets) As directed meloxicam 15 mg PO DAILY PRN metformin 500 mg PO BID multivitamin 1 tab PO DAILY ondansetron 4 mg PO Q6-8H PRN pantoprazole (Protonix) 40 mg PO DAILY 90 days pyridoxine (vitamin B6) 100 mg PO DAILY 90 days sucralfate 20 mL PO DAILY tadalafil 5 mg PO DAILY 90 days terazosin 5 mg PO BEDTIME 90 days Tobacco use date assessed: 05/06/23 Fall risk assessment: No Falls in past year Last assessed Fall Risk: 05/06/23 Dental Screening Dental Screen Date: 05/06/23 Did you have a dental visit in the last 12 months?: Yes Did you have a dental problem in the last 6 months where you did not have access to dental care?: No Was dental information given to patient?: Patient has dentist HPI f/u HTN/ HLD HPI Details Patient is a 68-year-old male here today for follow-up visit.? Patient has a past medical history significant for hypertension, type 2 diabetes, GERD BPH, nephrolithiasis .. Hypertension:? Blood pressure today in office acceptable.? Continue him on current dose of doxazosin and lisinopril. .. GERD: Was previously found to have a peptic ulcer on endoscopy. Patient continues on PPI therapy with good effect. He denies any further GI/ epigastric discomforts. Does have Carafate liquid available to him. .. Type 2 diabetes: Continues on metformin 500 mg b.i.d. with good effect. Most recent A1c stable (6.3) .. BPH: Has had elevated PSAs, followed by Urology whom is following his PSAs. He does report some urinary frequency which he attributes to his diabetes as well. [facility] Medical History Constipation Overweight (BMI 25.0-29.9) Diabetes mellitus Cholecystitis, acute with cholelithiasis Headache Pharyngitis BPH loc w urin obs/LUTS Abdominal mass Presbyopia Allergic rhinitis Elevated PSA BPH (benign prostatic hyperplasia) Elevated cholesterol GERD (gastroesophageal reflux disease) Diabetes Surgical History S/P laparoscopic cholecystectomy (~06/03/21) History of colonoscopy History of local excision of skin lesion History of prostate surgery History of parathyroidectomy History of lithotripsy History of inguinal hernia repair, bilateral Family History Mother No problems noted. Father No problems noted. Social History Household Members: Spouse Housing: House Do you presently have visiting nurse or other home services: No Alcohol intake: never Patient Tobacco Use Status: Never used Tobacco e-Cigarette/Vaping Use: Never Used Second Hand Smoke Exposure: No service: No Current occupational status: employed Cognitive needs: No Hearing needs: No Vision needs: Yes Questionnaire PHQ-9 Over the last 2 weeks, how often have you been bothered by any of the following problems? 1. Little interest or pleasure in doing things: not at all 2. Feeling down, depressed, or hopeless: not at all 3. Trouble falling or staying asleep, or sleeping too much: not at all 4. Feeling tired or having little energy: not at all 5. Poor appetite or overeating: not at all 6. Feeling bad about yourself - or that you are a failure or have let yourself or your family down: not at all 7. Trouble concentrating on things, such as reading the newspaper or watching television: not at all 8. Moving or speaking so slowly that other people could have noticed. Or the opposite - being so fidgety or restless that you have been moving around a lot more than usual: not at all 9. Thoughts that you would be better off or of hurting yourself in some way: not at all Total score: 0 Depression Screening Interpretation: Negative Depression Screening Done: Yes 62337 - PHQ-9 Billing: Yes Source: Developed by Drs. Samuel Charles, Nickie Duran, Quoc Melendez and colleagues, with an educational maria ines from [employer]. Thrive Questionnaire Date Thrive assessed: 05/06/23 I am a: Patient What is your living situation today?: I have a steady place to live Within the past 12 months, did the food you bought not last and you didn't have the money to get more?: Never true Within the past 12 months, did you worry whether your food would run out before you got money to buy more?: Never true Do you have trouble paying for medicines?: No Do you have trouble getting transportation to medical appointments?: No Do you have trouble paying your heating and electricity bill?: No Do you have trouble taking care of your child, family member or friend?: No Do you have trouble with day-to-day activities such as bathing, preparing meals, shopping, managing finances, etc.?: No Are you interested in more education?: No Please select the resources that you would like help with: None Currently or been in a relationship where the following occur: no concerns reported THRIVE Score: 0 AUDIT C Alcohol Use Questionnaire (AUDIT-C) 1. How often do you have a drink containing alcohol?: Never 2. How many drinks containing alcohol do you have on a typical day when you are drinking?: 1 or 2 (0) 3. How often do you have six or more drinks on one occasion?: Never Total Score: 0 Score Reviewed/Action Taken: No GERTRUDE-7 AMB Questionnaire GERTRUDE-7 Date GERTRUDE - 7 assessed: 05/06/23 Feeling nervous, anxious, or on edge: 0 = Not at all Not being able to stop or control worryin = Not at all Worrying too much about different things: 0 = Not at all Trouble relaxin = Not at all Being so restless that it is hard to sit still: 0 = Not at all Becoming easily annoyed or irritable: 0 = Not at all Feeling afraid as if something awful might happen: 0 = Not at all Total GERTRUDE-7 score (0-4 normal; 5-9 mild; 10-14 moderate; 15-21 severe): 0 Source: Developed by Drs. Samuel Charles, Nickie Duran, Quoc Melendez and colleagues, with an educational maria ines from [employer]. GERTRUDE-7 Assessment Billing GERTRUDE-7 Assessment Tool: GERTRUDE-7 Assessment 57538 Review of Systems Const Denies headache(s) Eyes Denies loss of vision ENT Denies vertigo, Denies dizziness, Denies headache(s) and Denies sore throat Card Denies chest pain, Denies leg edema and Denies lightheadedness Resp Denies cough, Denies hemoptysis and Denies wheezing GI Denies abdominal pain, Denies melena, Denies constipation, Denies diarrhea and Denies vomiting Denies dysuria, Denies urinary frequency and Denies urinary urgency Musc Denies arthralgias, Denies joint swelling, Denies numbness and Denies tingling Neuro Denies Abnormal speech present, Denies behavioral changes, Denies vertigo, Denies dizziness, Denies headache(s), Denies loss of vision, Denies memory loss, Denies numbness and Denies tingling Psych Denies anxiety, Denies behavioral changes, Denies depression, Denies memory loss and Denies panic attacks Jacek/Lymph Denies easy bleeding and Denies easy bruising Aller/Immun Denies wheezing Physical exam (Primary Care) Vital Signs: Last Vital Signs Pulse 75 05/06/23 15:41 BP 128/68 05/06/23 15:41 Pulse Ox 98 05/06/23 15:41 Oxygen Delivery Method Room Air 05/06/23 15:41 BMI result Body Mass Index 27.9 Tobacco/Smoking Status: Tobacco use Status Tobacco use date assessed 05/06/23 05/06/23 15:46 Patient Tobacco Use Status Never used Tobacco 05/06/23 15:46 e-Cigarette/Vaping Use Never Used 05/06/23 15:46 PHQ-9: PHQ-9 Score PHQ-9: Total score 0 05/06/23 15:47 Depression Screening Interpretation: Negative Thrive Assessment: Date of Thrive Assessment Date Thrive assessed 05/06/23 05/06/23 15:46 Currently or been in a relationship where the following occur: no concerns reported Const General: healthy appearing, no acute distress, alert and awake Nutritional Appearance: well nourished Orientation/consciousness: oriented to person, oriented to place and oriented to time HENMT Ears: TM's normal bilaterally General nose exam: Normal nasal mucous membranes and turbinates present Eyes Conjunctivae: conjunctivae normal Sclerae: sclerae normal Pupils: Equal, round and reactive pupils present Neck Neck: Yes no lymphadenopathy and Yes no JVD Thyroid: Thyroid normal Carotids: no bruits Resp Effort & Inspection: normal respiratory effort and not tachypneic Auscultation: no crackles, no rales, no rhonchi and no wheezes Cardio Rate: regular rate Rhythm: regular rhythm Heart sounds: no murmurs and normal S1 and S2 GI Palpation (GI): Soft to palpation, nontender, no hepatomegaly and no splenomegaly Auscultation: normal bowel sounds Skin General skin exam: no rashes or lesions noted and dry skin Neuro General: oriented to person, oriented to place and oriented to time Cranial nerves: Yes Equal, round and reactive pupils present Speech: No Abnormal speech present Gait exam (Neuro): Normal gait present Motor exam (neuro): no tremor noted Extrem Right upper extremity: full ROM Left upper extremity: full ROM Right lower extremity: full ROM; no edema Left lower extremity: full ROM; no edema Psych Mental Status: mental status grossly normal Speech and movement: Normal speech and movement present Affect: normal affect Attitude: cooperative Thought process: Normal thought process present Assessment and Plan Assessment & Plan (1) Diabetes mellitus: Code(s): E11.9 - Type 2 diabetes mellitus without complications Qualifiers: Diabetes mellitus complication status: without complication Diabetes mellitus skilled nursing insulin use: without high school assistant football coach use Diabetes mellitus type: type 2 Qualified Code(s): E11.9 - Type 2 diabetes mellitus without complications Plan: Patient's type 2 diabetes well controlled with current dose of metformin. Most recent A1c is 6.3. Goal A1c to be below 7.0 (2) HTN (hypertension): Code(s): I10 - Essential (primary) hypertension Qualifiers: Hypertension type: essential hypertension Qualified Code(s): I10 - Essential (primary) hypertension Plan: Patient's blood pressure acceptable today in office will continue current antihypertensive medication with goal blood pressure to be below 140/90 (3) GERD (gastroesophageal reflux disease): Code(s): K21.9 - Gastro-esophageal reflux disease without esophagitis Qualifiers: Esophagitis presence: without esophagitis Qualified Code(s): K21.9 - Gastro-esophageal reflux disease without esophagitis Plan: History of peptic ulcer disease. Patient continues on long-term PPI therapy Patient reports his GERD symptoms have been stable. Does use antacid medication on a daily basis with good. (4) Hyperlipidemia: Code(s): E78.5 - Hyperlipidemia, unspecified Qualifiers: Hyperlipidemia type: mixed hyperlipidemia Qualified Code(s): E78.2 - Mixed hyperlipidemia Plan: Patient continues on statin therapy without side effect. Most recent lipid panel showing appropriate total cholesterol and LDL. Goal LDL to be below 100. (5) BPH loc w urin obs/LUTS: Code(s): N40.1 - Benign prostatic hyperplasia with lower urinary tract symptoms Plan: Patient's history BPH. Has no further follow-up with Urology. Continues on doxazosin. (6) Borderline high cholesterol: Code(s): E78.9 - Disorder of lipoprotein metabolism, unspecified Plan: Patient has a history of high cholesterol. Continues to manage diet and lifestyle. Goal LDL to be below 100. Orders: Orders Comprehensive [place]. Panel Fast 05/06/23 E11.9 - Type 2 diabetes mellitus without complications Complete Blood Count no Diff 05/06/23 K21.9 - Gastro-esophageal reflux disease without esophagitis Lipid Panel 05/06/23 E78.9 - Disorder of lipoprotein metabolism, unspecified Prostate Specific Antigen Scr 05/06/23 R97.20 - Elevated prostate specific antigen [PSA], Z12.5 - Encounter for screening for malignant neoplasm of prostate Hemoglobin A1c 05/06/23 E11.9 - Type 2 diabetes mellitus without complications Medications: Discontinued ciprofloxacin-dexamethasone 0.3-0.1 % Discontinued Reason: Doctor's Order 4 drps otic (ears) BID 7 days 7.5 mL 0RF Coding Level of Care Code Est Pt Level 4 (98434) Diagnoses Type 2 diabetes mellitus without complication, without long-term current use of insulin E11.9 Diabetes mellitus complication status: without complication 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
[2023-05-06 15:41] VITALS: BP 128/68; PULSE 75; O2SAT 98; BMI 27.9
== END 2023-05-06 15:56 | disposition home or self-care (01) ==
PROVIDERS: PCP Physician Assistant; Visit Provider Physician Assistant
DX: E11.9 Type 2 diabetes mellitus without complications (principal); I10 Essential (primary) hypertension; K21.9 Gastro-esophageal reflux disease without esophagitis; E78.2 Mixed hyperlipidemia; N40.1 Benign prostatic hyperplasia with lower urinary tract symptoms; E78.9 Disorder of lipoprotein metabolism, unspecified
CPT/HCPCS: 99214

== ENCOUNTER 2023-07-11 12:26 | Outpatient (AMB) | payer MEDICARE, SELFPAY ==
--- NOTE | 2023-07-11 12:28 | A.OFFVIS_ITS ---
Vital Signs 07/11/23 12:46 Height 5 ft 8 in Weight 182 lb 15.739 oz BMI 27.8 BP 138/74 Blood Pressure Location Lt brachial Position Sitting Pulse 65 Intake Visit Reasons: F/U IBS and GERD Intake Note: Olivier presents in the office as a follow up for IBS and GERD. CC: He states that he wants to know if there are any interactions between the medications - is is okay for him to take all at once? 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 The procedure was well tolerated. The results were explained and the patient is agreeable to the follow-up interval as stated. The bowel pattern has returned to normal. Education was provided to tell any 1st degree relatives about their findings to be sure that they are screened by age 45. Educated that they will be put on a recall list when it is time for their repeat scope but should they move out of state or away from the hospital they will need to remember along with their primary to repeat the procedure in a timely fashion to avoid any adverse complications. He is taking the carafate and now his diarrhea is controlled. He continues on his protonix qd with good control of his GERD. He is now satisfied with his GI regimen. Return office visit in 6 months. (2) Tubular adenoma of colon: Comment: 2022= neg scope repeat i 5 years; 2019 SCOPE repeat 3-5 years Code(s): D12.6 - Benign neoplasm of colon, unspecified (3) GERD (gastroesophageal reflux disease): Code(s): K21.9 - Gastro-esophageal reflux disease without esophagitis Qualifiers: Esophagitis presence: without esophagitis Qualified Code(s): K21.9 - Gastro-esophageal reflux disease without esophagitis Medications: Refilled sucralfate 20 mL PO DAILY 420 mL 6RF K90.89 - Other intestinal malabsorption cimetidine 200 mg PO DAILY 90 tabs 2RF 90 days K21.9 - Gastro-esophageal reflux disease without esophagitis dicyclomine 20 mg PO QID 120 tabs 1RF pantoprazole (Protonix) 40 mg PO DAILY 90 tabs 1RF 90 days K21.9 - Gastro- esophageal reflux disease without esophagitis, K90.89 - Other intestinal malabsorption TODAY'S VISIT Kinyarwanda #[id number] Shawn He is taking the carafate and now his diarrhea is controlled. He continues on hi s protonix qd with good control of his GERD. He is now satisfied with his GI regimen Return office visit in 6 months [facility] Medical History Tubular adenoma of colon Borderline high cholesterol Screening PSA (prostate specific antigen) Adult general medical exam Constipation Overweight (BMI 25.0-29.9) Headache BPH loc w urin obs/LUTS Abdominal mass Presbyopia Allergic rhinitis Elevated PSA BPH (benign prostatic hyperplasia) Elevated cholesterol GERD (gastroesophageal reflux disease) Surgical History S/P laparoscopic cholecystectomy (~06/03/21) History of colonoscopy History of local excision of skin lesion History of prostate surgery History of parathyroidectomy History of lithotripsy History of inguinal hernia repair, bilateral Family History Mother No problems noted. Father No problems noted. Social History Household Members: Spouse Housing: House Do you presently have visiting nurse or other home services: No Alcohol intake: never Patient Tobacco Use Status: Never used Tobacco e-Cigarette/Vaping Use: Never Used Second Hand Smoke Exposure: No service: No Current occupational status: employed Cognitive needs: No Hearing needs: No Vision needs: Yes Review of Systems Const Denies fatigue, Denies fever(s), Denies night sweats, Denies poor appetite and Denies weight loss ENT Reports Normal hearing present, Denies dental pain, Denies dysphagia, Denies hearing loss, Denies mouth pain, Denies odynophagia, Denies throat swelling, Denies tongue swelling and Reports other (Dentition adequate) Card Reports no additional complaints Resp Reports no additional complaints GI Details: Denies abdominal pain, Denies melena, Denies bloating, Denies hematochezia, Denies constipation, Denies GI cramping, Denies dysphagia, Denies excessive flatus, Denies early satiety, Reports heartburn, Reports diarrhea, Denies nausea, Denies odynophagia, Denies vomiting and Denies hematemesis Skin/Breast Denies pruritus, Denies lesions, Denies rash and Denies jaundice Neuro Reports Normal hearing present and Denies Abnormal speech present Endo Denies fatigue Aller/Immun Denies throat swelling and Denies tongue swelling Physical Exam Vital Signs: Last Vital Signs Pulse 65 07/11/23 12:46 BP 138/74 07/11/23 12:46 BMI result Body Mass Index 27.8 Const General: cooperative, no acute distress, well developed and well groomed Nutritional Appearance: average body habitus and well nourished Orientation/consciousness: oriented to person, oriented to place and oriented to time Limitations: language barrier HEENT Head: Yes normocephalic and Yes atraumatic Eyes General: appearance normal, both eyes and all related structures Pupils: Equal, round and reactive pupils present Neck Neck: Yes normal visual inspection and Yes no lymphadenopathy Thyroid: Thyroid normal Resp Effort & Inspection: normal respiratory effort and able to speak in complete sentences Auscultation: clear to auscultation bilaterally Cardio Rate: regular rate Rhythm: regular rhythm Heart sounds: Normal, physiologic split S2 sound present Peripheral pulses: radial pulses present and posterior tibial pulses present GI Inspection: No distended and No Abdominal panniculus present Palpation (GI): Soft to palpation, nontender, no guarding, not rigid and No hepatosplenomegaly present Percussion: Yes normal to percussion Auscultation: normal bowel sounds Rectal Exam - Male: Yes deferred Skin General skin exam: no rashes or lesions noted, turgor normal, skin not dry, no jaundice, No spider nevi and no striae Rashes: no rashes Nails: normal Neuro General: oriented to person, oriented to place and oriented to time Cranial nerves: Yes Equal, round and reactive pupils present and Yes Normal hearing present Speech: No Abnormal speech present Extrem General: Yes normal to inspection, No clubbing, No cyanosis and No edema Psych Appearance: grossly normal and well kempt Mental Status: mental status grossly normal Speech and movement: Normal speech and movement present Affect: normal affect Attitude: cooperative Thought process: Normal thought process present and not confabulating Thought content: Normal thought content present Insight: Limited insight present (Psych) Judgement: Limited judgement present (Psych) Assessment & Plan Assessment & Plan (1) GERD (gastroesophageal reflux disease): Code(s): K21.9 - Gastro-esophageal reflux disease without esophagitis Category: Medical Qualifiers: Esophagitis presence: without esophagitis Qualified Code(s): K21.9 - Gastro-esophageal reflux disease without esophagitis (2) Bile salt-induced diarrhea: Code(s): K90.89 - Other intestinal malabsorption Category: Medical Plan Kinyarwanda #[id number] Shawn He is taking the carafate and now his diarrhea is controlled. He continues on his protonix qd with good control of his GERD. He is now satisfied with his GI regimen Return office visit in 6 months Medications: Refilled cimetidine 200 mg PO DAILY 90 tabs 2RF 90 days K21.9 - Gastro-esophageal reflux disease without esophagitis pantoprazole (Protonix) 40 mg PO DAILY 90 tabs 1RF 90 days K21.9 - Gastro- esophageal reflux disease without esophagitis, K90.89 - Other intestinal malabsorption sucralfate 20 mL PO DAILY 420 mL 6RF K90.89 - Other intestinal malabsorption dicyclomine 20 mg PO QID 360 tabs 3RF 90 days Coding Level of Care Code Est Pt Level 3 (11200) Diagnoses Gastroesophageal reflux disease without esophagitis K21.9 Esophagitis presence: without esophagitis Bile salt-induced diarrhea K90.89
[2023-07-11 12:46] VITALS: BP 138/74; PULSE 65; BMI 27.8
== END 2023-07-11 13:23 | disposition home or self-care (01) ==
PROVIDERS: PCP Physician Assistant; Visit Provider Nurse Practitioner
DX: K21.9 Gastro-esophageal reflux disease without esophagitis (principal); K90.89 Other intestinal malabsorption
CPT/HCPCS: 99213

== ENCOUNTER → 2023-07-11 12:26 | Outpatient (BNVA) | payer MEDICARE, SELFPAY | PROVIDERS: PCP Physician Assistant; Visit Provider Nurse Practitioner | DX: K21.9 Gastro-esophageal reflux disease without esophagitis (principal); K90.89 Other intestinal malabsorption; Z79.899 Other long term (current) drug therapy | CPT/HCPCS: 99212 ==

== ENCOUNTER 2023-10-08 11:46 | Outpatient (REF) | payer MEDICARE, SELFPAY ==
[2023-10-08 13:28] LABS: Hemoglobin 14.9 g/dl (14.0-18.0); Mean Corpuscular HGB Conc 33.1 g/dl (31.0-36.0); Mean Corpuscular Hemoglobin 30.8 pg (27.0-33.0); Mean Corpuscular Volume 93.2 fL (80.0-98.0); Mean Platelet Volume 11.4 fL (9.4-12.4); Platelet Count 155 X10*3/uL (160-400); Red Blood Count 4.83 X10*6/uL (4.60-5.80); Red Cell Distribution Width 11.5 % (11.0-16.0); White Blood Count 5.2 X10*3/uL (4.8-10.8)
[2023-10-08 13:30] LABS: Appearance Urine Clear; Color Urine Dark Yellow; Glucose Urine UA Negative (Negative); Leukocyte Esterase Urine Trace (Negative); Nitrite Urine Negative (Negative); PH 5.5 (5.0-9.0); Specific Gravity - Urine >= 1.030 (1.005-1.025); UMIC TRIGGER UACC YES; Urine Blood Small (1+) (Negative); Urine Ketones Trace mg/dL (Negative); Urine Protein 30 (1+) mg/dL (Neg-Trace)
[2023-10-08 14:05] LABS: Alanine Aminotransferase 22 U/L (0-40); Alkaline Phosphatase 53 U/L (39-117); Anion Gap 12 (12-20); Aspartate Amino Transferase 20 U/L (5-37); Bilirubin Total 0.7 mg/dL (0.0-1.0); Blood Urea Nitrogen 13 mg/dL (9-16); Calcium 9.3 mg/dL (8.4-10.2); Carbon Dioxide 27 mmol/L (22-29); Chloride 104 mmol/L (96-108); Cholesterol 181 mg/dL (<200); Estimated Glomerular Filt Rate > 60; Glucose Fasting 164 mg/dL (60-99); HDL Cholesterol 48 mg/dL (>40); LDL Cholesterol Calculated 122 mg/dL (<100); Potassium 3.9 mmol/L (3.3-5.1); Sodium 139 mmol/L (135-145); Total Protein 7.1 g/dL (6.5-8.0); Triglycerides 58 mg/dL (<150)
[2023-10-08 14:06] LABS: Estimated Average Glucose 146 mg/dL; Hemoglobin A1c % 6.7 % (<6.0)
[2023-10-08 14:10] LABS: Bacteria Urine None Seen (None Seen); Hyaline Casts Urine 0-2 /LPF (0-2); RBC Urine >20 /HPF (0-2); Squamous Epithelial Cell Urine 0-2 /HPF (0-2); WBC Urine 0-5 /HPF (0-5)
[2023-10-08 14:27] LABS: Prostate Specific Antigen Scr 5.42 ng/mL (<0.05-4.0)
== END 2023-10-08 11:47 | disposition home or self-care (01) ==
LOC: HO.LAB 11:46
PROVIDERS: PCP Physician Assistant; Visit Provider Physician Assistant
DX: K21.9 Gastro-esophageal reflux disease without esophagitis (principal); E11.9 Type 2 diabetes mellitus without complications; E78.9 Disorder of lipoprotein metabolism, unspecified; Z12.5 Encounter for screening for malignant neoplasm of prostate; R97.20 Elevated prostate specific antigen [PSA]
CPT/HCPCS: 36415; 80053; 80061; 81001; 83036; 84153; 85027

== ENCOUNTER 2023-10-09 08:02 | Outpatient (REF) | payer MEDICARE, SELFPAY ==
--- NOTE | ~2023-10-09 | XR_ITS ---
EXAMINATION: XR ABDOMEN KUB CLINICAL INDICATION: Acute right-sided flank pain and hematuria. COMPARISON: 10/03/2021 and 09/04/2021 and 05/13/2018 TECHNIQUE: 3 views of the abdomen. FINDINGS: Imaged lung bases are clear. No abnormally dilated loops of small or large bowel are appreciated. The renal shadows are obscured by overlying bowel contents. Surgical clips are detected over the right upper quadrant. There is abnormal lucency within the proximal left femoral shaft. No destructive bone changes are seen. XR/XR KUB IMPRESSION: Nonobstructive bowel gas pattern. Obscured renal shadows. Abnormal lucent lesion seen within the proximal left femoral shaft. The appearance is similar to 09/04/2021 and 05/13/2018.
== END 2023-10-09 08:03 | disposition home or self-care (01) ==
LOC: HO.XRAY 08:02
PROVIDERS: PCP Physician Assistant; Visit Provider Physician Assistant
DX: N20.0 Calculus of kidney (principal)
CPT/HCPCS: 74018

== ENCOUNTER 2023-11-05 13:35 | Outpatient (AMB) | payer MEDICARE, SELFPAY ==
[2023-11-05 14:00] VITALS: BP 120/78; PULSE 72; O2SAT 95; BMI 28.2
--- NOTE | 2023-11-05 14:00 | MHC.PC.OV ---
Vital Signs 11/05/23 14:00 Height 5 ft 8 in Weight 185 lb 4 oz BMI 28.2 BP 120/78 Blood Pressure Location Lt brachial Position Sitting Pulse 72 Pulse Source Pulse Oximeter Pulse Oximetry (%) 95 Oxygen Delivery Method Room Air Intake Visit Reasons: pe Intake Note: The patient is present today for a physical examination and has reported a growing lump on the big finger of the right hand that has appeared over the past few months. Furthermore, the patient is seeking a prescription for Ozempic to help with weight loss and appetite control. Tipple Engineer Required: Yes Tipple Engineer Language: Greenlandic Accompanied by: Self / Same As Patient Allergies aspirin [ASPIRIN] Allergy (Unknown, Verified 11/05/23 14:07) LOW PLATELETS finasteride Allergy (Unknown, Verified 11/05/23 14:07) lower extremity parasthesia tamsulosin Adverse Reaction (Intermediate, Verified 11/05/23 14:07) Abdominal Pain Medication List - Last Reconciled 11/05/23 by Memo Gallo PA-C atorvastatin 40 mg PO BEDTIME blood pressure monitor (Blood Pressure Kit) As directed blood sugar diagnostic (FreeStyle Lite Strips) As directed cetirizine 10 mg PO DAILY 90 days cimetidine 200 mg PO DAILY 90 days CPAP (CPAP Machine/Device) As directed dicyclomine 20 mg PO QID 90 days doxazosin 4 mg PO DAILY 14 days dutasteride 0.5 mg PO DAILY fluticasone propionate 50 mcg/actuation (Flonase Allergy Relief) 1 spray intranasal BID 30 days lancets (FreeStyle Lancets) As directed metformin 500 mg PO BID oxycodone 5 mg PO BID 4 days pantoprazole (Protonix) 40 mg PO DAILY 90 days pyridoxine (vitamin B6) 100 mg PO DAILY 90 days sucralfate 20 mL PO DAILY tadalafil 5 mg PO DAILY 90 days terazosin 5 mg PO BEDTIME 90 days Tobacco use date assessed: 05/06/23 Fall risk assessment: No Falls in past year Last assessed Fall Risk: 11/05/23 Dental Screening Dental Screen Date: 05/06/23 HPI pe HPI Details Patient is a 68-year-old male here today for routine annual physical.? Patient has a past medical history significant for hypertension, type 2 diabetes, GERD BPH, nephrolithiasis .. Hypertension:? Blood pressure today in office acceptable.? Continue him on current dose of doxazosin and lisinopril. .. GERD: Was previously found to have a peptic ulcer on endoscopy. Patient continues on PPI therapy with good effect. He denies any further GI/ epigastric discomforts. Does have Carafate liquid available to him. .. Type 2 diabetes: Continues on metformin 500 mg b.i.d. with good effect. Most recent A1c up at 6.7 from 6.3. He does report having a lot of issues with diet control. He is interested in starting a GLP 1 to help him with managing his hunger and glycemic control. .. BPH: Has had elevated PSAs, followed by Urology whom is following his PSAs. He does report some urinary frequency which he attributes to his diabetes as well. Vaccines: Up-to-date with COVID vaccine, tetanus vaccine and pneumonia vaccine , considering shingles vaccine Colorectal cancer screening: Up-to-date with colonoscopy Laboratory Tests 05/01/23 10/08/23 10/08/23 09:28 11:51 11:59 RBC 5.19 4.83 Creatinine 0.87 0.87 Fasting Glucose 119 H Hemoglobin A1c % 6.3 H 6.7 H Cholesterol 182 LDL Cholesterol, C alc 102 H 122 H PSA Screen 5.42 H Urine Blood Small (1+) H Ur Leukocyte Sandra ase Trace H PFSH Medical History Tubular adenoma of colon Borderline high cholesterol Screening PSA (prostate specific antigen) Adult general medical exam Constipation Overweight (BMI 25.0-29.9) Headache BPH loc w urin obs/LUTS Abdominal mass Presbyopia Allergic rhinitis Elevated PSA BPH (benign prostatic hyperplasia) Elevated cholesterol GERD (gastroesophageal reflux disease) Surgical History S/P laparoscopic cholecystectomy (~06/03/21) History of colonoscopy History of local excision of skin lesion History of prostate surgery History of parathyroidectomy History of lithotripsy History of inguinal hernia repair, bilateral Family History Mother No problems noted. Father No problems noted. Social History Household Members: Spouse Housing: House Do you presently have visiting nurse or other home services: No Alcohol intake: never Patient Tobacco Use Status: Never used Tobacco e-Cigarette/Vaping Use: Never Used Second Hand Smoke Exposure: No service: No Current occupational status: employed Cognitive needs: No Hearing needs: No Vision needs: Yes Questionnaire PHQ-9 Over the last 2 weeks, how often have you been bothered by any of the following problems? 1. Little interest or pleasure in doing things: not at all 2. Feeling down, depressed, or hopeless: not at all 3. Trouble falling or staying asleep, or sleeping too much: not at all 4. Feeling tired or having little energy: not at all 5. Poor appetite or overeating: several days 6. Feeling bad about yourself - or that you are a failure or have let yourself or your family down: several days Source: Developed by Drs. Samuel Charles, Nickie Duran, Quoc Melendez and colleagues, with an educational maria ines from [employer]. Thrive Questionnaire Date Thrive assessed: 05/06/23 GERTRUDE-7 AMB Questionnaire GERTRUDE-7 Date GERTRUDE - 7 assessed: 05/06/23 Source: Developed by Drs. Samuel Charles, Nickie Duran, Quoc Melendez and colleagues, with an educational maria ines from [employer]. Review of Systems Const Denies body aches, Denies chills, Denies excessive sweating, Denies fatigue, Denies fever(s) and Denies headache(s) Eyes Denies blurry vision ENT Denies dysphagia, Denies vertigo, Denies dizziness, Denies headache(s), Denies hearing loss and Denies tinnitus Card Denies chest pain, Denies chest pain with activity, Denies syncope, Denies irregular heart rhythm and Denies dyspnea Resp Denies chest congestion, Denies cough, Denies hemoptysis, Denies dyspnea and Denies wheezing GI Denies abdominal pain, Denies melena, Denies hematochezia, Denies coffee ground emesis, Denies dysphagia, Denies diarrhea, Denies nausea and Denies vomiting Denies difficulty urinating, Denies dysuria, Denies urinary frequency, Denies urinary hesitancy and Denies urinary urgency Musc Denies arthralgias, Denies limited range of motion, Denies muscle cramps and Denies muscle weakness Skin/Breast Denies rash and Denies skin ulcer Neuro Denies Abnormal speech present, Denies confusion, Denies vertigo, Denies dizziness, Denies syncope, Denies headache(s), Denies memory loss and Denies seizure-like activity Psych Denies anxiety, Denies confusion, Denies depression, Denies memory loss, Denies panic attacks and Denies paranoia Endo Denies excessive sweating, Denies fatigue, Denies flushing, Denies polydipsia and Denies polyuria Aller/Immun Denies wheezing Physical exam (Primary Care) Vital Signs: Last Vital Signs Pulse 72 11/05/23 14:00 BP 120/78 11/05/23 14:00 Pulse Ox 95 11/05/23 14:00 Oxygen Delivery Method Room Air 11/05/23 14:00 BMI result Body Mass Index 28.2 Tobacco/Smoking Status: Tobacco use Status Tobacco use date assessed 05/06/23 11/05/23 14:06 Patient Tobacco Use Status Never used Tobacco 11/05/23 14:06 e-Cigarette/Vaping Use Never Used 11/05/23 14:06 Thrive Assessment: Date of Thrive Assessment Date Thrive assessed 05/06/23 11/05/23 14:06 Const General: cooperative, comfortable, no acute distress, alert and awake; No confusion Orientation/consciousness: oriented to person, oriented to place, patient oriented x3 and No confusion HENMT Head: Yes normocephalic Ears: external ears normal and TM's normal bilaterally Face and sinus: No sinus tenderness Mouth: Normal oral and palatal mucosa present and tongue normal Teeth and gingiva: dentition normal and gingiva normal Throat: Yes posterior oropharynx normal, Yes tonsils normal and Yes uvula midline Eyes Conjunctivae: conjunctivae normal Sclerae: sclerae normal Pupils: Equal, round and reactive pupils present EOM: EOMs intact bilaterally Direct Ophthalmoscopy: No no photophobia Neck Neck: Yes no lymphadenopathy, No tender and Yes no JVD Thyroid: Thyroid normal Carotids: no bruits Chest Chest palpation & inspection: no tenderness Resp Effort & Inspection: normal respiratory effort, no audible wheezes, not labored and no stridor Auscultation: no crackles, no rales, no rhonchi and no wheezes Cardio Jugular venous distension: no JVD Rate: regular rate, not bradycardic and not tachycardic Rhythm: regular rhythm Bruits: no carotid bruits Peripheral pulses: Peripheral pulses 2+ throughout GI Inspection: Yes normal to inspection, No abdominal wall ecchymosis and No visible herniation Palpation (GI): Soft to palpation, nontender, no guarding, not rigid and No hepatosplenomegaly present Auscultation: normoactive bowel sounds General: Yes no CVA tenderness Back/Spine/Pelvis Back: no CVA tenderness and No back tenderness Cervical Spine: cervical ROM normal Thoracic/Lumbar Spine: thoracic and lumbar spine normal to inspection, straight leg raise negative bilaterally, No thoraco-lumbar ROM limited and No lumbar spinal tenderness Skin Lesions: no lesions Rashes: no rashes Wounds: no wounds Neuro General: oriented to person, oriented to place, patient oriented x3, CN's II-XI intact bilaterally and No confusion Cranial nerves: Yes Equal, round and reactive pupils present and Yes Normal accommodation reflex present Cognition (Neuro): normal cognition Speech: No Abnormal speech present Gait exam (Neuro): Normal gait present Motor exam (neuro): 5/5 motor strength present throughout Extrem Right upper extremity: full ROM; no cyanosis Left upper extremity: full ROM; no cyanosis Right lower extremity: no edema Left lower extremity: no edema Psych Appearance: grossly normal Mental Status: mental status grossly normal Affect: normal affect Attitude: cooperative Thought process: Normal thought process present Assessment and Plan Assessment & Plan (1) Annual physical exam: Code(s): Z00.00 - Encounter for general adult medical examination without abnormal findings (2) Diabetes mellitus: Code(s): E11.9 - Type 2 diabetes mellitus without complications Qualifiers: Diabetes mellitus complication status: without complication Diabetes mellitus hospice consultant insulin use: without hospice consultant use Diabetes mellitus type: type 2 Qualified Code(s): E11.9 - Type 2 diabetes mellitus without complications Plan: Patient's type 2 diabetes well controlled with current dose of metformin. Most recent A1c is 6.7. Patient interested starting Ozempic for added benefit of weight reduction and glycemic control. Goal A1c to be below 7.0 (3) HTN (hypertension): Code(s): I10 - Essential (primary) hypertension Qualifiers: Hypertension type: essential hypertension Qualified Code(s): I10 - Essential (primary) hypertension Plan: Patient's blood pressure acceptable today in office will continue current antihypertensive medication with goal blood pressure to be below 140/90 (4) GERD (gastroesophageal reflux disease): Code(s): K21.9 - Gastro-esophageal reflux disease without esophagitis Qualifiers: Esophagitis presence: without esophagitis Qualified Code(s): K21.9 - Gastro-esophageal reflux disease without esophagitis Plan: History of peptic ulcer disease. Patient continues on long-term PPI therapy Patient reports his GERD symptoms have been stable. Does use antacid medication on a daily basis with good. (5) Hyperlipidemia: Code(s): E78.5 - Hyperlipidemia, unspecified Qualifiers: Hyperlipidemia type: mixed hyperlipidemia Qualified Code(s): E78.2 - Mixed hyperlipidemia Plan: Patient continues on atorvastatin 40 mg therapy without side effect. Most recent lipid panel showing suboptimal control of his LDL. You will like to work on lifestyle and dietary changes as well as losing weight. Goal LDL is to be below 100. If LDL goal not met will increase his atorvastatin dose to 80 mg. (6) BPH loc w urin obs/LUTS: Code(s): N40.1 - Benign prostatic hyperplasia with lower urinary tract symptoms Plan: Patient's history BPH. PSA remains slightly elevated, he does follow urology.. Continues on doxazosin. (7) Ganglion cyst of tendon sheath of right hand: Code(s): M67.441 - Ganglion, right hand Plan: Has a right thumb soft synovial cyst versus ganglion cyst. He reports no pain in the area. 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 Will continue to watch and wait at this time. (8) Elevated PSA: Code(s): R97.20 - Elevated prostate specific antigen [PSA] Plan: As above Orders: Orders Lipid Panel 11/05/23 E78.2 - Mixed hyperlipidemia Comprehensive [place]. Panel Fast 11/05/23 E78.2 - Mixed hyperlipidemia Medications: New semaglutide (Ozempic) for 4 weeks 0.25 mg (0.368 mL) subcut QWEEK 3 mL 0RF 4 weeks E11.9 - Type 2 diabetes mellitus without complications Refilled atorvastatin 40 mg PO BEDTIME 90 tabs 0RF tadalafil 5 mg PO DAILY 90 tabs 1RF 90 days N40.1 - Benign prostatic hyperplasia with lower urinary tract symptoms Discontinued oxycodone Partial Fill upon patient request. Discontinued Reason: Doctor's Order 5 mg PO BID 4 days 8 tabs 0RF pain N20.0 - Calculus of kidney Patient Instructions: Goal: A1c to remain below 7.0 Barriers: Adherence to physical activity and healthy eating habits Coding Level of Care Code Est Pt Prev Care >65y(10702) Diagnoses Annual physical exam Z00.00 Type 2 diabetes mellitus without complication, without long-term current use of insulin E11.9 Diabetes mellitus complication status: without complication Diabetes mellitus hospice consultant insulin use: without hospice consultant use Diabetes mellitus type: type 2 Essential hypertension I10 Hypertension type: essential hypertension Gastroesophageal reflux disease without esophagitis K21.9 Esophagitis presence: without esophagitis Mixed hyperlipidemia E78.2 Hyperlipidemia type: mixed hyperlipidemia BPH loc w urin obs/LUTS N40.1 Ganglion cyst of tendon sheath of right hand M67.441 Elevated PSA R97.20
== END 2023-11-05 14:28 | disposition home or self-care (01) ==
PROVIDERS: PCP Physician Assistant; Visit Provider Physician Assistant
DX: Z00.00 Encounter for general adult medical examination without abnormal findings (principal); E11.9 Type 2 diabetes mellitus without complications; I10 Essential (primary) hypertension; K21.9 Gastro-esophageal reflux disease without esophagitis; E78.2 Mixed hyperlipidemia; N40.1 Benign prostatic hyperplasia with lower urinary tract symptoms; M67.441 Ganglion, right hand; R97.20 Elevated prostate specific antigen [PSA]
CPT/HCPCS: 99397

== ENCOUNTER 2024-08-26 14:30 | Outpatient (AMB) | payer MEDICARE, SELFPAY ==
[2024-08-26 15:15] VITALS: BP 108/66; PULSE 78; TEMP 36.3; O2SAT 96; BMI 27.7
--- NOTE | 2024-08-26 15:15 | MHC.PC.OV ---
Vital Signs 08/26/24 15:15 Height 5 ft 8 in Weight 182 lb 2 oz BMI 27.7 BP 108/66 Blood Pressure Location Lt brachial Position Sitting Pulse 78 Pulse Source Pulse Oximeter Temp 97.3 F Temp Source Temporal Artery Scan Pulse Oximetry (%) 96 Oxygen Delivery Method Room Air Intake Visit Reasons: med f/u Scrap Metal Processing Worker Required: Yes Scrap Metal Processing Worker Name: ID # [id number] Allergies aspirin (ASPIRIN) Allergy (Unknown, Verified 08/26/24 15:51) LOW PLATELETS finasteride Allergy (Unknown, Verified 08/26/24 15:51) lower extremity parasthesia tamsulosin Adverse Reaction (Intermediate, Verified 08/26/24 15:51) Abdominal Pain Medication List - Last Reconciled 08/26/24 by Memo Gallo PA-C atorvastatin 40 mg PO BEDTIME blood pressure monitor (Blood Pressure Kit) As directed blood sugar diagnostic (FreeStyle Lite Strips) As directed cetirizine 10 mg PO DAILY 90 days cimetidine 200 mg PO DAILY 90 days CPAP (CPAP Machine/Device) As directed dicyclomine 20 mg PO QID 90 days doxazosin 4 mg PO DAILY 14 days dutasteride 0.5 mg PO DAILY fluticasone propionate 50 mcg/actuation (Flonase Allergy Relief) 1 spray intranasal BID 30 days lancets (FreeStyle Lancets) As directed metformin 500 mg PO BID pantoprazole 40 mg PO DAILY pyridoxine (vitamin B6) 100 mg PO DAILY 90 days semaglutide (Ozempic) 0.5 mg (0.736 mL) subcut QWEEK 4 weeks sucralfate 20 mL PO DAILY tadalafil 5 mg PO DAILY 90 days terazosin 5 mg PO BEDTIME 90 days Tobacco use date assessed: 05/06/23 Dental Screening Dental Screen Date: 05/06/23 HPI med f/u HPI Details Patient is a 69-year-old male here today for follow-up visit. ? Patient has a past medical history significant for hypertension, type 2 diabetes, GERD BPH, nephrolithiasis .. Hypertension:? Blood pressure today in office acceptable.? Continue him on current dose of doxazosin . .. Hyperlipidemia: Was previously on atorvastatin though for some unclear reason has not been taking his statin therapy. Will recheck lipid panel to ensure appropriate LDL below 100 and consider restarting statin therapy. .. GERD: Was previously found to have a peptic ulcer on endoscopy. Patient continues on PPI therapy with good effect. He denies any further GI/ epigastric discomforts. Does have Carafate liquid available to him. .. Type 2 diabetes: Today's A1c improved at 6.1. . He does report having a lot of issues with diet control. He continues on Ozempic 0.5 mg with good effect .. BPH: Has had elevated PSAs, followed by Urology whom is following his PSAs. He does report some urinary frequency which he attributes to his diabetes as well. [facility] Medical History Tubular adenoma of colon Borderline high cholesterol Screening PSA (prostate specific antigen) Adult general medical exam Constipation Overweight (BMI 25.0-29.9) Headache BPH loc w urin obs/LUTS Abdominal mass Presbyopia Allergic rhinitis Elevated PSA BPH (benign prostatic hyperplasia) Elevated cholesterol GERD (gastroesophageal reflux disease) Surgical History S/P laparoscopic cholecystectomy (~06/03/21) History of colonoscopy History of local excision of skin lesion History of prostate surgery History of parathyroidectomy History of lithotripsy History of inguinal hernia repair, bilateral Family History Mother No problems noted. Father No problems noted. Social History Household Members: Spouse Housing: House Do you presently have visiting nurse or other home services: No Alcohol intake: never Patient Tobacco Use Status: Never used Tobacco e-Cigarette/Vaping Use: Never Used Second Hand Smoke Exposure: No service: No Current occupational status: employed Cognitive needs: No Hearing needs: No Vision needs: Yes Questionnaire PHQ-9 Over the last 2 weeks, how often have you been bothered by any of the following problems? 1. Little interest or pleasure in doing things: not at all 2. Feeling down, depressed, or hopeless: not at all 3. Trouble falling or staying asleep, or sleeping too much: not at all 4. Feeling tired or having little energy: not at all 5. Poor appetite or overeating: not at all 6. Feeling bad about yourself - or that you are a failure or have let yourself or your family down: not at all 7. Trouble concentrating on things, such as reading the newspaper or watching television: not at all 8. Moving or speaking so slowly that other people could have noticed. Or the opposite - being so fidgety or restless that you have been moving around a lot more than usual: not at all 9. Thoughts that you would be better off or of hurting yourself in some way: not at all Total score: 0 Depression Screening Interpretation: Negative Depression Screening Done: Yes 45690 - PHQ-9 Billing: Yes Source: Developed by Drs. Samuel Charles, Nickie Duran, Quoc Melendez and colleagues, with an educational maria ines from [employer]. Thrive Questionnaire Date Thrive assessed: 08/26/24 GERTRUDE-7 AMB Questionnaire GERTRUDE-7 Date GERTRUDE - 7 assessed: 05/06/23 Source: Developed by Drs. Samuel Charles, Nickie Duran, Quoc Melendez and colleagues, with an educational maria ines from [employer]. Review of Systems Const Denies headache(s) Eyes Denies loss of vision ENT Denies vertigo, Denies dizziness, Denies headache(s) and Denies sore throat Card Denies chest pain, Denies leg edema and Denies lightheadedness Resp Denies cough, Denies hemoptysis and Denies wheezing GI Denies abdominal pain, Denies melena, Denies constipation, Denies diarrhea and Denies vomiting Denies dysuria, Denies urinary frequency and Denies urinary urgency Musc Denies arthralgias, Denies joint swelling, Denies numbness and Denies tingling Neuro Denies Abnormal speech present, Denies behavioral changes, Denies vertigo, Denies dizziness, Denies headache(s), Denies loss of vision, Denies memory loss, Denies numbness and Denies tingling Psych Denies anxiety, Denies behavioral changes, Denies depression, Denies memory loss and Denies panic attacks Jacek/Lymph Denies easy bleeding and Denies easy bruising Aller/Immun Denies wheezing Physical exam (Primary Care) Vital Signs: Last Vital Signs Temp 97.3 F 08/26/24 15:15 Pulse 78 08/26/24 15:15 BP 108/66 08/26/24 15:15 Pulse Ox 96 08/26/24 15:15 Oxygen Delivery Method Room Air 08/26/24 15:15 BMI result Body Mass Index 27.7 Tobacco/Smoking Status: Tobacco use Status Tobacco use date assessed 05/06/23 08/26/24 15:15 Patient Tobacco Use Status Never used Tobacco 08/26/24 15:15 e-Cigarette/Vaping Use Never Used 08/26/24 15:15 PHQ-9: PHQ-9 Score PHQ-9: Total score 0 08/26/24 15:52 Depression Screening Interpretation: Negative Thrive Assessment: Date of Thrive Assessment Date Thrive assessed 08/26/24 08/26/24 15:28 Const General: healthy appearing, no acute distress, alert and awake Nutritional Appearance: well nourished Orientation/consciousness: oriented to person, oriented to place and oriented to time HENMT Ears: TM's normal bilaterally General nose exam: Normal nasal mucous membranes and turbinates present Eyes Conjunctivae: conjunctivae normal Sclerae: sclerae normal Pupils: Equal, round and reactive pupils present Neck Neck: Yes no lymphadenopathy and Yes no JVD Thyroid: Thyroid normal Carotids: no bruits Resp Effort & Inspection: normal respiratory effort and not tachypneic Auscultation: no crackles, no rales, no rhonchi and no wheezes Cardio Rate: regular rate Rhythm: regular rhythm Heart sounds: no murmurs and normal S1 and S2 GI Palpation (GI): Soft to palpation, nontender, no hepatomegaly and no splenomegaly Auscultation: normal bowel sounds Skin General skin exam: no rashes or lesions noted and dry skin Neuro General: oriented to person, oriented to place and oriented to time Cranial nerves: Yes Equal, round and reactive pupils present Speech: No Abnormal speech present Gait exam (Neuro): Normal gait present Motor exam (neuro): no tremor noted Extrem Right upper extremity: full ROM Left upper extremity: full ROM Right lower extremity: full ROM; no edema Left lower extremity: full ROM; no edema Psych Mental Status: mental status grossly normal Speech and movement: Normal speech and movement present Affect: normal affect Attitude: cooperative Thought process: Normal thought process present Results AMB Hemoglobin A1c AMB Hemoglobin A1c 6.1 % Last Edit by LYDIA Ortiz on 08/26/24 15:28 Results Reviewed Results Reviewed: Laboratory Last Values Hgb A1c (Clinic) 6.1 % (4.0-6.0) H 08/26/24 15:11 Coding Level of Care Code Est Pt Level 4 (39119) Diagnoses Essential hypertension I10 Hypertension type: essential hypertension Mixed hyperlipidemia E78.2 Hyperlipidemia type: mixed hyperlipidemia Type 2 diabetes mellitus without complication, without long-term current use of insulin E11.9 Diabetes mellitus complication status: without complication Diabetes mellitus skilled nursing insulin use: without retail store associate use Diabetes mellitus type: type 2 Additional Codes PHQ-9 - 60057 - PHQ-9 Billing: Yes ([id number]) Assessment & Plan Assessment & Plan (1) HTN (hypertension): Code(s): I10 - Essential (primary) hypertension Category: Medical Qualifiers: Hypertension type: essential hypertension Qualified Code(s): I10 - Essential (primary) hypertension Plan: Patient's blood pressure acceptable today in office. Will continue his current dose of doxazosin, was previously on lisinopril though for some unclear reason has not been on this medication. Goal blood pressure to be below 140/90 (2) Hyperlipidemia: Code(s): E78.5 - Hyperlipidemia, unspecified Category: Medical Qualifiers: Hyperlipidemia type: mixed hyperlipidemia Qualified Code(s): E78.2 - Mixed hyperlipidemia Plan: Will restart atorvastatin to reduce cardiovascular risks with goal LDL to be below 100. (3) Diabetes mellitus: Code(s): E11.9 - Type 2 diabetes mellitus without complications Category: Medical Qualifiers: Diabetes mellitus complication status: without complication Diabetes mellitus skilled nursing insulin use: without skilled nursing use Diabetes mellitus type: type 2 Qualified Code(s): E11.9 - Type 2 diabetes mellitus without complications Plan: Patient's type 2 diabetes well controlled with current management. Goal A1c is to remain below 7.0 Orders: Orders Prostate Specific Antigen Scr 08/26/24 Z12.5 - Encounter for screening for malignant neoplasm of prostate UA CC w/rflx Micro + Cult 08/26/24 N40.1 - Benign prostatic hyperplasia with lower urinary tract symptoms, R30.0 - Dysuria AMB Hemoglobin A1c 08/26/24 E11.9 - Type 2 diabetes mellitus without complications Medications: Changed From atorvastatin 40 mg PO BEDTIME 90 tabs 0RF E11.9 - Type 2 diabetes mellitus without complications, E78.2 - Mixed hyperlipidemia, I10 - Essential (primary) hypertension To atorvastatin 40 mg PO BEDTIME 90 tabs 1RF 90 days E11.9 - Type 2 diabetes mellitus without complications, E78.2 - Mixed hyperlipidemia, I10 - Essential (primary) hypertension Refilled cetirizine 10 mg PO DAILY 90 tabs 1RF allergy symptoms 90 days J30.89 - Other allergic rhinitis semaglutide (Ozempic) 0.5 mg (0.736 mL) subcut QWEEK 3 mL 3RF 4 weeks E11.9 - Type 2 diabetes mellitus without complications Patient Instructions: Goal: A1c to be below 7.0, LDL to be below 100, blood pressure to remain below 140/90 Barriers: Adherence to physical activity and healthy eating habits
--- OUTSIDE RECORDS SUMMARY | 2024-08-26 15:46 | XMS_ITS | Clinical Summary ---
Author Organization [employer] Address [address] [facility] [address] [place] [address] Care Team Providers Care Blade Groover Name Role Phone Unavailable Primary Care Provider Unavailabl e Allergies Active Allergy Reactions Criticality Noted Date Comments Aspirin 06/20/2017 Medications metFORMIN (Glucophage) 500 MG tablet TOME MICHELLE TABLETA DOS VECES AL D A 3 Active cetirizine (ZyrTEC) 10 MG tablet TOME MICHELLE TABLETA POR V A ORAL DAILY FOR ALLERGY SYMPTOMS FOR 90 DAYS 3 Active acetaminophen-c odeine (Tylenol w/ Codeine #3) 300-30 MG tablet TAKE 1 TAB POR V A ORAL 2 TIMES A DAY NEEDED FOR PAIN FOR 7 DAYS 3 Active atorvastatin (Lipitor) 40 MG tablet TOME MICHELLE TABLETA TODOS LOS D AL ACOSTARSE 3 Active cimetidine (Tagamet) 200 MG tablet TOME MICHELLE TABLETA TODOS LOS D 3 Active fluticasone (Flonase) 50 MCG/ACT nasal spray SPRAY 1 SPRAY INTRANASALLY 2 TIMES A DAY FOR 30 DAYS ADMINISTER INTO EACH NOSTRIL 3 Active pantoprazole (ProtoNix) 40 MG EC tablet TOME MICHELLE TABLETA POR V A ORAL TODOS LOS D POR 90 GONZALEZ 3 Active sucralfate (Carafate) 1 GM/10ML suspension 4 Active dicyclomine (Bentyl) 20 MG tablet TAKE 1 TAB 4 TIMES A DAY FOR 90 DAYS 4 Active doxazosin (Cardura) 4 MG tablet TOME MICHELLE TABLETA POR V A ORAL TODOS LOS D FOR 14 DAYS 4 Active oxyCODONE (Roxicodone) 5 MG immediate release tablet TOME MICHELLE TABLETA POR V A ORAL DOS VECES AL D A CUANDO SEA NECESARIO PARA EL DOLOR FOR 4 DAYS 4 Active tadalafil (Cialis) 5 MG tablet Take 5 mg by mouth Once per day. 4 Active chlorhexidine (Peridex) 0.12 % solution Swish 15 mL morning and night for 1 minute. Spit, do not swallow. Do not eat or drink for 30 minutes following use. 473 mL 4 Active acetaminophen (Tylenol 8 Hour) 650 MG ER tablet Take 1 tablet (650 mg) by mouth every 8 (eight) hours if needed for mild pain. Do not crush, chew, or split. 30 tablet 5 Active Active Problems Problem Noted Date Diagnosed Date Severe dental caries 06/22/2024 Acute periodontal abscess 02/09/2024 Dental calculus 04/18/2023 Localized gingival recession 04/18/2023 Retained tooth root 03/31/2023 Kidney stone on left side 04/10/2018 Overview (10/13/2023): 4mm non-obstructing renal stone Encounters Date Type Department Care Team Description 06/22/2024 10:30 AM EDT Office Visit [facility] [address] [place] [address] Matt Rodríguez DDS Severe dental caries (Primary Dx) from Last 3 Months Social History Tobacco Use Types Packs/Day Years Used Date Smoking Tobacco: Never Smokeless Tobacco: Never Tobacco Cessation:Counseling Given: Not Answered Alcohol Use Standard Drinks/Week Comments Never 0 (1 standard drink = 0.6 oz pur e alcohol) Sex and Gender Information Value Date Recorded Sex Assigned at Male 01/07/2022 10:35 AM EDT Legal Sex Male 10:35 AM EDT Gender Identity Male 01/07/2022 10:35 AM EDT Sexual Orientation Choose not to disclose 2021 10:35 AM EDT Last Filed Vital Signs Vital Sign Reading Time Taken Comments Blood Pressure 128/76 06/22/2024 9:14 AM EDT Pulse 72 06/22/2024 9:14 AM EDT Temperature - - Respiratory Rate - - Oxygen Saturation - - Inhaled Oxygen Concentration - - Weight - - Height - - Body Mass Index - - Plan of Treatment Upcoming Encounters Date Type Department Care Team (Late st Contact Info) Description 09/22/2024 11:00 AM EDT Office Visit [facility] [address] [place] [address] Avril Maza [address] [place] [address] 11/23/2024 8:00 AM EDT Office Visit [facility] [address] [place] [address] Avril Maza [address] [place] [address] Health Maintenance Due Date Last Done Comments CT Colonography 1953 Colonoscopy 1953 Colorectal Cancer Screening 1953 Depression Screening 1953 FIT DNA/Cologuard 1953 FIT 1953 FOBT 1953 Lipid Panel 1953 SDOH Screening 1953 Sigmoidoscopy 1953 Alcohol/Substance Use Screening 1965 Hepatitis C Screening 1971 Zoster Vaccines (1 of 2) 2003 COVID-19 Vaccine ( season) 2023 10/08/2021, 05/31/2020 Influenza Vaccine (Season Ended) 2024 01/27/2023, 02/28/2021, 12/25/2020, Additional history exists Dental Oral Exam 11/18/2024 05/17/2024, , 03/30/2019, Additional history exists Dental Prophylaxis 11/18/2024 05/17/2024, 0 11/12/2023, 04/18/2023, Additional history exists Dental X-Ray: Bitewings 05/18/2025 05/18/19, 03/28/2023, 03/30/2019, Additional history exists Tobacco Screening 06/22/2025 06/22/2024 Dental X-Ray: Full Mouth 02/09/2027 024, 03/28/2023, 09/04/2018 RSV Patients and Patients Aged 60 years or older (1 - 1-dose 75+ series) 01/14/2028 DTaP/Tdap/Td Vaccines (2 - Td or Tdap) 06/07/2029 06/08/2019 Pneumococcal Vaccine: 50+ Years Completed 07/15/2018, 01/28/2018 HIB Vaccines Aged Out No longer eligi ble based on patient's age to complete this topic HPV Vaccines Aged Out No longer eligi ble based on patient's age to complete this topic Hepatitis A Vaccines Aged Out No long er eligible based on patient's age to complete this topic Hepatitis B Vaccines Aged Out No long er eligible based on patient's age to complete this topic IPV Vaccines Aged Out No longer eligi ble based on patient's age to complete this topic Meningococcal B Vaccine Aged Out No l onger eligible based on patient's age to complete this topic Meningococcal Vaccine Aged Out No bisi jose rafael eligible based on patient's age to complete this topic RSV under 20 months Aged Out No longe r eligible based on patient's age to complete this topic Rotavirus Vaccines Aged Out No longer eligible based on patient's age to complete this topic Procedures Procedure Name Priority Date/Time Associated Diagnosis Comments 1 EXTRACTION, ERUPTED TOOTH REQ REMOVAL OF BONE AND/OR SECTIONING OF TOOTH Routine 06/22/2024 10:30 AM EDT INTRAORAL - PERIAPICAL FIRST RADIOGRAPHIC IMAGE Routine 06/22/2024 10:30 AM EDT PROPHYLAXIS - ADULT Routine 05/17/2024 1 0:00 AM EDT Dental calculus BITEWINGS - 3 RADIOGRAPHIC IMAGES Routine 05/17/2024 10:00 AM EDT Dental calculus PERIODIC ORAL EVALUATION - ESTABLISHED PATIENT Routine 05/17/2024 10:00 AM EDT PANORAMIC RADIOGRAPHIC IMAGE Routine 02/09/2024 10:30 AM EST from Last 3 Months or Most Recently Relevant to Health Maintenance Insurance DENTAL - [facility] [place] [address] DENTAL - [facility] FULL (MEDICAID)
== END 2024-08-26 16:03 | disposition home or self-care (01) ==
LOC: HO.HMCH 14:30
PROVIDERS: PCP Physician Assistant; Visit Provider Physician Assistant
DX: E11.9 Type 2 diabetes mellitus without complications (principal)

== ENCOUNTER → 2024-08-26 14:30 | Outpatient (BNVA) | payer MEDICARE, SELFPAY | PROVIDERS: PCP Physician Assistant; Visit Provider Physician Assistant | DX: I10 Essential (primary) hypertension (principal); E78.2 Mixed hyperlipidemia; E11.9 Type 2 diabetes mellitus without complications | CPT/HCPCS: 83036; 96127; 99212 ==

== ENCOUNTER 2024-11-09 08:17 | Outpatient (REF) | payer MEDICARE, SELFPAY ==
--- OUTSIDE RECORDS SUMMARY | 2024-11-03 13:30 | XMS_ITS | Encounter Summary ---
Author Organization [employer] Address [address] [facility] [place] [address] Care Team Providers Care Radiologic Tech Name Role Phone Unavailable Primary Care Provider Unavailabl e Reason for Visit * Reason Comments Filling Encounter Details Date Type Department Care Team ([facility] st Contact Info) Description 11/03/2024 1:30 PM EDT Office Visit [facility] [address] [place] [address] Maynor Gee DMD [address] [place] [address] Social History Tobacco Use Types Packs/Day Years Used Date Smoking Tobacco: Never Smokeless Tobacco: Never Alcohol Use Standard Drinks/Week Comments Never 0 (1 standard drink = 0.6 oz pur e alcohol) Sex and Gender Information Value Date Recorded Sex Assigned at Male 01/07/2022 10:35 AM EDT Legal Sex Male 10:35 AM EDT Gender Identity Male 01/07/2022 10:35 AM EDT Sexual Orientation Choose not to disclose 2021 10:35 AM EDT documented as of this encounter Last Filed Vital Signs Vital Sign Reading Time Taken Comments Blood Pressure 110/60 11/03/2024 1:25 PM EDT Pulse 66 11/03/2024 1:25 PM EDT Temperature - - Respiratory Rate - - Oxygen Saturation - - Inhaled Oxygen Concentration - - Weight - - Height - - Body Mass Index - - documented in this encounter Progress Notes * Maynor Gee DMD - 11/03/2024 1:30 PM EDT Teeth#18,19: 1 carp of Septocaine, PDL infiltration, existed unsounded enamel is being excavated, Gluma placed, etch and rojas, composite A-3 is packed, carved, and smoothed, occlusion check. Pt feelsfine Inform pt that if the filling #18 break again, it will need RCT, P&C and crown. Pt understand the situation Recommend pt to use OTC dental guard due to bruxism Norberto documented in this encounter Miscellaneous Notes * Addendum Note - Maynor Gee DMD - 11/03/2024 1:30 PM EDTAddended by: MAYNOR GEE on: 11/04/2024 09:25 AM Modules accepted: Orders documented in this encounter Plan of Treatment Upcoming Encounters Date Type Department Care Team (Late st Contact Info) Description 11/23/2024 8:00 AM EDT Office Visit [facility] [address] [place] [address] Shaunna, Avril [address] [place] [address] documented as of this encounter Procedures Procedure Name Priority Date/Time Associated Diagnosis Comments 18 DOL RESIN-BASED COMPOSITE - 3 SURF, POSTERIOR Routine 11/03/2024 1:30 PM EDT 19 B RESIN-BASED COMPOSITE - 1 SURF, POSTERIOR Routine 11/03/2024 1:30 PM EDT CASE PRESENTATION, DETAILED AND EXTENSIVE TREATMENT PLANNING Routine 11/03/2024 1:30 PM EDT documented in this encounter Visit Diagnoses Not on filedocumented in this encounter
--- OUTSIDE RECORDS SUMMARY | 2024-11-09 08:54 | XMS_ITS | Encounter Summary ---
Author Organization [employer] Address [address] [place] [address] Care Team Providers Care Wireline Supervisor Name Role Phone Unavailable Primary Care Provider Unavailabl e Encounter Details Date Type Department Care Team (Latest Contact Info) Description 09/29/[address] [facility] CONVERSIONS Dental, Provider, DDS Social History Tobacco Use Types Packs/Day Years Used Date Smoking Tobacco: Never Assessed Sex and Gender Information Value Date Recorded Sex Assigned at Male 01/07/2022 10:35 AM EDT Legal Sex Male 10:35 AM EDT Gender Identity Male 01/07/2022 10:35 AM EDT Sexual Orientation Choose not to disclose 2021 10:35 AM EDT documented as of this encounter Plan of Treatment Upcoming Encounters Date Type Department Care Team ( st Contact Info) Description 11/23/2024 8:00 AM EDT Office Visit [facility] [address] [place] [address] Shaunna, Avril [address] [place] [address] documented as of this encounter Visit Diagnoses Not on filedocumented in this encounter
--- OUTSIDE RECORDS SUMMARY | 2024-11-09 08:54 | XMS_ITS | Clinical Summary ---
Author Organization [employer] Address [address] [place] [address] Care Team Providers Care Software Development Coordinator Name Role Phone Unavailable Primary Care Provider [...] chew, or split. 30 tablet 5 Active chlorhexidine (Peridex) 0.12 % solution Use 15 mL in the mouth or throat if needed in the morning, at noon, and at bedtime (PROPHYLAXIS) for up to 5 days. 110 mL 5 11/10/19 Active Active Problems Problem Noted Date Diagnosed Date Gingival bleeding 09/22/2024 Periodontal disease 09/22/2024 Severe dental caries 06/22/2024 Acute periodontal abscess 02/09/2024 Dental calculus 04/18/2023 Localized gingival recession 04/18/2023 Retained tooth root 03/31/2023 Kidney stone on left side 04/10/2018 Overview (10/13/2023): 4mm non-obstructing renal stone Encounters Date Type Department Care Team Description 11/03/2024 1:30 PM EDT Office Visit [facility] [address] [place] [address] Mahesh Marsh DMD 10/01/2024 9:00 AM EDT Office Visit [facility] [address] [place] [address] Avril Maza 09/22/2024 11:00 AM EDT Office Visit [facility] [address] [place] [address] Avril Maza Dental calculus (Primary Dx); Localized gingival recession; Periodontal disease; Gingival bleeding from Last 3 Months Social History Tobacco [...] Description 11/23/2024 8:00 AM EDT Office Visit [facility] [address] [place] [address] Avril Maza [address] [place] [address] Health Maintenance Due Date Last Done Comments CT Colonography 1953 Colonoscopy 1953 Colorectal Cancer Screening 1953 Depression Screening 1953 FIT DNA/Cologuard 1953 FIT 1953 FOBT 1953 Lipid Panel 1953 SDOH Screening 1953 Sigmoidoscopy 1953 Alcohol/Substance Use Screening 1965 Hepatitis C Screening 1971 Zoster Vaccines (1 of 2) 2003 COVID-19 Vaccine ( season) 2023 10/08/2021, 05/31/2020 Influenza Vaccine (#1) 2024 3, 02/28/2021, 12/25/2020, Additional history exists Dental Oral Exam 11/18/2024 05/17/2024, , 03/30/2019, Additional history exists Dental Prophylaxis 11/18/2024 05/17/2024, 0 11/12/2023, 04/18/2023, Additional history exists Dental X-Ray: Bitewings 09/23/2025 09/23/19, 05/17/2024, 03/28/2023, Additional history exists Tobacco Screening 11/03/2025 11/03/2024 Dental X-Ray: Full Mouth 02/09/2027 024, 03/28/2023, [...] this topic Meningococcal Vaccine Aged Out No ibsi jose rafael eligible based on patient's age to complete this topic RSV under 20 months Aged Out No longe r eligible based on patient's age to complete this topic Rotavirus Vaccines Aged Out No longer eligible based on patient's age to complete this topic Procedures Procedure Name Priority Date/Time Associated Diagnosis Comments CASE PRESENTATION, DETAILED AND EXTENSIVE TREATMENT PLANNING Routine 11/03/2024 1:30 PM EDT 18 DOL RESIN-BASED COMPOSITE - 3 SURF, POSTERIOR Routine 11/03/2024 1:30 PM EDT 19 B RESIN-BASED COMPOSITE - 1 SURF, POSTERIOR Routine 11/03/2024 1:30 PM EDT NO CHARGE VISIT Routine 10/01/2024 9:00 AM EDT BITEWING - SINGLE RADIOGRAPHIC IMAGE Routine 09/22/2024 11:00 AM EDT Dental calculus Localized gingival recession Periodontal disease Gingival bleeding CASE PRESENTATION, DETAILED AND EXTENSIVE TREATMENT PLANNING Routine 09/22/2024 11:00 AM EDT Dental calculus Localized gingival recession Periodontal disease Gingival bleeding ORAL HYGIENE INSTRUCTIONS Routine 09/22/2024 11:00 AM EDT Dental calculus Localized gingival recession Periodontal disease Gingival bleeding LR PERIODONTAL SCALING AND ROOT PLANING - 1 TO 3 TEETH PER QUADRANT Routine 09/22/2024 11:00 AM EDT Dental calculus Localized gingival recession Periodontal disease Gingival bleeding UR PERIODONTAL SCALING AND ROOT PLANING - 1 TO 3 TEETH PER QUADRANT Routine 09/22/2024 11:00 AM EDT Dental calculus Localized gingival recession Periodontal disease Gingival bleeding PROPHYLAXIS - ADULT Routine 05/17/2024 1 0:00 AM EDT Dental calculus PERIODIC ORAL EVALUATION - ESTABLISHED PATIENT Routine 05/17/2024 10:00 AM EDT PANORAMIC RADIOGRAPHIC IMAGE Routine 02/09/2024 10:30 AM EST from Last 3 Months or Most Recently Relevant to Health Maintenance Insurance [facility] PPO DENTAL - N FULL (MEDICAID)
--- OUTSIDE RECORDS SUMMARY | 2024-11-09 08:54 | XMS_ITS | Clinical Summary ---
Author Organization [facility] Address [address] [place] [address] Care Team Providers Care Satellite Installer Name Role Phone Perico Garibay HANDMADE TILE ARTIST Primary Care Provider [phone] Source Comments PLEASE NOTE, if this patient is a minor, it may be UNLAWFUL to discuss sensitive information that is contained in these records (such as FAMILY PLANNING, MENTAL HEALTH or SUBSTANCE ABUSE) with the minor patient's parent or other person without the patient's specific authorization.[facility] Allergies Active Allergy Reactions Criticality Noted Date Comments Aspirin 06/20/2017 Medications blood-glucose meter monitoring kitIndications:Typ e 2 diabetes mellitus without complication, without long-term current use of insulin (CMS & HHS-[facility]) as needed for blood glucose monitoring PLEASE PROVIDE WITH FREESTYLE GLUCOSE MONITOR. Dx: E11.9. Lifetime need. 1 Each 8 Active lancets (FREESTYLE LANCETS) 28 gaugeIndications:T ype 2 diabetes mellitus without complication, without long-term current use of insulin (CMS & HHS-HCC) Dx: E11.9. Lifetime need. Check Blood sugar once a day and 3 times per day PRN. 100 Each 5 8 Active blood sugar diagnostic (FREESTYLE TEST) stripsIndications: Type 2 diabetes mellitus without complication, without long-term current use of insulin (CMS & HHS-HCC) 1 Strip as needed for high blood sugar Dx: E11.9. Lifetime need. Check Blood sugar once a day and 3 times per day PRN. 100 Each 5 8 Active alcohol swabsIndications:T ype 2 diabetes mellitus without complication, without long-term current use of insulin (CMS & HHS-HCC) Dx: E11.9. Lifetime need. Check Blood sugar once a day and 3 times per day PRN. 100 Each 5 8 Active ibuprofen (ADVIL,MOTRIN) 600 mg tabletIndications: Renal stones Take 1 Tab by mouth 3 (three) times daily as needed for moderate pain for pain 30 Tab 1 9 Active atorvastatin (LIPITOR) 10 mg tabletIndications: Hyperlipidemia, unspecified hyperlipidemia type Take 1 Tab by mouth once daily 30 Tab 11 9 Active loratadine (CLARITIN) 10 mg tabletIndications: Environmental allergies Take 1 Tab by mouth once daily as needed for allergies 30 Tab 5 9 Active tamsulosin (FLOMAX) 0.4 mg 24 hr capsuleIndications :Benign prostatic hyperplasia with urinary frequency Take 1 Cap by mouth once daily 30 Cap 11 9 Active omeprazole (PRILOSEC) [address] capsuleIndications :Gastroesophageal reflux disease without esophagitis TAKE 1 CAPSULE BY MOUTH EVERY MORNING BEFORE BREAKFAST 30 Cap 11 9 Active metFORMIN (GLUCOPHAGE) 500 mg tabletIndications: Type 2 diabetes mellitus without complication, without long-term current use of insulin ([facility]) TOME MICHELLE TABLETA DOS VECES AL ANTHONY CON ALIMENTO 60 Tab 9 Active Active Problems Problem Noted Date Diagnosed Date Kidney stone on left side 04/10/2018 Overview (04/10/2018): 4mm non-obstructing renal stone Atypical chest pain 04/10/2018 Environmental allergies 10/28/2017 H/O colonoscopy 09/12/2017 Overview (09/12/2017): Last colonoscopy 07/2017, repeat in 3 years Benign prostatic hyperplasia with urinary freque ncy 09/12/2017 Hyperlipidemia 09/12/2017 Type 2 diabetes mellitus wit hout complication, without long-term current use of insulin ([facility]) 07/03/2017 Immunizations Immunization Administration Dates Next Due Influenza (FLUZONE), high-dose, trivalent, PF PNEUMOCOCCAL CONJUGATE PCV 13 01/28/2018 Social History Tobacco Use Types Packs/Day Years Used Date Smoking Tobacco: Never Smokeless Tobacco: Never Tobacco Cessation:Counseling Given: No Alcohol Use Standard Drinks/Week Comments No 0 (1 standard drink = 0.6 oz pur e alcohol) Social Connections Answer Date Recorded Social Connections and Isolation 0 11/02/2018 Financial Resource Strain Answer Date R ecorded Financial Resource Strain 0 2018 Stress Answer Date Recorded Stress 0 11/02/2018 Physical Activity Answer Date Recorded Physical Activity 0 11/02/2018 Food Insecurity Answer Date Recorded Food 0 11/02/2018 Transportation Needs Answer Date Record ed Transportation 0 11/02/2018 Housing Stability Answer Date Recorded Housing 0 11/02/2018 Safety and Environment Answer Date Rock rded Safety 0 11/02/2018 Utilities Answer Date Recorded Utilities 0 11/02/2018 Employment Answer Date Recorded Employment 0 11/02/2018 Sex and Gender Information Value Date Recorded Sex Assigned at Male 06/20/2017 12:14 PM PDT Legal Sex Male 8:39 AM PST Gender Identity Male 06/20/2017 12:14 PM PDT Sexual Orientation Straight 04/10/2018 10 :26 AM PST Last Filed Vital Signs Vital Sign Reading Time Taken Comments Blood Pressure 122/78 04/10/2018 1:19 PM EST Pulse 71 04/10/2018 1:19 PM EST Temperature 36.7 C (98.1 F) 04/10/2018 1:19 PM EST Respiratory Rate 24 04/10/2018 1:19 PM EST Oxygen Saturation 97% 04/10/2018 1:19 PM EST Inhaled Oxygen Concentration - - Weight 81.2 kg (179 lb) 04/10/2018 1:19 PM EST Height 174.5 cm (5' 8.7 ) 04/10/2018 1:19 PM EST Body Mass Index 26.66 04/10/2018 1:19 PM EST Plan of Treatment Not on file Insurance [place] [facility] [place] [id number] Care Teams Satellite Installer Relationship Specialty Start Date End Date Perico Garibay NP [address] [place] [phone] PCP - General 05/05/18
[2024-11-09 09:29] LABS: Appearance Urine Clear; Glucose Urine UA Negative (Negative); PH 5.5 (5.0-9.0); Specific Gravity - Urine 1.015 (1.005-1.025); UMIC TRIGGER UACC YES
== END 2024-11-09 08:18 | disposition home or self-care (01) ==
LOC: HO.LAB 08:17
PROVIDERS: Visit Provider Physician Assistant
DX: Z12.5 Encounter for screening for malignant neoplasm of prostate (principal); N40.1 Benign prostatic hyperplasia with lower urinary tract symptoms; R30.0 Dysuria
CPT/HCPCS: 36415; 81001; 84153

== ENCOUNTER 2024-11-10 11:20 | Outpatient (AMB) | payer MEDICARE, SELFPAY ==
--- NOTE | 2024-11-10 11:32 | A.OFFPC_ITS ---
Vital Signs 11/10/24 11:35 Height 5 ft 8 in Weight 186 lb 6 oz BMI 28.3 BP 130/60 Blood Pressure Location Lt brachial Position Sitting Pulse 71 Pulse Source Pulse Oximeter Pulse Oximetry (%) 96 Oxygen Delivery Method Room Air Intake Visit Reasons: annual exam - see comments Intake Note: Patient is here today for a physical. Model And Dye Person Required: Yes Model And Dye Person Language: Neurology Stroke Physician Name: ID # [id number] Information Interpreted: non-clinical & clinical Acute Care Registered Nurse: Not Required per policy Accompanied by: Self / Same As Patient Allergies aspirin (ASPIRIN) Allergy (Unknown, Verified 11/10/24 11:45) LOW PLATELETS finasteride Allergy (Unknown, Verified 11/10/24 11:45) lower extremity parasthesia tamsulosin Adverse Reaction (Intermediate, Verified 11/10/24 11:45) Abdominal Pain Medication List - Last Reconciled 11/10/24 by Memo Gallo PA-C atorvastatin 40 mg PO BEDTIME 90 days blood pressure monitor (Blood Pressure Kit) As directed blood sugar diagnostic (FreeStyle Lite Strips) As directed cetirizine 10 mg PO DAILY 90 days cimetidine 200 mg PO DAILY 90 days CPAP (CPAP Machine/Device) As directed dicyclomine 20 mg PO QID 90 days doxazosin 4 mg PO DAILY 14 days dutasteride 0.5 mg PO DAILY fluticasone propionate 50 mcg/actuation (Flonase Allergy Relief) 1 spray intranasal BID 30 days lancets (FreeStyle Lancets) As directed metformin 500 mg PO BID pantoprazole 40 mg PO DAILY pyridoxine (vitamin B6) 100 mg PO DAILY 90 days semaglutide (Ozempic) 0.5 mg (0.736 mL) subcut QWEEK 4 weeks sucralfate 20 mL PO DAILY tadalafil 5 mg PO DAILY 90 days Tobacco use date assessed: 11/10/24 Fall risk assessment: No Falls in past year Last assessed Fall Risk: 11/10/24 Dental Screening Dental Screen Date: 11/10/24 Did you have a dental visit in the last 12 months?: Yes Did you have a dental problem in the last 6 months where you did not have access to dental care?: No Was dental information given to patient?: Patient has dentist HPI annual exam - see comments HPI Details Patient is a 69-year-old male here today for a routine annual physical ? Patient has a past medical history significant for hypertension, type 2 diabetes, GERD BPH, nephrolithiasis .. Hypertension:? Blood pressure today in office acceptable.? Continue him on current dose of doxazosin . .. Hyperlipidemia: Was previously on atorvastatin though for some unclear reason has not been taking his statin therapy. Will recheck lipid panel to ensure appropriate LDL below 100 and consider restarting statin therapy. .. GERD: Was previously found to have a peptic ulcer on endoscopy. Patient continues on PPI therapy with good effect. He denies any further GI/ epigastric discomforts. Does have Carafate liquid available to him. .. Type 2 diabetes: Today's A1c is 6.5 . He does report having a lot of issues with diet control. He continues on Ozempic 0.5 mg with good effect on glycemic control though has not lost any weight. Patient is interested in trying an alternative GLP 1 to help him lose weight .. BPH: Has had elevated PSAs, followed by Urology whom is following his PSAs. He does report some urinary frequency which he attributes to his diabetes as well. Vaccines: Up-to-date with COVID vaccine, tetanus vaccine and pneumonia vaccine , considering shingles vaccine, considering flu vaccine. Colorectal cancer screening: Colonoscopy done in 2022, repeat 5 years due to fair prep Laboratory Tests 10/08/23 10/08/23 08/26/24 11:51 11:59 15:11 Hgb A1c (Clinic) 6.1 H PSA Screen 5.42 H Ur Leukocyte Sandra ase Trace H 11/09/24 11/09/24 08:46 08:47 Hgb A1c (Clinic) PSA Screen 3.83 Ur Leukocyte Sandra ase Trace H [facility] Medical History Tubular adenoma of colon Borderline high cholesterol Screening PSA (prostate specific antigen) Adult general medical exam Constipation Overweight (BMI 25.0-29.9) Headache BPH loc w urin obs/LUTS Abdominal mass Presbyopia Allergic rhinitis Elevated PSA BPH (benign prostatic hyperplasia) Elevated cholesterol GERD (gastroesophageal reflux disease) Surgical History S/P laparoscopic cholecystectomy (~06/03/21) History of colonoscopy History of local excision of skin lesion History of prostate surgery History of parathyroidectomy History of lithotripsy History of inguinal hernia repair, bilateral Family History Mother No problems noted. Father No problems noted. Social History Household Members: Spouse Housing: House Do you presently have visiting nurse or other home services: No Alcohol intake: never Patient Tobacco Use Status: Never used Tobacco e-Cigarette/Vaping Use: Never Used Second Hand Smoke Exposure: No service: No Current occupational status: employed Cognitive needs: No Hearing needs: No Vision needs: Yes Questionnaire PHQ-9 Over the last 2 weeks, how often have you been bothered by any of the following problems? 1. Little interest or pleasure in doing things: not at all 2. Feeling down, depressed, or hopeless: not at all 3. Trouble falling or staying asleep, or sleeping too much: not at all 4. Feeling tired or having little energy: not at all 5. Poor appetite or overeating: not at all 6. Feeling bad about yourself - or that you are a failure or have let yourself or your family down: several days 7. Trouble concentrating on things, such as reading the newspaper or watching television: not at all 8. Moving or speaking so slowly that other people could have noticed. Or the opposite - being so fidgety or restless that you have been moving around a lot more than usual: several days 9. Thoughts that you would be better off or of hurting yourself in some way: not at all Total score: 2 Depression Screening Interpretation: Negative Depression Screening Done: Yes 00816 - PHQ-9 Billing: Yes Source: Developed by Drs. Samuel Charles, Nickie Duran, Quoc Melendez and colleagues, with an educational maria ines from [employer]. Thrive Questionnaire Date Thrive assessed: 08/26/24 I am a: Patient What is your living situation today?: I have a steady place to live Within the past 12 months, did the food you bought not last and you didn't have the money to get more?: Sometimes True Within the past 12 months, did you worry whether your food would run out before you got money to buy more?: Sometimes True Do you have trouble paying for medicines?: Yes Do you have trouble getting transportation to medical appointments?: No Do you have trouble paying your heating and electricity bill?: No Do you have trouble taking care of your child, family member or friend?: No Do you have trouble with day-to-day activities such as bathing, preparing meals, shopping, managing finances, etc.?: Yes Are you currently unemployed and looking for a job?: No Are you interested in more education?: No Please select the resources that you would like help with: None THRIVE Score: 2 AUDIT C Alcohol Use Questionnaire (AUDIT-C) 1. How often do you have a drink containing alcohol?: Never 2. How many drinks containing alcohol do you have on a typical day when you are drinking?: 1 or 2 (0) 3. How often do you have six or more drinks on one occasion?: Never Total Score: 0 Score Reviewed/Action Taken: No GERTRUDE-7 AMB Questionnaire GERTRUDE-7 Date GERTRUDE - 7 assessed: 11/10/24 Feeling nervous, anxious, or on edge: 0 = Not at all Not being able to stop or control worryin = Not at all Worrying too much about different things: 0 = Not at all Trouble relaxin = Not at all Being so restless that it is hard to sit still: 0 = Not at all Becoming easily annoyed or irritable: 0 = Not at all Feeling afraid as if something awful might happen: 0 = Not at all Total GERTRUDE-7 score (0-4 normal; 5-9 mild; 10-14 moderate; 15-21 severe): 0 Source: Developed by Drs. Samuel Charles, Nickie Duran, Quoc Melendez and colleagues, with an educational maria ines from [employer]. GERTRUDE-7 Assessment Billing GERTRUDE-7 Assessment Tool: GERTRUDE-7 Assessment 37322 Review of Systems Const Denies body aches, Denies chills, Denies excessive sweating, Denies fatigue, Denies fever(s) and Denies headache(s) Eyes Denies blurry vision ENT Denies dysphagia, Denies vertigo, Denies dizziness, Denies headache(s), Denies hearing loss and Denies tinnitus Card Denies chest pain, Denies chest pain with activity, Denies syncope, Denies irregular heart rhythm and Denies dyspnea Resp Denies chest congestion, Denies cough, Denies hemoptysis, Denies dyspnea and Denies wheezing GI Denies abdominal pain, Denies melena, Denies hematochezia, Denies coffee ground emesis, Denies dysphagia, Denies diarrhea, Denies nausea and Denies vomiting Denies difficulty urinating, Denies dysuria, Denies urinary frequency, Denies urinary hesitancy and Denies urinary urgency Musc Denies arthralgias, Denies limited range of motion, Denies muscle cramps and Denies muscle weakness Skin/Breast Denies rash and Denies skin ulcer Neuro Denies Abnormal speech present, Denies confusion, Denies vertigo, Denies dizziness, Denies syncope, Denies headache(s), Denies memory loss and Denies seizure-like activity Psych Denies anxiety, Denies confusion, Denies depression, Denies memory loss, Denies panic attacks and Denies paranoia Endo Denies excessive sweating, Denies fatigue, Denies flushing, Denies polydipsia and Denies polyuria Aller/Immun Denies wheezing Physical exam (Primary Care) Vital Signs: Last Vital Signs Pulse 71 11/10/24 11:35 BP 130/60 11/10/24 11:35 Pulse Ox 96 11/10/24 11:35 Oxygen Delivery Method Room Air 11/10/24 11:35 BMI result Body Mass Index 28.3 Tobacco/Smoking Status: Tobacco use Status Tobacco use date assessed 11/10/24 11/10/24 11:36 Patient Tobacco Use Status Never used Tobacco 11/10/24 11:36 e-Cigarette/Vaping Use Never Used 11/10/24 11:36 PHQ-9: PHQ-9 Score PHQ-9: Total score 2 11/10/24 12:37 Depression Screening Interpretation: Negative Thrive Assessment: Date of Thrive Assessment Date Thrive assessed 08/26/24 11/10/24 11:36 Const General: cooperative, comfortable, no acute distress, alert and awake; No confusion Orientation/consciousness: oriented to person, oriented to place, patient oriented x3 and No confusion HENMT Head: Yes normocephalic Ears: external ears normal and TM's normal bilaterally Face and sinus: No sinus tenderness Mouth: Normal oral and palatal mucosa present and tongue normal Teeth and gingiva: dentition normal and gingiva normal Throat: Yes posterior oropharynx normal, Yes tonsils normal and Yes uvula m idline Eyes Conjunctivae: conjunctivae normal Sclerae: sclerae normal Pupils: Equal, round and reactive pupils present EOM: EOMs intact bilaterally Direct Ophthalmoscopy: No no photophobia Neck Neck: Yes no lymphadenopathy, No tender and Yes no JVD Thyroid: Thyroid normal Carotids: no bruits Chest Chest palpation & inspection: no tenderness Resp Effort & Inspection: normal respiratory effort, no audible wheezes, not labored and no stridor Auscultation: no crackles, no rales, no rhonchi and no wheezes Cardio Jugular venous distension: no JVD Rate: regular rate, not bradycardic and not tachycardic Rhythm: regular rhythm Bruits: no carotid bruits Peripheral pulses: Peripheral pulses 2+ throughout GI Inspection: Yes normal to inspection, No abdominal wall ecchymosis and No visible herniation Palpation (GI): Soft to palpation, nontender, no guarding, not rigid and No hepatosplenomegaly present Auscultation: normoactive bowel sounds General: Yes no CVA tenderness Back/Spine/Pelvis Back: no CVA tenderness and No back tenderness Cervical Spine: cervical ROM normal Thoracic/Lumbar Spine: thoracic and lumbar spine normal to inspection, straight leg raise negative bilaterally, No thoraco-lumbar ROM limited and No lumbar spinal tenderness Skin Lesions: no lesions Rashes: no rashes Wounds: no wounds Neuro General: oriented to person, oriented to place, patient oriented x3, CN's II-XI intact bilaterally and No confusion Cranial nerves: Yes Equal, round and reactive pupils present and Yes Normal accommodation reflex present Cognition (Neuro): normal cognition Speech: No Abnormal speech present Gait exam (Neuro): Normal gait present Motor exam (neuro): 5/5 motor strength present throughout Extrem Right upper extremity: full ROM; no cyanosis Left upper extremity: full ROM; no cyanosis Right lower extremity: no edema Left lower extremity: no edema Psych Appearance: grossly normal Mental Status: mental status grossly normal Affect: normal affect Attitude: cooperative Thought process: Normal thought process present Results AMB Hemoglobin A1c AMB Hemoglobin A1c 6.5 % Last Edit by CATHIE Cisneros on 11/10/24 12:39 Results Reviewed Results Reviewed: Laboratory Last Values Hgb A1c (Clinic) 6.5 % (4.0-6.0) H 11/10/24 11:32 Coding Level of Care Code Est Pt Prev Care >65y(49745) Diagnoses Annual physical exam Z00.00 Essential hypertension I10 Hypertension type: essential hypertension Mixed hyperlipidemia E78.2 Hyperlipidemia type: mixed hyperlipidemia Type 2 diabetes mellitus without complication, without long-term current use of insulin E11.9 Diabetes mellitus complication status: without complication Diabetes mellitus care home insulin use: without emt intermediate use Diabetes mellitus type: type 2 BPH loc w urin obs/LUTS N40.1 Additional Codes GERTRUDE-7 Assessment Billing - GERTRUDE-7 Assessment Tool: GERTRUDE-7 Assessment [id number] ([id number]) PHQ-9 - 97677 - PHQ-9 Billing: Yes ([id number]) Assessment & Plan Assessment & Plan (1) Annual physical exam: Code(s): Z00.00 - Encounter for general adult medical examination without abnormal findings Category: Medical Plan: As per HPI (2) HTN (hypertension): Code(s): I10 - Essential (primary) hypertension Category: Medical Qualifiers: Hypertension type: essential hypertension Qualified Code(s): I10 - Essential (primary) hypertension Plan: Patient's blood pressure acceptable today in office. Will continue his current dose of doxazosin, was previously on lisinopril though for some unclear reason has not been on this medication. Goal blood pressure to be below 140/90 (3) Hyperlipidemia: Code(s): E78.5 - Hyperlipidemia, unspecified Category: Medical Qualifiers: Hyperlipidemia type: mixed hyperlipidemia Qualified Code(s): E78.2 - Mixed hyperlipidemia Plan: Patient continues on atorvastatin 40 mg. Will recheck lipid panel to ensure stable LDL. Goal LDL to be below 100. (4) Diabetes mellitus: Code(s): E11.9 - Type 2 diabetes mellitus without complications Category: Medical Qualifiers: Diabetes mellitus complication status: without complication Diabetes mellitus care home insulin use: without care home use Diabetes mellitus type: type 2 Qualified Code(s): E11.9 - Type 2 diabetes mellitus without complications Plan: Patient's type 2 diabetes well controlled with current management. Today's A1c is 6.5 He does have good glycemic control with GLP ones. He is interested in losing a bit of weight in his interested in trying a alternative GLP 1 thus will transitioned from Ozempic to zepbound.. Goal A1c is to remain below 7.0 (5) BPH loc w urin obs/LUTS: Code(s): N40.1 - Benign prostatic hyperplasia with lower urinary tract symptoms Category: Medical Plan: Patient has a history of BPH, continues on doxazosin which has been somewhat effective. He does report some urinary frequency particularly when he eats fruits and high sugar content. Otherwise PSA is now normal. Orders: Orders AMB Hemoglobin A1c Today E11.9 - Type 2 diabetes mellitus without complications Lipid Panel Today E78.2 - Mixed hyperlipidemia Complete Blood Count no Diff Today E11.9 - Type 2 diabetes mellitus without complications Comprehensive [place]. Panel Fast Today E11.9 - Type 2 diabetes mellitus without complications Prostate Specific Antigen Scr Today N40.1 - Benign prostatic hyperplasia with lower urinary tract symptoms, Z12.5 - Encounter for screening for malignant neoplasm of prostate Medications: New tirzepatide (Mounjaro) 5 mg (0.5 mL) subcut QWEEK 2 mL 3RF 4 weeks E11.9 - Type 2 diabetes mellitus without complications, N40.1 - Benign prostatic hyperplasia with lower urinary tract symptoms Changed From doxazosin 4 mg PO DAILY 14 days 14 tabs 0RF N20.0 - Calculus of kidney To doxazosin 4 mg PO DAILY 90 tabs 3RF 90 days N20.0 - Calculus of kidney Discontinued semaglutide (Ozempic) Discontinued Reason: Doctor's Order 0.5 mg (0.736 mL) subcut QWEEK 4 weeks 3 mL 3RF E11.9 - Type 2 diabetes mellitus without complications Patient Instructions: Goal: A1c to remain below 7, LDL to remain below 100 Barriers: Adherence to physical activity and healthy eating habits
[2024-11-10 11:35] VITALS: BP 130/60; PULSE 71; O2SAT 96; BMI 28.3
== END 2024-11-10 12:13 | disposition home or self-care (01) ==
LOC: HO.HMCH 11:21
PROVIDERS: PCP Physician Assistant; Visit Provider Physician Assistant
DX: Z00.00 Encounter for general adult medical examination without abnormal findings (principal); I10 Essential (primary) hypertension; E78.2 Mixed hyperlipidemia; E11.9 Type 2 diabetes mellitus without complications; N40.1 Benign prostatic hyperplasia with lower urinary tract symptoms

== ENCOUNTER → 2024-11-10 11:20 | Outpatient (BNVA) | payer MEDICARE, SELFPAY | PROVIDERS: PCP Physician Assistant; Visit Provider Physician Assistant | DX: Z00.00 Encounter for general adult medical examination without abnormal findings (principal); I10 Essential (primary) hypertension; E78.2 Mixed hyperlipidemia; N40.1 Benign prostatic hyperplasia with lower urinary tract symptoms; N20.0 Calculus of kidney | CPT/HCPCS: 83036; 96127; 99397 ==